=== PATIENT | male | born 1950 | race Caucasian/White ===

== ENCOUNTER 2020-02-21 10:48 | Outpatient (REF) | payer MEDICARE, MEDICAID, SELFPAY ==
[2020-02-21 12:21] LABS: MANUAL DIFF FLAG NO
[2020-02-21 12:40] LABS: Basophils Percent Auto 0.5 % (0-2); Eosinophils Absolute Auto 0.1 X10*3/uL (0.0-0.4); Eosinophils Percent Auto 1.6 % (0-4); Hematocrit 39.8 % (42-52); Hemoglobin 13.1 g/dl (14.0-18.0); Imm Gran Abs Auto 0.01 X10*3/uL (0.00-0.03); Imm Gran Pct Auto 0.2 % (0.0-0.4); Lymphocytes Absolute Auto 2.4 X10*3/uL (1.2-4.9); Mean Corpuscular HGB Conc 32.9 g/dl (31.0-36.0); Mean Corpuscular Hemoglobin 29.9 pg (27.0-33.0); Mean Corpuscular Volume 90.9 fL (80-98); Monocytes Absolute Auto 0.7 X10*3/uL (0.1-1.2); Monocytes Percent Auto 11.5 % (2-11); Neutrophils Absolute Auto 2.6 X10*3/uL (2.0-8.3); Neutrophils Percent Auto 45.2 % (45-73); Platelet Count 263 X10*3/uL (160-400); Red Blood Count 4.38 X10*6/uL (4.60-5.80); Red Cell Distribution Width 13.8 % (11.0-16.0); White Blood Count 5.7 X10*3/uL (4.8-10.8)
[2020-02-21 12:59] LABS: Alanine Aminotransferase 33 U/L (0-40); Albumin Level 4.6 g/dL (3.5-5.0); Alkaline Phosphatase 68 U/L (39-117); Anion Gap 10 (12-20); Aspartate Amino Transferase 29 U/L (5-37); Bilirubin Total 0.6 mg/dL (0.0-1.0); Blood Urea Nitrogen 15 mg/dL (9-16); C Reactive Protein 0.16 mg/dL (< or = 0.50); Calcium 9.7 mg/dL (8.4-10.2); Carbon Dioxide 31 mmol/L (22-29); Chloride 101 mmol/L (96-108); Estimated Glomerular Filt Rate > 60; Glucose Random 200 mg/dL (60-115); Potassium 5.3 mmol/l (3.3-5.1); Sodium 137 mmol/L (135-145); Total Protein 6.9 g/dL (6.5-8.0)
== END 2020-02-21 10:49 | disposition home or self-care (01) ==
LOC: HO.LAB 10:48
PROVIDERS: PCP Internal Medicine; Referring Provider Internal Medicine; Visit Provider Student in an Organized Health Care Education/Training Program
DX: M19.90 Unspecified osteoarthritis, unspecified site (principal); Z79.899 Other long term (current) drug therapy
CPT/HCPCS: 36415; 80053; 85025; 86140; 99212

== ENCOUNTER 2020-07-12 08:30 | Outpatient (REF) | payer MEDICARE, MEDICAID, SELFPAY ==
[2020-07-12 09:37] LABS: MANUAL DIFF FLAG NO
[2020-07-12 09:55] LABS: Basophils Percent Auto 0.4 % (0-2); Eosinophils Absolute Auto 0.2 X10*3/uL (0.0-0.4); Eosinophils Percent Auto 2.8 % (0-4); Hematocrit 41.4 % (42-52); Hemoglobin 13.7 g/dl (14.0-18.0); Imm Gran Abs Auto 0.01 X10*3/uL (0.00-0.03); Imm Gran Pct Auto 0.1 % (0.0-0.4); Lymphocytes Absolute Auto 2.6 X10*3/uL (1.2-4.9); Lymphocytes Percent Auto 36.8 % (20-40); Mean Corpuscular HGB Conc 33.1 g/dl (31.0-36.0); Mean Corpuscular Volume 90.6 fL (80-98); Mean Platelet Volume 11.2 fL (9.4-12.4); Monocytes Absolute Auto 0.5 X10*3/uL (0.1-1.2); Monocytes Percent Auto 6.5 % (2-11); Neutrophils Absolute Auto 3.8 X10*3/uL (2.0-8.3); Neutrophils Percent Auto 53.4 % (45-73); Platelet Count 250 X10*3/uL (160-400); Red Blood Count 4.57 X10*6/uL (4.60-5.80); Red Cell Distribution Width 13.4 % (11.0-16.0); White Blood Count 7.1 X10*3/uL (4.8-10.8)
[2020-07-12 10:18] LABS: Alanine Aminotransferase 36 U/L (0-40); Albumin Level 4.4 g/dL (3.5-5.0); Alkaline Phosphatase 71 U/L (39-117); Anion Gap 10 (12-20); Aspartate Amino Transferase 26 U/L (5-37); Bilirubin Total 0.8 mg/dL (0.0-1.0); Blood Urea Nitrogen 15 mg/dL (9-16); C Reactive Protein 0.14 mg/dL (< or = 0.50); Calcium 9.7 mg/dL (8.4-10.2); Carbon Dioxide 31 mmol/L (22-29); Chloride 105 mmol/L (96-108); Estimated Glomerular Filt Rate > 60; Glucose Random 162 mg/dL (60-115); Potassium 5.3 mmol/L (3.3-5.1); Sodium 141 mmol/L (135-145); Total Protein 6.9 g/dL (6.5-8.0)
== END 2020-07-12 08:31 | disposition home or self-care (01) ==
LOC: HO.LAB 08:30
PROVIDERS: PCP Internal Medicine; Referring Provider Internal Medicine; Visit Provider Student in an Organized Health Care Education/Training Program
DX: M19.90 Unspecified osteoarthritis, unspecified site (principal); Z79.899 Other long term (current) drug therapy
CPT/HCPCS: 36415; 80053; 85025; 86140; 99212

== ENCOUNTER 2020-10-18 09:25 | Outpatient (REF) | payer MEDICARE, MEDICAID, SELFPAY ==
[2020-10-18 10:44] LABS: MANUAL DIFF FLAG NO
[2020-10-18 10:51] LABS: Basophils Percent Auto 0.3 % (0-2); Eosinophils Absolute Auto 0.1 X10*3/uL (0.0-0.4); Eosinophils Percent Auto 2.1 % (0-4); Hematocrit 38.6 % (42-52); Hemoglobin 13.2 g/dl (14.0-18.0); Imm Gran Abs Auto 0.02 X10*3/uL (0.00-0.03); Imm Gran Pct Auto 0.3 % (0.0-0.4); Lymphocytes Absolute Auto 2.7 X10*3/uL (1.2-4.9); Mean Corpuscular HGB Conc 34.2 g/dl (31.0-36.0); Mean Corpuscular Hemoglobin 30.6 pg (27.0-33.0); Mean Corpuscular Volume 89.6 fL (80-98); Mean Platelet Volume 10.9 fL (9.4-12.4); Monocytes Absolute Auto 0.6 X10*3/uL (0.1-1.2); Monocytes Percent Auto 8.4 % (2-11); Neutrophils Absolute Auto 3.3 X10*3/uL (2.0-8.3); Neutrophils Percent Auto 48.9 % (45-73); Platelet Count 240 X10*3/uL (160-400); Red Blood Count 4.31 X10*6/uL (4.60-5.80); Red Cell Distribution Width 13.6 % (11.0-16.0); White Blood Count 6.8 X10*3/uL (4.8-10.8)
[2020-10-18 11:20] LABS: Alanine Aminotransferase 23 U/L (0-40); Albumin Level 4.2 g/dL (3.5-5.0); Alkaline Phosphatase 65 U/L (39-117); Anion Gap 12 (12-20); Aspartate Amino Transferase 21 U/L (5-37); Bilirubin Total 0.5 mg/dL (0.0-1.0); Blood Urea Nitrogen 12 mg/dL (9-16); C Reactive Protein 0.06 mg/dL (< or = 0.50); Calcium 9.6 mg/dL (8.4-10.2); Carbon Dioxide 29 mmol/L (22-29); Chloride 105 mmol/L (96-108); Estimated Glomerular Filt Rate > 60; Glucose Random 116 mg/dL (60-115); Potassium 4.8 mmol/L (3.3-5.1); Sodium 141 mmol/L (135-145); Total Protein 6.7 g/dL (6.5-8.0)
== END 2020-10-18 09:26 | disposition home or self-care (01) ==
LOC: HO.LAB 09:25
PROVIDERS: PCP Internal Medicine; Visit Provider Student in an Organized Health Care Education/Training Program
DX: M19.90 Unspecified osteoarthritis, unspecified site (principal); Z79.899 Other long term (current) drug therapy
CPT/HCPCS: 36415; 80053; 85025; 86140; 99212

== ENCOUNTER 2021-03-18 09:10 | Outpatient (REF) | payer MEDICARE, MEDICAID, SELFPAY ==
[2021-03-18 11:41] LABS: MANUAL DIFF FLAG NO
[2021-03-18 11:45] LABS: Basophils Percent Auto 0.5 % (0-2); Eosinophils Absolute Auto 0.2 X10*3/uL (0.0-0.4); Hematocrit 40.4 % (42.0-52.0); Hemoglobin 13.5 g/dl (14.0-18.0); Imm Gran Abs Auto 0.02 X10*3/uL (0.00-0.03); Imm Gran Pct Auto 0.2 % (0.0-0.4); Lymphocytes Absolute Auto 2.6 X10*3/uL (1.2-4.9); Lymphocytes Percent Auto 31.7 % (20-40); Mean Corpuscular HGB Conc 33.4 g/dl (31.0-36.0); Mean Corpuscular Hemoglobin 30.5 pg (27.0-33.0); Mean Corpuscular Volume 91.4 fL (80.0-98.0); Mean Platelet Volume 11.3 fL (9.4-12.4); Monocytes Absolute Auto 0.6 X10*3/uL (0.1-1.2); Monocytes Percent Auto 7.6 % (2-11); Neutrophils Absolute Auto 4.8 x10*3/uL (2.0-8.3); Platelet Count 267 X10*3/uL (160-400); Red Blood Count 4.42 X10*6/uL (4.60-5.80); Red Cell Distribution Width 13.7 % (11.0-16.0); White Blood Count 8.2 X10*3/uL (4.8-10.8)
[2021-03-18 12:28] LABS: Erythrocyte Sedimentation Rate 2 MM/HR (0-15)
[2021-03-18 12:33] LABS: Alanine Aminotransferase 26 U/L (0-40); Albumin Level 4.1 g/dL (3.5-5.0); Alkaline Phosphatase 84 U/L (39-117); Anion Gap 13 (12-20); Aspartate Amino Transferase 27 U/L (5-37); Bilirubin Total 0.8 mg/dL (0.0-1.0); Blood Urea Nitrogen 11 mg/dL (9-16); C Reactive Protein 0.12 mg/dL (< or = 0.50); Calcium 9.5 mg/dL (8.4-10.2); Carbon Dioxide 29 mmol/L (22-29); Chloride 105 mmol/L (96-108); Cholesterol 170 mg/dL; Estimated Glomerular Filt Rate > 60; Glucose Fasting 200 mg/dL (60-99); HDL Cholesterol 72 mg/dL; Iron 126 mcg/dL (45-160); LDL Cholesterol Calculated 86 mg/dl; Percent Iron Saturation 46 % (15-50); Potassium 4.6 mmol/L (3.3-5.1); Sodium 142 mmol/L (135-145); Total Iron Binding Capacity 274 mcg/dL (228-428); Total Protein 6.6 g/dL (6.5-8.0); Triglycerides 64 mg/dL; Unsaturated Iron Binding 148 ug/dL
== END 2021-03-18 09:11 | disposition home or self-care (01) ==
LOC: HO.HMGCLDS 09:10
PROVIDERS: Absent Provider Nurse Practitioner Family; PCP Internal Medicine; Visit Provider Internal Medicine
DX: E10.3299 Type 1 diabetes mellitus with mild nonproliferative diabetic retinopathy without macular edema, unspecified eye (principal); D64.9 Anemia, unspecified; E78.5 Hyperlipidemia, unspecified; M19.90 Unspecified osteoarthritis, unspecified site; I10 Essential (primary) hypertension; Z79.899 Other long term (current) drug therapy
CPT/HCPCS: 36415; 80048; 80053; 80061; 83540; 85025; 85652; 86140

== ENCOUNTER → 2021-03-20 12:55 | Outpatient (BNVA) | payer MEDICARE, MEDICAID, SELFPAY | PROVIDERS: PCP Internal Medicine; Visit Provider Nurse Practitioner Family | DX: M19.90 Unspecified osteoarthritis, unspecified site (principal); Z79.899 Other long term (current) drug therapy | CPT/HCPCS: 99212 ==

== ENCOUNTER 2021-06-16 13:38 | Outpatient (REF) | payer MEDICARE, MEDICAID, SELFPAY ==
[2021-06-16 16:36] LABS: MANUAL DIFF FLAG NO
[2021-06-16 16:37] LABS: Basophils Percent Auto 0.5 % (0-2); Eosinophils Absolute Auto 0.1 X10*3/uL (0.0-0.4); Eosinophils Percent Auto 1.4 % (0-4); Hematocrit 37.5 % (42.0-52.0); Hemoglobin 12.7 g/dl (14.0-18.0); Imm Gran Abs Auto 0.01 X10*3/uL (0.00-0.03); Imm Gran Pct Auto 0.2 % (0.0-0.4); Lymphocytes Absolute Auto 2.4 X10*3/uL (1.2-4.9); Lymphocytes Percent Auto 38.2 % (20-40); Mean Corpuscular HGB Conc 33.9 g/dl (31.0-36.0); Mean Corpuscular Hemoglobin 30.2 pg (27.0-33.0); Mean Corpuscular Volume 89.1 fL (80.0-98.0); Mean Platelet Volume 11.2 fL (9.4-12.4); Monocytes Absolute Auto 0.6 X10*3/uL (0.1-1.2); Monocytes Percent Auto 9.4 % (2-11); Neutrophils Absolute Auto 3.1 x10*3/uL (2.0-8.3); Neutrophils Percent Auto 50.3 % (45-73); Platelet Count 241 X10*3/uL (160-400); Red Blood Count 4.21 X10*6/uL (4.60-5.80); Red Cell Distribution Width 13.9 % (11.0-16.0); White Blood Count 6.3 X10*3/uL (4.8-10.8)
[2021-06-16 16:52] LABS: Alanine Aminotransferase 21 U/L (0-40); Albumin Level 4.2 g/dL (3.5-5.0); Alkaline Phosphatase 67 U/L (39-117); Anion Gap 14 (12-20); Aspartate Amino Transferase 20 U/L (5-37); Bilirubin Total 0.7 mg/dL (0.0-1.0); Blood Urea Nitrogen 14 mg/dL (9-16); C Reactive Protein 0.21 mg/dL (< or = 0.50); Calcium 9.9 mg/dL (8.4-10.2); Carbon Dioxide 27 mmol/L (22-29); Chloride 102 mmol/L (96-108); Estimated Glomerular Filt Rate > 60; Glucose Random 236 mg/dL (60-115); Potassium 4.9 mmol/L (3.3-5.1); Sodium 138 mmol/L (135-145); Total Protein 6.8 g/dL (6.5-8.0)
[2021-06-16 17:45] LABS: Erythrocyte Sedimentation Rate 3 MM/HR (0-15)
== END 2021-06-16 13:39 | disposition home or self-care (01) ==
LOC: HO.HMGCLDS 13:38
PROVIDERS: Absent Provider Internal Medicine; PCP Internal Medicine; Visit Provider Nurse Practitioner Family
DX: M19.90 Unspecified osteoarthritis, unspecified site (principal)
CPT/HCPCS: 36415; 80053; 85025; 85652; 86140

== ENCOUNTER → 2021-06-19 13:25 | Outpatient (BNVA) | payer MEDICARE, MEDICAID, SELFPAY | PROVIDERS: PCP Internal Medicine; Visit Provider Nurse Practitioner Family | DX: M19.90 Unspecified osteoarthritis, unspecified site (principal); Z79.899 Other long term (current) drug therapy | CPT/HCPCS: 99212 ==

== ENCOUNTER → 2021-06-25 10:30 | Outpatient (BNVA) | payer MEDICARE, MEDICAID, SELFPAY | PROVIDERS: PCP Internal Medicine; Referring Provider Internal Medicine; Visit Provider Physician Assistant | DX: Z86.010 Personal history of colon polyps (principal) | CPT/HCPCS: 99202 ==

== ENCOUNTER 2021-08-06 09:44 | Day surgery (SDC) | payer MEDICARE, MEDICAID, SELFPAY ==
[2021-08-01 12:43] VITALS: BMI 25.0
[2021-08-06 10:38] VITALS: BP 152/66; PULSE 61; RESP 18; TEMP 36.9; O2SAT 100
--- NOTE | 2021-08-06 10:38 | MHC.SHP ---
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) History of Previous Operations: Relevant previous surgery/procedure and date(s) (Hx of colonoscopy No pertinent past surgical history) Allergies: Allergies Allergy/AdvReac Type Severity Reaction Status Date / Time No Known Allergies Allergy Verified 06/25/21 10:35 Review of Systems Sugical H&P ROS: Negative: Constitution, Cardiovascular, Respiratory, Neurological, Psychiatric, Hem-Onc, Allergic/Immunologic, Gastrointestinal, Genitourinary, Musculoskeletal, Integumentary, Endocrine and Eyes/Ears/Nose/Throat Exam Surgical H&P Exam: Normal: HEENT, Normal: Heart, Normal: Lungs, Normal: Extremities, Normal: Abdomen, Normal: Skin and Normal: Neurological Plan Diagnosis/Plan: Unchanged I have reviewed the history and physical and performed a pertinent physical examination on my patient. No changes have occurred unless specified.
[2021-08-06 10:52] LABS: Glucose, Whole Blood 166 mg/dL (60-115)
--- NOTE | 2021-08-06 12:03 | PM.OP ---
Brief Operative Note Date of Service: 08/06/21 Pre-op diagnosis: screening colonoscopy Post-op diagnosis: same Procedure: see op note Surgeon: Guillermina Mejía MD Anesthesia: MAC Was an Travel Registered Nurse Pacu used for this Procedure?: No Estimated blood loss (mL): 0 Condition: stable Disposition: PACU
--- NOTE | 2021-08-06 12:03 | W.PM.OPN ---
Operative Note Operative Note Date of Service: 08/06/21 Narrative: Operative Information Procedure Description: Colonoscopy Indication: screening colonoscopy Anesthesia: MAC COLONOSCOPY Instrument: Olympus variable stiffness pediatric scope 190L Colonoscopy Monitoring: Vital signs and clinical assessment, continuous EKG monitoring, Pulse oximetry, Carbon Dioxide monitoring and blood pressure monitoring were done throughout the procedure. Colon withdrawal time was 11 minutes. Procedure: The patient was placed in the left lateral decubitis position and pre-procedure medications were administered. After a digital rectal examination of the ano-rectum, the video colonoscope was inserted into the rectum and advanced through the colon to the cecum/TI. The colonoscope was slowly withdrawn in a retrograde panoramic fashion and the colon mucosa was carefully examined including a retroflexed view of the rectum. Findings and interventions are described below. Procedure Difficulty: moderate due to tortuous colon Findings: Terminal Ileum-normal Cecum:normal Ascending Colon: 10 mm sessile polyp removed with cold forceps Transverse Colon -normal Descending Colon:normal Sigmoid Colon: normal Rectum: Retroflexion with small internal hemorrhoids, grade I Anorectum - normal Colon preparation: Victor Bowel Preparation Scale Right colon; 3 Transverse colon: 3 Left colon; 3 (0 = Unprepared colon segment with mucosa not seen due to solid stool that cannot be cleared. 1 = Portion of mucosa of the colon segment seen, but other areas of the colon segment not well seen due to staining, residual stool and/or opaque liquid. 2 = Minor amount of residual staining, small fragments of stool and/or opaque liquid, but mucosa of colon segment seen well. 3 = Entire mucosa of colon segment seen well with no residual staining, small fragments of stool or opaque liquid) Impression and Post Procedure Diagnosis: polyp internal hemorrhoids Plan: High fiber diet leaflet Avoid straining at stool, epsom salts and sitz bath, anusol supps or cream Repeat Colonoscopy in 5 years if adenomatous polyp, 10 yrs if benign or earlier if clinically indicated Above findings were reviewed with the patient and relevant handouts were provided if indicated.
--- NOTE | 2021-08-06 12:06 | HO.ANESPROP2 ---
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 Son No problems noted. Son No problems noted. Brother No problems noted. Brother No problems noted. Brother No problems noted. Brother No problems noted. Family history of problems with anesthesia: No Surgical History Surgical History Hx of colonoscopy No pertinent past surgical history History of Problems with Anesthesia: No Social History Social History Alcohol intake: current Alcohol intake frequency: a few times a month Alcohol type: beer Patient Tobacco Use Status: Never used Tobacco e-Cigarette/Vaping Use: Never Used Second Hand Smoke Exposure: No Substance Use Type Other:: cbd Are you DNR?: No Advance Directives: No Advance Directives Information Provided: Yes Recently lost weight without trying: No Current occupational status: retired Meds Allergies Allergy/AdvReac Type Severity Reaction Status Date / Time No Known Allergies Allergy Verified 06/25/21 10:35 Home Medications Medication Instructions Recorded Confirmed Last Taken Type aspirin 81 mg tablet,delayed 81 mg PO DAILY 02/21/20 03/25/21 Unknown History release (Adult Low Dose Aspirin) calcium carbonate 600 mg-vitamin 1 tab PO DAILY 02/21/20 03/25/21 Unknown History D3 10 mcg (400 unit) tablet (Calcium 600 + D(3)) insulin aspart U-100 100 unit/mL 5 unit SUBCUT DIRECTED ml 02/21/20 03/25/21 Unknown History (3 mL) subcutaneous pen (Novolog Flexpen U-100 Insulin aspart) insulin glargine 100 unit/mL 20 unit SUBCUT DIRECTED ml 02/21/20 03/25/21 Unknown History subcutaneous solution (Lantus U-100 Insulin) rzcnfvvs-ixw-dgbnq acid 0.4 1 tab PO DAILY 02/21/20 03/25/21 Unknown History mg-lycopene 300 mcg-lutein 250 mcg tablet (Centrum Silver) insulin syringe-needle U-100 0.3 #10 ea 06/25/21 Unknown History mL 31 gauge x 08/25 Exam Exam Date and Time: August 06, 2021 1206 Height,Weight and Vital Signs: Height 5 ft 7 in Weight 72.575 kg Last Vital Signs Temp 98.4 F 08/06/21 10:38 Pulse 61 08/06/21 10:38 Resp 18 08/06/21 10:38 BP 152/66 H 08/06/21 10:38 Pulse Ox 100 08/06/21 10:38 Pertinent Lab Results Pertinent Lab Results: Laboratory Tests 08/06/21 10:36 POC Glucose 166 H Airway Mallampati Class: II TM Dist: >3cm Neck ROM: Full Heart: rrr Lungs: cta Assessment and Plan Assessment Anesthesia Assessment: Anesthesia Plan Discussed and Chart Reviewed Final Anesthetic Review Family History of Problems with Anesthesia: No History of Problems with Anesthesia: No NPO: Yes ASA Class: III Final Preanesthetic Review: No Changes in Pt Med Stat, Meds/Allgs Chart Reviewed, Consent Obtained/Reviewed and Anes Risks/Benef Reviewed Patient Risk: Intermediate Procedure Risk: Intermediate Anesthetic Plan Anesthetic Plan: MAC: Disposition: Standard PACU
[2021-08-06] MEDS: Lactated Ringers 1,000 ML 50 ML IVCONT (12:10)
[2021-08-06 12:47] VITALS: BP 110/45; PULSE 64; RESP 16; TEMP 36.7; O2SAT 100
[2021-08-06 12:58] LABS: Glucose, Whole Blood 126 mg/dL (60-115)
[2021-08-06 13:12] VITALS: BP 139/61; PULSE 55; RESP 16; TEMP 36.6; O2SAT 100
== END 2021-08-06 13:53 | disposition home or self-care (01) ==
PROVIDERS: PCP Internal Medicine; Visit Provider Internal Medicine Gastroenterology
PROC: 0DJD8ZZ Inspection of Lower Intestinal Tract, Via Natural or Artificial Opening Endoscopic (ICD-10-PCS; CPT 45378; principal; 2021-08-06 11:00)
DX: Z12.11 Encounter for screening for malignant neoplasm of colon (principal); Z86.010 Personal history of colon polyps; K63.5 Polyp of colon; K64.0 First degree hemorrhoids; Q43.8 Other specified congenital malformations of intestine; D64.9 Anemia, unspecified; E78.5 Hyperlipidemia, unspecified; I10 Essential (primary) hypertension; M13.80 Other specified arthritis, unspecified site; E10.319 Type 1 diabetes mellitus with unspecified diabetic retinopathy without macular edema; Z79.4 Long term (current) use of insulin; Z79.82 Long term (current) use of aspirin; Z79.899 Other long term (current) drug therapy
CPT/HCPCS: 45380; 82947; 88305

== ENCOUNTER → 2021-10-07 12:53 | Outpatient (BNVA) | payer MEDICARE, MEDICAID, SELFPAY | PROVIDERS: PCP Internal Medicine; Visit Provider Nurse Practitioner Family | DX: M19.90 Unspecified osteoarthritis, unspecified site (principal); Z79.899 Other long term (current) drug therapy | CPT/HCPCS: 99212 ==

== ENCOUNTER 2021-10-11 09:00 | Outpatient (REF) | payer MEDICARE, MEDICAID, SELFPAY ==
[2021-10-11 11:03] LABS: MANUAL DIFF FLAG NO
[2021-10-11 11:22] LABS: Basophils Percent Auto 0.5 % (0-2); Eosinophils Absolute Auto 0.2 X10*3/uL (0.0-0.4); Eosinophils Percent Auto 3.2 % (0-4); Hematocrit 40.6 % (42.0-52.0); Hemoglobin 13.6 g/dl (14.0-18.0); Imm Gran Abs Auto 0.01 X10*3/uL (0.00-0.03); Imm Gran Pct Auto 0.2 % (0.0-0.4); Lymphocytes Absolute Auto 2.8 X10*3/uL (1.2-4.9); Lymphocytes Percent Auto 47.9 % (20-40); Mean Corpuscular HGB Conc 33.5 g/dl (31.0-36.0); Mean Corpuscular Hemoglobin 30.4 pg (27.0-33.0); Mean Corpuscular Volume 90.6 fL (80.0-98.0); Mean Platelet Volume 11.2 fL (9.4-12.4); Monocytes Absolute Auto 0.5 X10*3/uL (0.1-1.2); Monocytes Percent Auto 8.1 % (2-11); Neutrophils Absolute Auto 2.4 x10*3/uL (2.0-8.3); Neutrophils Percent Auto 40.1 % (45-73); Platelet Count 237 X10*3/uL (160-400); Red Blood Count 4.48 X10*6/uL (4.60-5.80); Red Cell Distribution Width 13.8 % (11.0-16.0); White Blood Count 5.9 X10*3/uL (4.8-10.8)
[2021-10-11 11:23] LABS: Alanine Aminotransferase 24 U/L (0-40); Albumin Level 4.2 g/dL (3.5-5.0); Alkaline Phosphatase 73 U/L (39-117); Anion Gap 12 (12-20); Aspartate Amino Transferase 24 U/L (5-37); Bilirubin Total 0.6 mg/dL (0.0-1.0); Blood Urea Nitrogen 16 mg/dL (9-16); C Reactive Protein 0.09 mg/dL (< or = 0.50); Calcium 9.4 mg/dL (8.4-10.2); Carbon Dioxide 28 mmol/L (22-29); Chloride 107 mmol/L (96-108); Cholesterol 180 mg/dL; Estimated Glomerular Filt Rate > 60; Glucose Fasting 116 mg/dL (60-99); HDL Cholesterol 73 mg/dL; Iron 82 mcg/dL (45-160); LDL Cholesterol Calculated 98 mg/dl; Percent Iron Saturation 30 % (15-50); Potassium 4.8 mmol/L (3.3-5.1); Sodium 142 mmol/L (135-145); Total Iron Binding Capacity 277 mcg/dL (228-428); Total Protein 6.6 g/dL (6.5-8.0); Triglycerides 46 mg/dL; Unsaturated Iron Binding 195 ug/dL
[2021-10-11 12:09] LABS: Erythrocyte Sedimentation Rate 2 MM/HR (0-15)
== END 2021-10-11 09:01 | disposition home or self-care (01) ==
LOC: HO.HMGCLDS 09:00
PROVIDERS: PCP Internal Medicine; Visit Provider Nurse Practitioner Family
DX: E78.5 Hyperlipidemia, unspecified (principal); I10 Essential (primary) hypertension; M19.90 Unspecified osteoarthritis, unspecified site; D64.9 Anemia, unspecified
CPT/HCPCS: 36415; 80048; 80053; 80061; 83540; 85025; 85652; 86140

== ENCOUNTER → 2021-10-23 14:22 | Outpatient (BNVA) | payer MEDICARE, MEDICAID, SELFPAY | PROVIDERS: PCP Internal Medicine; Visit Provider Physician Assistant | DX: K63.5 Polyp of colon (principal); Z86.010 Personal history of colon polyps | CPT/HCPCS: 99212 ==

== ENCOUNTER → 2022-01-07 11:00 | Outpatient (BNVA) | payer MEDICARE, MEDICAID, SELFPAY | PROVIDERS: PCP Internal Medicine; Visit Provider Nurse Practitioner Family | DX: M13.80 Other specified arthritis, unspecified site (principal); R22.41 Localized swelling, mass and lump, right lower limb; Z79.899 Other long term (current) drug therapy | CPT/HCPCS: 99212 ==

== ENCOUNTER 2022-01-13 13:53 | Outpatient (REF) | payer MEDICARE, MEDICAID, SELFPAY ==
--- NOTE | ~2022-01-13 | XR_ITS ---
EXAMINATION: XR TIBIA AND FIBULA, RIGHT CLINICAL INFORMATION: Swelling, mass, and lump of the right lower limb. COMPARISON: Right ankle radiographs dated 11/21/2014. TECHNIQUE: AP and lateral views of the right tibia and fibula were obtained. FINDINGS: No acute fracture or dislocation. No joint space narrowing or marginal osteophytes. No lytic or blastic osseous lesion. Probable phleboliths within the anterior subcutaneous tissues. Atherosclerotic calcifications. XR/XR tibia fibula RT 2V IMPRESSION: Probable phleboliths within the anterior subcutaneous tissues. No acute osseous abnormality.
[2022-01-13 16:31] LABS: MANUAL DIFF FLAG NO
[2022-01-13 16:34] LABS: Basophils Percent Auto 0.4 % (0-2); Eosinophils Absolute Auto 0.1 X10*3/uL (0.0-0.4); Eosinophils Percent Auto 0.9 % (0-4); Hemoglobin 12.4 g/dl (14.0-18.0); Imm Gran Abs Auto 0.02 X10*3/uL (0.00-0.03); Imm Gran Pct Auto 0.3 % (0.0-0.4); Lymphocytes Absolute Auto 2.5 X10*3/uL (1.2-4.9); Mean Corpuscular HGB Conc 33.5 g/dl (31.0-36.0); Mean Corpuscular Volume 89.6 fL (80.0-98.0); Mean Platelet Volume 11.3 fL (9.4-12.4); Monocytes Absolute Auto 0.7 X10*3/uL (0.1-1.2); Monocytes Percent Auto 8.9 % (2-11); Neutrophils Absolute Auto 4.1 x10*3/uL (2.0-8.3); Neutrophils Percent Auto 55.5 % (45-73); Platelet Count 225 X10*3/uL (160-400); Red Blood Count 4.13 X10*6/uL (4.60-5.80); White Blood Count 7.4 X10*3/uL (4.8-10.8)
[2022-01-13 16:46] LABS: Alanine Aminotransferase 37 U/L (0-40); Aspartate Amino Transferase 44 U/L (5-37); C Reactive Protein 0.16 mg/dL (< or = 0.50); Estimated Glomerular Filt Rate > 60
[2022-01-13 17:24] LABS: Erythrocyte Sedimentation Rate 3 MM/HR (0-15)
== END 2022-01-13 13:54 | disposition home or self-care (01) ==
LOC: HO.HMGCX 13:53
PROVIDERS: PCP Internal Medicine; Visit Provider Nurse Practitioner Family
DX: R22.41 Localized swelling, mass and lump, right lower limb (principal); M19.90 Unspecified osteoarthritis, unspecified site; Z79.899 Other long term (current) drug therapy
CPT/HCPCS: 36415; 73590; 82565; 84450; 84460; 85025; 85652; 86140

== ENCOUNTER 2022-01-28 12:40 | Outpatient (REF) | payer MEDICARE, MEDICAID, SELFPAY ==
[2022-01-28 14:14] LABS: Alanine Aminotransferase 26 U/L (0-40); Aspartate Amino Transferase 27 U/L (5-37)
== END 2022-01-28 12:41 | disposition home or self-care (01) ==
LOC: HO.HMGCLDS 12:40
PROVIDERS: PCP Internal Medicine; Visit Provider Nurse Practitioner Family
DX: Z79.899 Other long term (current) drug therapy (principal)
CPT/HCPCS: 36415; 84450; 84460

== ENCOUNTER 2022-02-26 13:33 | Outpatient (REF) | payer MEDICARE, MEDICAID, SELFPAY ==
[2022-02-26 17:10] LABS: Alanine Aminotransferase 25 U/L (0-40); Alkaline Phosphatase 71 U/L (39-117); Anion Gap 13 (12-20); Aspartate Amino Transferase 23 U/L (5-37); Bilirubin Total 0.8 mg/dL (0.0-1.0); Blood Urea Nitrogen 15 mg/dL (9-16); Calcium 9.9 mg/dL (8.4-10.2); Carbon Dioxide 29 mmol/L (22-29); Chloride 102 mmol/L (96-108); Estimated Glomerular Filt Rate > 60; Glucose Random 197 mg/dL (60-115); Sodium 140 mmol/L (135-145); Total Protein 6.9 g/dL (6.5-8.0)
[2022-02-26 17:20] LABS: Albumin Level 4.3 g/dL (3.5-5.0)
== END 2022-02-26 13:34 | disposition home or self-care (01) ==
LOC: HO.HMGCLDS 13:33
PROVIDERS: PCP Internal Medicine; Visit Provider Nurse Practitioner Family
DX: Z79.899 Other long term (current) drug therapy (principal)
CPT/HCPCS: 36415; 80053

== ENCOUNTER 2022-03-23 10:11 | Outpatient (REF) | payer MEDICARE, MEDICAID, SELFPAY ==
[2022-03-23 11:17] LABS: MANUAL DIFF FLAG NO
[2022-03-23 11:30] LABS: Basophils Percent Auto 0.4 % (0-2); Eosinophils Absolute Auto 0.1 X10*3/uL (0.0-0.4); Eosinophils Percent Auto 1.3 % (0-4); Hematocrit 40.4 % (42.0-52.0); Hemoglobin 13.6 g/dl (14.0-18.0); Imm Gran Abs Auto 0.04 X10*3/uL (0.00-0.03); Imm Gran Pct Auto 0.4 % (0.0-0.4); Lymphocytes Percent Auto 21.8 % (20-40); Mean Corpuscular HGB Conc 33.7 g/dl (31.0-36.0); Mean Corpuscular Hemoglobin 30.4 pg (27.0-33.0); Mean Corpuscular Volume 90.4 fL (80.0-98.0); Mean Platelet Volume 11.7 fL (9.4-12.4); Monocytes Absolute Auto 0.9 X10*3/uL (0.1-1.2); Monocytes Percent Auto 9.5 % (2-11); Neutrophils Absolute Auto 6.1 x10*3/uL (2.0-8.3); Neutrophils Percent Auto 66.6 % (45-73); Platelet Count 251 X10*3/uL (160-400); Red Blood Count 4.47 X10*6/uL (4.60-5.80); Red Cell Distribution Width 13.4 % (11.0-16.0); White Blood Count 9.2 X10*3/uL (4.8-10.8)
[2022-03-23 11:41] LABS: Cholesterol 188 mg/dL; HDL Cholesterol 90 mg/dL; LDL Cholesterol Calculated 87 mg/dl; Triglycerides 58 mg/dL
== END 2022-03-23 10:12 | disposition home or self-care (01) ==
LOC: HO.HMGCLDS 10:11
PROVIDERS: PCP Internal Medicine; Visit Provider Internal Medicine
DX: D64.9 Anemia, unspecified (principal); E78.5 Hyperlipidemia, unspecified
CPT/HCPCS: 36415; 80061; 85025

== ENCOUNTER 2022-03-26 10:55 | Outpatient (AMB) | payer MEDICARE, MEDICAID, SELFPAY ==
--- NOTE | 2022-03-26 11:05 | MHC.PC.OV ---
Vital Signs 03/26/22 11:15 Height 5 ft 7 in Weight 161 lb BMI 25.2 BP 140/66 H Blood Pressure Location Lt brachial Position Sitting Pulse 71 Pulse Source Pulse Oximeter Pulse Oximetry (%) 100 Intake Visit Reasons: Physical Intake Note: Pt is here today for his PE Allergies No Known Allergies Allergy (Verified 09/02/22 11:58) Medication List - Last Reconciled 11/22/22 by Cortney Blakely MD amlodipine 5 mg PO DAILY aspirin (Adult Low Dose Aspirin) 81 mg PO DAILY calcium carbonate-vitamin D3 600 mg-10 mcg (400 unit) (Calcium 600 + D(3)) 1 tab PO DAILY folic acid 1 mg PO DAILY insulin aspart U-100 (Novolog FlexPen U-100 Insulin aspart) 5 units subcut DIRECTED insulin glargine (Lantus U-100 Insulin) 11.5 units subcut DIRECTED insulin syringe-needle U-100 As directed lisinopril 20 mg (2 x 10 mg) PO DAILY methotrexate sodium 15 mg (6 x 2.5 mg) PO QWEEK fdyllzfi-jlp-BD-lycopen-lutein 0.4 mg-300 mcg- 250 mcg (Centrum Silver) 1 tab PO DAILY simvastatin 20 mg PO DAILY Tobacco use date assessed: 03/26/22 Last assessed Fall Risk: 03/26/22 HPI Physical HPI Details 71-year-old male with diabetes mellitus, dyslipidemia , hypertension, and history of seronegative rheumatoid arthritis, here today for his physical exam. He has been feeling well, no new complaints at present time. Currently taking Lantus and NovoLog for his diabetes mellitus, amlodipine, and lisinopril for his blood pressure, and simvastatin for his dyslipidemia and as well as methotrexate for his rheumatoid arthritis. Up-to-date with his screening colonoscopy done by Dr. Mejía, with removal of a tubular adenoma, procedure to be repeated again in 2026. He has had his COVID vaccine but has not yet had his booster, has had his pneumococcal vaccination but is due for his Prevnar 20, up-to-date with his shoes flu shot and Tdap, but has never had his shingles vaccination yet. 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 Son No problems noted. Son No problems noted. Brother No problems noted. Brother No problems noted. Brother No problems noted. Brother No problems noted. Social History Housing: House Alcohol intake: current Alcohol intake frequency: a few times a month Alcohol type: beer Patient Tobacco Use Status: Never used Tobacco e-Cigarette/Vaping Use: Never Used Second Hand Smoke Exposure: No service: No Current occupational status: retired Cognitive needs: No Hearing needs: No Vision needs: Yes Questionnaire PHQ-9 Over the last 2 weeks, how often have you been bothered by any of the following problems? 1. Little interest or pleasure in doing things: not at all 2. Feeling down, depressed, or hopeless: not at all 3. Trouble falling or staying asleep, or sleeping too much: not at all 4. Feeling tired or having little energy: not at all 5. Poor appetite or overeating: not at all 6. Feeling bad about yourself - or that you are a failure or have let yourself or your family down: not at all 7. Trouble concentrating on things, such as reading the newspaper or watching television: not at all 8. Moving or speaking so slowly that other people could have noticed. Or the opposite - being so fidgety or restless that you have been moving around a lot more than usual: not at all 9. Thoughts that you would be better off or of hurting yourself in some way: not at all Total score: 0 Depression Screening Interpretation: Negative 24359 - PHQ-9 Billing: Yes Source: Developed by Drs. Seferino Valdez, Mehreen Briceno, Obie Mcgee and colleagues, with an educational jad from [employer]. Thrive Questionnaire Declines Thrive assessment: No Date Thrive assessed: 03/26/22 I am a: Patient What is your living situation today?: I have a steady place to live Within the past 12 months, did the food you bought not last and you didn't have the money to get more?: Never true Within the past 12 months, did you worry whether your food would run out before you got money to buy more?: Never true Do you have trouble paying for medicines?: No Do you have trouble getting transportation to medical appointments?: No Do you have trouble paying your heating and electricity bill?: Yes Do you have trouble taking care of your child, family member or friend?: No Do you have trouble with day-to-day activities such as bathing, preparing meals, shopping, managing finances, etc.?: No Are you currently unemployed and looking for a job?: No Are you interested in more education?: No AUDIT C Alcohol Use Questionnaire (AUDIT-C) 1. How often do you have a drink containing alcohol?: 4 or more times a week 2. How many drinks containing alcohol do you have on a typical day when you are drinking?: 1 or 2 3. How often do you have six or more drinks on one occasion?: Never Total Score: 4 LESVIA-7 AMB Questionnaire LESVIA-7 Date LESVIA - 7 assessed: 03/26/22 Feeling nervous, anxious, or on edge: 0 = Not at all Not being able to stop or control worryin = Not at all Worrying too much about different things: 0 = Not at all Trouble relaxin = Not at all Being so restless that it is hard to sit still: 0 = Not at all Becoming easily annoyed or irritable: 0 = Not at all Feeling afraid as if something awful might happen: 0 = Not at all Total LESVIA-7 score (0-4 normal; 5-9 mild; 10-14 moderate; 15-21 severe): 0 Source: Developed by Drs. Seferino Valdez, Mehreen Briceno, Obie Mcgee and colleagues, with an educational jad from [employer]. LESVIA-7 Assessment Billing LESVIA-7 Assessment Tool: LESVIA-7 Assessment 60227 Review of Systems Const Denies body aches, Denies fatigue, Denies fever(s) and Denies lethargy Eyes Details: Goes to [facility] for his routine eye exam, currently up-to-date ENT Reports no additional complaints and Reports Normal hearing present Card Denies chest pain, Denies rapid heart rate, Denies irregular heart rhythm, Denies leg edema and Denies lightheadedness Resp Denies chest congestion, Denies cough and Denies pain with cough GI Denies abdominal pain, Denies melena, Denies hematochezia, Denies change in bowel habits and Denies heartburn Reports no additional complaints Musc Reports no additional complaints Skin/Breast Denies breast mass, Denies lesions and Denies rash Neuro Reports no additional complaints, Reports Normal hearing present and Denies Sensory deficit (Neuro) Psych Reports no additional complaints Endo Denies fatigue Stanley/Lymph Denies easy bleeding, Denies easy bruising and Denies lymphadenopathy Aller/Immun Reports no additional complaints Physical exam (Primary Care) Vital Signs: Last Vital Signs Pulse 71 03/26/22 11:15 BP 140/66 H 03/26/22 11:15 Pulse Ox 100 03/26/22 11:15 BMI result Body Mass Index 25.2 Tobacco/Smoking Status: Tobacco use Status Tobacco use date assessed 03/26/22 03/26/22 11:07 Patient Tobacco Use Status Never used Tobacco 03/26/22 11:07 e-Cigarette/Vaping Use Never Used 03/26/22 11:07 PHQ-9: PHQ-9 Score PHQ-9: Total score 0 11/22/22 02:04 Depression Screening Interpretation: Negative Thrive Assessment: Date of Thrive Assessment Date Thrive assessed 03/26/22 03/26/22 11:17 Const General: cooperative, no acute distress and alert Orientation/consciousness: patient oriented x3 HENMT Mouth: Normal oral and palatal mucosa present and moist mucous membranes Eyes General: appearance normal, both eyes and all related structures Neck Neck: Yes full ROM and Yes no lymphadenopathy Thyroid: Thyroid normal Chest Chest palpation & inspection: normal inspection of the chest Resp Effort & Inspection: normal respiratory effort and able to speak in complete sentences Auscultation: clear to auscultation bilaterally Cardio Jugular venous distension: no JVD Rate: regular rate Rhythm: regular rhythm Heart sounds: S1 normal heart sound present and S2 normal heart sound present GI Inspection: Yes normal to inspection Palpation (GI): Soft to palpation Auscultation: normal bowel sounds General: Yes no CVA tenderness Male General Exam: Yes normal external exam Back/Spine/Pelvis Back: no CVA tenderness and No back tenderness Skin General skin exam: no rashes or lesions noted Neuro General: patient oriented x3, gait normal, moves all extremities, no focal motor deficits and CN's II-XI intact bilaterally Cranial nerves: Yes Normal hearing present Gait exam (Neuro): Normal gait present Motor exam (neuro): 5/5 motor strength present throughout Sensory Exam: No Sensory deficit (Neuro) Extrem General: Yes normal to inspection, Yes full ROM, Yes no pedal edema and Yes normal gait Psych Appearance: grossly normal and well kempt Mental Status: mental status grossly normal Speech and movement: Normal speech and movement present Affect: normal affect Attitude: cooperative Thought process: Normal thought process present Results AMB Hemoglobin A1c AMB Hemoglobin A1c Cancelled % Last Edit by Humera Paige CMA on 03/26/22 11:46 AMB Hemoglobin A1c previously reported as 7.3 Humera Paige 03/26/22 11:[address] Blakely pt had his A1C done by Dr. Magana on 01/22/2022, which was 7.7. Results Reviewed Results Reviewed: Laboratory Last Values Hgb A1c (Clinic) Cancelled 03/26/22 11:14 ENTERED: 03/23/22-1016 [facility]: ORDERED: CBC Auto Diff Test Result Flag Reference Site WBC 9.2 4.8-10.8 X10*3/uL RBC 4.47 L 4.60-5.80 X10*6/uL HGB 13.6 L 14.0-18.0 g/dl HCT 40.4 L 42.0-52.0 % MCV 90.4 80.0-98.0 fL MCH 30.4 27.0-33.0 pg MCHC 33.7 31.0-36.0 g/dl RDW 13.4 11.0-16.0 % PLT 251 160-400 X10*3/uL MPV 11.7 9.4-12.4 fL Neut Pct Auto 66.6 45-73 % ImGran Pct Auto 0.4 0.0-0.4 % Lymp Pct Auto 21.8 20-40 % Dougherty Pct Auto 9.5 2-11 % Eos Pct Auto 1.3 0-4 % Baso Pct Auto 0.4 0-2 % NRBC Pct Auto 0.0 0.0-0.2 /100WBC ANC Neut Abs # 6.1 2.0-8.3 x10*3/uL ImGran Abs Auto 0.04 H 0.00-0.03 X10*3/uL Lymph Abs Auto 2.0 1.2-4.9 X10*3/uL Dougherty Abs Auto 0.9 0.1-1.2 X10*3/uL Eos Abs Auto 0.1 0.0-0.4 X10*3/uL Baso Abs Auto 0.0 0.0-0.2 X10*3/uL NRBC Abs Auto 0.000 0.0-0.012 X10*3/uL ENTERED: 03/23/22-[address] [facility] [address]: ORDERED: Lipid Panel Test Result Flag Reference Site Triglyceride 58 mg/dL Desirable Triglyceride: less than 150 mg/dL Borderline High Triglyceride 150-199 mg/dL High Triglyceride: 200-499 mg/dL Very High Triglyceride: greater than or equal to 5OO mg/dL Chol 188 mg/dL Desirable Cholesterol: less than 200 mg/dL Borderline High Cholesterol: 200-239 mg/dL High Cholesterol: greater than 239 mg/dL LDL Calculated 87 mg/dl Desirable LDL: less than 100 mg/dL Near Optimal/Above Optimal LDL: 110-129 mg/dL Borderline High LDL: 130-159 mg/dL High LDL: 160-189 mg/dL Very High LDL: greater than or equal to 190 mg/dL HDL 90 # mg/dL Desirable HDL: greater than 40 mg/dL ENTERED: 02/26/22-[address] [facility] [address]: Cortney Blakely MD ORDERED: CMP Test Result Flag Reference Site Sodium 140 135-145 mmol/L Potassium 4.0 3.3-5.1 mmol/L CL 102 96-108 mmol/L CO2 29 22-29 mmol/L Gap 13 12-20 BUN 15 9-16 mg/dL Creat 0.97 0.5-1.4 mg/dL EGFR > 60 NOTE: For -[place] individuals, multiply the result by 1.210. Chronic Kidney Disease: Estimated GFR < 60 mL/min/1.73m2 Severe Kidney Disease: Estimated GFR < 15 mL/min/1.73m2 Glucose, Harman 197 H 60-115 mg/dL CA 9.9 8.4-10.2 mg/dL Total Bili 0.8 0.0-1.0 mg/dL AST (GOT) 23 5-37 U/L ALT (GPT) 25 0-40 U/L Protein, Total 6.9 6.5-8.0 g/dL Alb 4.3 3.5-5.0 g/dL Alk Phos 71 39-117 U/L Assessment and Plan Assessment & Plan (1) Tubular adenoma: Code(s): D36.9 - Benign neoplasm, unspecified site Plan: Followed by Dr. Mejía, last colonoscopy was in 2021, to be repeated again in 2026 (2) Essential hypertension: Code(s): I10 - Essential (primary) hypertension Plan: Blood pressure goal is less than 130/80. Systolic blood pressure slightly elevated on this visit, will continue to monitor, continue with amlodipine and lisinopril at the same dose. Reinforced importance of following a low sodium diet, getting regular exercise, and lowering stress levels. (3) Type 1 diabetes mellitus with background retinopathy: Code(s): E10.3299 - Type 1 diabetes mellitus with mild nonproliferative diabetic retinopathy without macular edema, unspecified eye Plan: Followed at [facility] by Dr. Dill. Last seen January 2022 with labs ordered including hemoglobin A1c with results unavailable to me at present time. His currently on Lantus and NovoLog pen. Up-to-date with his diabetes retinopathy screening. Reminded to get his COVID booster, Prevnar 20 and shingles vaccination and to get yearly flu shots (4) Dyslipidemia: Code(s): E78.5 - Hyperlipidemia, unspecified Plan: Reviewed recent fasting lipid profile with patient with levels within normal limits continue with simvastatin 20 mg daily , in addition to adherence to low-cholesterol diet and regular exercise, at least 30 minutes 3 to 4 times a week. Advised patient to make healthy food choices, eat more fruits, vegetables, whole grains, wild caught fish and low-fat dairy. Limit amount of meat and fried or fatty food products, as well as processed foods and fast foods. 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 - Encounter for general adult medical examination with abnormal findings Plan: Reviewed recent fasting labs. Recommended dental visit every 6 months and regular yearly eye exams. Take adequate calcium in diet and vitamin-D 3 at 2000 IU per cap once a day, in addition to weight-bearing exercises to help maintain good muscle tone and weight control. Instructed to do self-testicular exam to check for any mass. Up-to-date with his screening colonoscopy to have a repeat done again in 2026. Reminded to get his COVID booster, gets yearly flu shots, get his Prevnar 20 vaccination for prevention of pneumonia and recommended to get shingles vaccination (8) Advanced directives, counseling/discussion: Code(s): Z71.89 - Other specified counseling Plan: Initiated the conversation about Advanced Directives. Advanced Directives help patients prepare for current and future decisions about their medical treatment and place of care. Discussed with patient that it is a process where a patients current condition and prognosis are reviewed, their wishes for information regarding their illness are elicited, and likely medical dilemmas are presented and options discussed. Healthcare proxy form and MOLST form completed today. 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 Advanced directives, counseling/discussion Z. Normocytic normochromic anemia D64.9 Additional Codes LESVIA-7 Assessment Billing - LESVIA-7 Assessment Tool: LESVIA-7 Assessment 77985 ([id number])
[2022-03-26 11:15] VITALS: BP 140/66; PULSE 71; O2SAT 100; BMI 25.2
== END 2022-03-26 12:32 | disposition home or self-care (01) ==
LOC: HO.HMGC 10:56
PROVIDERS: PCP Internal Medicine; Visit Provider Internal Medicine
DX: Z00.01 Encounter for general adult medical examination with abnormal findings (principal); I10 Essential (primary) hypertension; E10.3299 Type 1 diabetes mellitus with mild nonproliferative diabetic retinopathy without macular edema, unspecified eye; M06.00 Rheumatoid arthritis without rheumatoid factor, unspecified site; Z79.899 Other long term (current) drug therapy; D36.9 Benign neoplasm, unspecified site; E78.5 Hyperlipidemia, unspecified; Z71.89 Other specified counseling; D64.9 Anemia, unspecified
CPT/HCPCS: 83036; 99397

== ENCOUNTER → 2022-04-08 10:24 | Outpatient (BNVA) | payer MEDICARE, MEDICAID, SELFPAY | PROVIDERS: PCP Internal Medicine; Visit Provider Nurse Practitioner Family | DX: M06.00 Rheumatoid arthritis without rheumatoid factor, unspecified site (principal); M19.91 Primary osteoarthritis, unspecified site; R22.41 Localized swelling, mass and lump, right lower limb; Z79.899 Other long term (current) drug therapy | CPT/HCPCS: 99212 ==

== ENCOUNTER 2022-05-19 11:08 | Outpatient (REF) | payer MEDICARE, MEDICAID, SELFPAY ==
[2022-05-19 13:53] LABS: MANUAL DIFF FLAG NO
[2022-05-19 13:59] LABS: Basophils Percent Auto 0.6 % (0-2); Eosinophils Absolute Auto 0.1 X10*3/uL (0.0-0.4); Eosinophils Percent Auto 1.5 % (0-4); Hematocrit 39.2 % (42.0-52.0); Hemoglobin 13.2 g/dl (14.0-18.0); Imm Gran Abs Auto 0.02 X10*3/uL (0.00-0.03); Imm Gran Pct Auto 0.3 % (0.0-0.4); Lymphocytes Absolute Auto 2.6 X10*3/uL (1.2-4.9); Lymphocytes Percent Auto 38.6 % (20-40); Mean Corpuscular HGB Conc 33.7 g/dl (31.0-36.0); Mean Corpuscular Hemoglobin 30.3 pg (27.0-33.0); Mean Corpuscular Volume 89.9 fL (80.0-98.0); Mean Platelet Volume 11.6 fL (9.4-12.4); Monocytes Absolute Auto 0.6 X10*3/uL (0.1-1.2); Monocytes Percent Auto 9.1 % (2-11); Neutrophils Absolute Auto 3.4 x10*3/uL (2.0-8.3); Neutrophils Percent Auto 49.9 % (45-73); Platelet Count 245 X10*3/uL (160-400); Red Blood Count 4.36 X10*6/uL (4.60-5.80); Red Cell Distribution Width 13.9 % (11.0-16.0); White Blood Count 6.7 X10*3/uL (4.8-10.8)
[2022-05-19 14:20] LABS: Alanine Aminotransferase 23 U/L (0-40); Aspartate Amino Transferase 27 U/L (5-37); C Reactive Protein < 0.10 mg/dL (< or = 0.50); Estimated Glomerular Filt Rate > 60
[2022-05-19 14:36] LABS: Erythrocyte Sedimentation Rate 3 MM/HR (0-15)
== END 2022-05-19 11:09 | disposition home or self-care (01) ==
LOC: HO.HMGCLDS 11:08
PROVIDERS: PCP Internal Medicine; Visit Provider Nurse Practitioner Family
DX: M06.00 Rheumatoid arthritis without rheumatoid factor, unspecified site (principal); Z79.899 Other long term (current) drug therapy
CPT/HCPCS: 36415; 82565; 84450; 84460; 85025; 85652; 86140

== ENCOUNTER 2022-07-13 11:26 | Outpatient (REF) | payer MEDICARE, MEDICAID, SELFPAY ==
--- NOTE | ~2022-07-13 | XR_ITS ---
EXAMINATION: XR SACROILIAC JOINTS CLINICAL INFORMATION: Sacrococcygeal disorders. COMPARISON: None available. TECHNIQUE: 3 views of the sacroiliac joints FINDINGS: The SI joints are symmetrical. No bony fracture or dislocation seen. No bony erosive changes. The soft tissues are normal. Both hip joint spaces preserved. No bony erosive changes. The soft tissues are normal. XR/XR sacroiliac joint min 3V IMPRESSION: Unremarkable SI joint and hip joint space.
[2022-07-13 14:31] LABS: Alanine Aminotransferase 23 U/L (0-40); Aspartate Amino Transferase 26 U/L (5-37); Cholesterol 192 mg/dL; HDL Cholesterol 78 mg/dL; LDL Cholesterol Calculated 104 mg/dl; Triglycerides 53 mg/dL
== END 2022-07-13 11:27 | disposition home or self-care (01) ==
LOC: HO.HMGCX 11:26
PROVIDERS: PCP Internal Medicine; Visit Provider Internal Medicine
DX: M53.3 Sacrococcygeal disorders, not elsewhere classified (principal); E78.5 Hyperlipidemia, unspecified
CPT/HCPCS: 36415; 72202; 80061; 84450; 84460

== ENCOUNTER 2022-08-04 10:49 | Outpatient (RCR) | payer MEDICARE, MEDICAID, SELFPAY ==
--- NOTE | 2022-08-04 12:14 | MHC.PT.EP ---
[facility] [place] Office [place] Office [place] Office [address] Chino [address] [phone] F: [phone] F: [phone] F: [phone] F: [phone] Physical Therapy Plan of Care Date of Evaluation: Date of Surgery: Diagnosis: This is a 71 male presenting to skilled PT with a script for sacrococcygeal disorders Assessment: This is a 71 male presenting to skilled PT with a script for sacrococcygeal disorders. Pain has been ongoing for about a month when he was laying on his back putting on a trailer hitch. He did not have any pain while doing this or after however the next morning it increased. He was loading and unloading pellets for his stove. He waited 10 days and then went to his PCP. He was given muscle relaxers and has been taking ibuprofen. Pain is located low back, L side and is achy. This can radiate laterally and medially at the thigh and lower leg, pain is achy. Pain is constant. Denies numbness or tingling. Assessment reveals pain that ranges from 4-8/10. Patient demos decreased lumbar, thoracic and hip ROM, strength of gluts, TTP at piriformis and impaired function with rolling in bed, transfers and squatting. Based on functional limitations, impaired QOL and decreased pain tolerance patient is a good candidate for skilled PT 2x/wk for 4wks. Frequency and Duration: The patient will be seen 2x/wk for 4wks Short Term Goals: I in HEP Demo proper squatting and lifting techniques Director Surgical Goals: Improve pain to no more than 2/10 at the worst Report at least 50% improvement in QOL Demo at least 1 grade improvement in glut strength Treatment Plan: Modalities to reduce pain, spasms and effusion. Manual therapy to restore motion and function. Therapeutic exercise to improve strength and flexibility. Neuromuscular re-education for posture and balance. Therapeutic activities to return to functional activities of daily living. Electronically signed by: Ml Street PT Please sign and return to therapist. Thank you for your referral.
--- NOTE | 2022-08-31 13:18 | MHC.PT.DC ---
[facility] [place] Office [place] Office [place] Office [address] Rosie Chino [address] [phone] F: [phone] F: [phone] F: [phone] F: [phone] Physical Therapy Discharge Report Diagnosis: This is a 71 male presenting to skilled PT with a script for sacrococcygeal disorders Date of Surgery: Date of Evaluation: 08/04/22 Date of Discharge: Treatments to Date: 1 Cancellations to Date: 0 No Shows to Date: 0 Discharge Status: Achieved Goals Improved Function Independent with HEP Patient Elected to Stop Discharge Summary: This is a 71 male presenting to skilled PT with a script for sacrococcygeal disorders. Pain has been ongoing for about a month when he was laying on his back putting on a trailer hitch. He did not have any pain while doing this or after however the next morning it increased. He was loading and unloading pellets for his stove. He waited 10 days and then went to his PCP. He was given muscle relaxers and has been taking ibuprofen. Pain is located low back, L side and is achy. This can radiate laterally and medially at the thigh and lower leg, pain is achy. Pain is constant. Denies numbness or tingling. Assessment reveals pain that ranges from 4-8/10. Patient demos decreased lumbar, thoracic and hip ROM, strength of gluts, TTP at piriformis and impaired function with rolling in bed, transfers and squatting. Based on functional limitations, impaired QOL and decreased pain tolerance patient is a good candidate for skilled PT 2x/wk for 4wks however patient called and cancelled follow ups reporting improved pain with HEP alone. Electronically signed by: Ml tSreet PT Please sign and return to therapist. Thank you for your referral.
== END 2022-08-31 13:18 | disposition home or self-care (01) ==
LOC: HO.PTCHIC 10:49
PROVIDERS: PCP Internal Medicine; Visit Provider Internal Medicine
DX: M53.3 Sacrococcygeal disorders, not elsewhere classified (principal)
CPT/HCPCS: 97110; 97162

== ENCOUNTER → 2022-09-02 11:31 | Outpatient (BNVA) | payer MEDICARE, MEDICAID, SELFPAY | PROVIDERS: PCP Internal Medicine; Visit Provider Nurse Practitioner Family ==

== ENCOUNTER 2022-09-02 12:30 | Outpatient (REF) | payer MEDICARE, MEDICAID, SELFPAY ==
[2022-09-02 13:36] LABS: MANUAL DIFF FLAG NO
[2022-09-02 13:45] LABS: Basophils Percent Auto 0.5 % (0-2); Eosinophils Absolute Auto 0.1 X10*3/uL (0.0-0.4); Hematocrit 37.4 % (42.0-52.0); Hemoglobin 12.6 g/dl (14.0-18.0); Imm Gran Abs Auto 0.02 X10*3/uL (0.00-0.03); Imm Gran Pct Auto 0.3 % (0.0-0.4); Lymphocytes Absolute Auto 2.4 X10*3/uL (1.2-4.9); Lymphocytes Percent Auto 30.9 % (20-40); Mean Corpuscular HGB Conc 33.7 g/dl (31.0-36.0); Mean Corpuscular Hemoglobin 30.5 pg (27.0-33.0); Mean Corpuscular Volume 90.6 fL (80.0-98.0); Mean Platelet Volume 11.3 fL (9.4-12.4); Monocytes Absolute Auto 0.5 X10*3/uL (0.1-1.2); Monocytes Percent Auto 6.9 % (2-11); Neutrophils Absolute Auto 4.8 x10*3/uL (2.0-8.3); Neutrophils Percent Auto 60.4 % (45-73); Platelet Count 267 X10*3/uL (160-400); Red Blood Count 4.13 X10*6/uL (4.60-5.80); White Blood Count 7.9 X10*3/uL (4.8-10.8)
[2022-09-02 14:34] LABS: Erythrocyte Sedimentation Rate 4 MM/HR (0-15)
[2022-09-02 15:30] LABS: Alanine Aminotransferase 28 U/L (0-40); Aspartate Amino Transferase 27 U/L (5-37); C Reactive Protein < 0.10 mg/dL (< or = 0.50); Estimated Glomerular Filt Rate > 60
== END 2022-09-02 12:31 | disposition home or self-care (01) ==
LOC: HO.10HDL 12:30
PROVIDERS: Visit Provider Nurse Practitioner Family
DX: M06.00 Rheumatoid arthritis without rheumatoid factor, unspecified site (principal); M19.90 Unspecified osteoarthritis, unspecified site; R22.41 Localized swelling, mass and lump, right lower limb; Z79.899 Other long term (current) drug therapy
CPT/HCPCS: 36415; 82565; 84450; 84460; 85025; 85652; 86140; 99212

== ENCOUNTER 2023-01-25 11:22 | Outpatient (REF) | payer MEDICARE, MEDICAID, SELFPAY ==
[2023-01-25 13:09] LABS: MANUAL DIFF FLAG NO
[2023-01-25 13:26] LABS: Basophils Percent Auto 0.6 % (0-2); Eosinophils Absolute Auto 0.2 X10*3/uL (0.0-0.4); Eosinophils Percent Auto 2.1 % (0-4); Hematocrit 39.6 % (42.0-52.0); Hemoglobin 13.4 g/dl (14.0-18.0); Imm Gran Abs Auto 0.01 X10*3/uL (0.00-0.03); Imm Gran Pct Auto 0.1 % (0.0-0.4); Lymphocytes Absolute Auto 2.4 X10*3/uL (1.2-4.9); Lymphocytes Percent Auto 32.3 % (20-40); Mean Corpuscular HGB Conc 33.8 g/dl (31.0-36.0); Mean Corpuscular Hemoglobin 31.1 pg (27.0-33.0); Mean Corpuscular Volume 91.9 fL (80.0-98.0); Mean Platelet Volume 11.6 fL (9.4-12.4); Monocytes Absolute Auto 0.7 X10*3/uL (0.1-1.2); Monocytes Percent Auto 9.5 % (2-11); Neutrophils Percent Auto 55.4 % (45-73); Platelet Count 265 X10*3/uL (160-400); Red Blood Count 4.31 X10*6/uL (4.60-5.80); White Blood Count 7.3 X10*3/uL (4.8-10.8)
[2023-01-25 13:49] LABS: Alanine Aminotransferase 21 U/L (0-40); Aspartate Amino Transferase 22 U/L (5-37); C Reactive Protein 0.19 mg/dL (< or = 0.50); Estimated Glomerular Filt Rate > 60
[2023-01-25 14:09] LABS: Erythrocyte Sedimentation Rate 4 MM/HR (0-15)
== END 2023-01-25 11:23 | disposition home or self-care (01) ==
LOC: HO.HMGCLDS 11:22
PROVIDERS: PCP Internal Medicine; Visit Provider Nurse Practitioner Family
DX: M06.00 Rheumatoid arthritis without rheumatoid factor, unspecified site (principal); Z79.899 Other long term (current) drug therapy
CPT/HCPCS: 36415; 82565; 84450; 84460; 85025; 85652; 86140

== ENCOUNTER 2023-01-27 12:03 | Outpatient (AMB) | payer MEDICARE, MEDICAID, SELFPAY ==
--- NOTE | 2023-01-27 12:04 | MHC.OFFVIS ---
Intake Vital Signs 01/27/23 12:05 Height 5 ft 7 in Weight 164 lb 14.492 oz BMI 25.8 BP 122/64 Blood Pressure Location Rt brachial Position Sitting Pulse 63 Pulse Source Pulse Oximeter Temp 97.4 F Temp Source Skin Pulse Oximetry (%) 98 Intake Visit Reasons: seronegative RA Intake Note: Patient presents today to follow up on seronegative RA. Last seen- 09/02/22 by Brunilda. Currently on MTX 6 tabs weekly. 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 Accompanied by: Self / Same As Patient Allergies No Known Allergies Allergy (Verified 01/27/23 12:09) Medication List - Last Reconciled 01/27/23 by Adan Smith MD amlodipine 5 mg PO DAILY aspirin (Adult Low Dose Aspirin) 81 mg PO DAILY calcium carbonate-vitamin D3 600 mg-10 mcg (400 unit) (Calcium 600 + D(3)) 1 tab PO DAILY folic acid 1 mg PO DAILY insulin aspart U-100 (Novolog FlexPen U-100 Insulin aspart) 5 units subcut DIRECTED insulin glargine (Lantus U-100 Insulin) 11.5 units subcut DIRECTED insulin syringe-needle U-100 As directed lisinopril 20 mg (2 x 10 mg) PO DAILY methotrexate sodium 15 mg (6 x 2.5 mg) PO QWEEK xrncynir-cco-IF-lycopen-lutein 0.4 mg-300 mcg- 250 mcg (Centrum Silver) 1 tab PO DAILY simvastatin 20 mg PO DAILY HPI HPI Comments History of Present Illness Details This is a 72-year-old male with seronegative RA who presents for follow-up Last seen by Alicja Rivers 08/2022 On methotrexate 6 tabs once weekly and folic acid daily Patient states that he feels well overall. 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 Son No problems noted. Son No problems noted. Brother No problems noted. Brother No problems noted. Brother No problems noted. Brother No problems noted. Social History Housing: House Alcohol intake: current Alcohol intake frequency: a few times a month Alcohol type: beer Patient Tobacco Use Status: Never used Tobacco e-Cigarette/Vaping Use: Never Used Second Hand Smoke Exposure: No service: No Current occupational status: retired Cognitive needs: No Hearing needs: No Vision needs: Yes Review of Systems Musc Denies arthralgias and Denies stiffness Physical Exam Vital Signs: Last Vital Signs Temp 97.4 F 01/27/23 12:05 Pulse 63 01/27/23 12:05 BP 122/64 01/27/23 12:05 Pulse Ox 98 01/27/23 12:05 BMI result Body Mass Index 25.8 Const General: cooperative, healthy appearing and comfortable Nutritional Appearance: average body habitus Orientation/consciousness: patient oriented x3 Limitations: no limitations HEENT Head: Yes normocephalic and Yes atraumatic Mouth: moist mucous membranes Resp Effort & Inspection: normal respiratory effort and able to speak in complete sentences Auscultation: clear to auscultation bilaterally Cardio Rate: regular rate Rhythm: regular rhythm Neuro General: patient oriented x3 Extrem Other: No active synovitis Mild osteoarthritic changes of both hands Bilateral diabetic cheiroarthropathy both hands Normal nailfold capillaroscopy Assessment & Plan Assessment & Plan (1) Seronegative rheumatoid arthritis: Comment: -ve RF -ve CCP dx 2015 MR hand showing synovitis and tenosynovitis on MTX 17.5 mg since 2017 advanced to 20 mg due to synovitis 2020, reduced to 15 mg 09/2021 Code(s): M06.00 - Rheumatoid arthritis without rheumatoid factor, unspecified site Plan: This is a 72-year-old male with seronegative RA returns for follow-up. He is in remission on methotrexate 15 mg weekly for for more than 1 year Reduce methotrexate to 12.5 mg weekly plus folic acid 1 mg daily Labs in 3 months and in 6 months before next visit (2) Diabetic cheirarthropathy: Code(s): E11.618 - Type 2 diabetes mellitus with other diabetic arthropathy Plan: Classic diabetic cheiroarthropathy on exam. Not symptomatic per patient (3) ferry terminal supervisor methotrexate user: Code(s): Z79.899 - Other watermelon inspector (current) drug therapy Plan: Monitor safety labs (4) Immunization counseling: Code(s): Z71.85 - Encounter for immunization safety counseling Plan: Discussed ACR vaccination guidelines for adults with autoimmune rheumatic disease on immune suppression. Advised patient to get the new COVID booster and flu vaccines. Can be done the same day. Hold methotrexate for 1-2 weeks after vaccination Plan I spent 26 minutes reviewing patient's chart, evaluating patient, ordering diagnostic workup, counseling patient and documenting in the chart Orders: Orders Erythrocyte Sedimentation Rate 6 Months Z79.899 - Other [place] [facility] drug therapy Complete Blood Count Auto Diff 3 Months Z79.899 - [facility] [place] [facility] [place] drug therapy C Reactive Protein 3 Months Z79.899 - [facility] [place] [facility] drug therapy Erythrocyte Sedimentation Rate 3 Months Z79.899 - Other watermelon inspector (current) drug therapy Hepatitis A,B,C Profile 3 Months Z79.899 - Other [place] [facility]current[facility] drug therapy Complete Blood Count Auto Diff 6 Months Z79.899 - Other watermelon inspector (current) drug therapy Comprehensive Met. Panel 6 Months Z79.899 - [facility] [place] (current) drug therapy C Reactive Protein 6 Months Z79.899 - Other [place] [facility] (current[facility] drug therapy Comprehensive Met. Panel 3 Months Z79.899 - Other watermelon inspector (current) drug therapy Coding Level of Care Code Est Pt Level 4 (65453) Diagnoses Seronegative rheumatoid arthritis M06.00 Diabetic cheirarthropathy E11.618 intermediate methotrexate user Z79.899 Immunization counseling Z71.85
[2023-01-27 12:05] VITALS: BP 122/64; PULSE 63; TEMP 36.3; O2SAT 98; BMI 25.8
== END 2023-01-27 12:31 | disposition home or self-care (01) ==
PROVIDERS: PCP Internal Medicine; Visit Provider Student in an Organized Health Care Education/Training Program
DX: M06.00 Rheumatoid arthritis without rheumatoid factor, unspecified site (principal); E11.618 Type 2 diabetes mellitus with other diabetic arthropathy; Z79.899 Other long term (current) drug therapy; Z71.85 Encounter for immunization safety counseling
CPT/HCPCS: 99214

== ENCOUNTER → 2023-01-27 12:03 | Outpatient (BNVA) | payer MEDICARE, MEDICAID, SELFPAY | PROVIDERS: PCP Internal Medicine; Visit Provider Student in an Organized Health Care Education/Training Program | DX: M06.00 Rheumatoid arthritis without rheumatoid factor, unspecified site (principal); E11.618 Type 2 diabetes mellitus with other diabetic arthropathy; Z79.899 Other long term (current) drug therapy; Z71.85 Encounter for immunization safety counseling | CPT/HCPCS: 99212 ==

== ENCOUNTER 2023-03-29 09:48 | Outpatient (REF) | payer MEDICARE, MEDICAID, SELFPAY ==
[2023-03-29 13:08] LABS: MANUAL DIFF FLAG NO
[2023-03-29 13:28] LABS: Basophils Percent Auto 0.5 % (0-2); Eosinophils Absolute Auto 0.2 X10*3/uL (0.0-0.4); Eosinophils Percent Auto 2.4 % (0-4); Hematocrit 40.8 % (42.0-52.0); Hemoglobin 13.3 g/dl (14.0-18.0); Imm Gran Abs Auto 0.01 X10*3/uL (0.00-0.03); Imm Gran Pct Auto 0.2 % (0.0-0.4); Lymphocytes Absolute Auto 2.2 X10*3/uL (1.2-4.9); Lymphocytes Percent Auto 35.9 % (20-40); Mean Corpuscular HGB Conc 32.6 g/dl (31.0-36.0); Mean Corpuscular Hemoglobin 29.7 pg (27.0-33.0); Mean Corpuscular Volume 91.1 fL (80.0-98.0); Mean Platelet Volume 11.8 fL (9.4-12.4); Monocytes Absolute Auto 0.5 X10*3/uL (0.1-1.2); Monocytes Percent Auto 7.5 % (2-11); Neutrophils Absolute Auto 3.3 x10*3/uL (2.0-8.3); Neutrophils Percent Auto 53.5 % (45-73); Platelet Count 265 X10*3/uL (160-400); Red Blood Count 4.48 X10*6/uL (4.60-5.80); Red Cell Distribution Width 14.1 % (11.0-16.0); White Blood Count 6.2 X10*3/uL (4.8-10.8)
[2023-03-29 13:38] LABS: Alanine Aminotransferase 24 U/L (0-40); Albumin Level 4.3 g/dL (3.5-5.0); Alkaline Phosphatase 80 U/L (39-117); Anion Gap 15 (12-20); Aspartate Amino Transferase 23 U/L (5-37); Bilirubin Total 0.6 mg/dL (0.0-1.0); Blood Urea Nitrogen 16 mg/dL (9-16); C Reactive Protein 0.16 mg/dL (< or = 0.50); Calcium 9.7 mg/dL (8.4-10.2); Carbon Dioxide 27 mmol/L (22-29); Chloride 106 mmol/L (96-108); Estimated Glomerular Filt Rate > 60; Glucose Random 243 mg/dL (60-115); Potassium 4.5 mmol/L (3.3-5.1); Sodium 143 mmol/L (135-145); Total Protein 7.4 g/dL (6.5-8.0)
[2023-03-29 14:37] LABS: Erythrocyte Sedimentation Rate 6 MM/HR (0-15)
[2023-03-30 04:48] LABS: HBS Num1 0.59 mIU/mL (0-7.99); HBc Num1 0.06 S/CO (0.00-0.79); HBsAGNum1 0.27 S/CO (0.00-0.99); Hepatitis A Antibody IgM 0.13 Index (0-0.79); Hepatitis B Core Antibody Nonreactive (Nonreactive); Hepatitis B Surface Antigen Negative (Negative); ~HepC Num1 0.09 S/CO (0.00-0.79); ~Hepatitis A Antibody IgM Nonreactive (Nonreactive); ~Hepatitis B Surface Antibody NONREACTIVE (Nonreactive); ~Hepatitis C Antibody Nonreactive (Nonreactive)
== END 2023-03-29 09:49 | disposition home or self-care (01) ==
LOC: HO.HMGCLDS 09:48
PROVIDERS: PCP Internal Medicine; Visit Provider Student in an Organized Health Care Education/Training Program
DX: Z79.899 Other long term (current) drug therapy (principal)
CPT/HCPCS: 36415; 80053; 85025; 85652; 86140; 86704; 86706; 86709; 86803; 87340

== ENCOUNTER 2023-03-30 12:26 | Outpatient (AMB) | payer MEDICARE, MEDICAID, SELFPAY ==
--- NOTE | 2023-03-30 13:06 | A.OFFPC_ITS ---
Vital Signs 03/30/23 13:07 Height 5 ft 7 in Weight 169 lb 4 oz BMI 26.5 BP 136/68 Blood Pressure Location Rt brachial Position Sitting Pulse 60 Pulse Source Pulse Oximeter Pulse Oximetry (%) 98 Oxygen Delivery Method Room Air Intake Visit Reasons: Physical Intake Note: Pt is here for his Annual PE Allergies No Known Allergies Allergy (Verified 03/30/23 13:24) Medication List - Last Reconciled 03/30/23 by Cortney Blakely MD amlodipine 5 mg PO DAILY aspirin (Adult Low Dose Aspirin) 81 mg PO DAILY calcium carbonate-vitamin D3 600 mg-10 mcg (400 unit) (Calcium 600 + D(3)) 1 tab PO DAILY folic acid 1 mg PO DAILY insulin aspart U-100 (Novolog FlexPen U-100 Insulin aspart) 5 units subcut DIRECTED insulin glargine (Lantus U-100 Insulin) 11.5 units subcut DIRECTED insulin syringe-needle U-100 As directed lisinopril 20 mg (2 x 10 mg) PO DAILY methotrexate sodium 12.5 mg (5 x 2.5 mg) PO QWEEK kybxlmff-cmd-YT-lycopen-lutein 0.4 mg-300 mcg- 250 mcg (Centrum Silver) 1 tab PO DAILY simvastatin 20 mg PO DAILY Tobacco use date assessed: 03/30/23 Fall risk assessment: No Falls in past year Last assessed Fall Risk: 03/30/23 Dental Screening Dental Screen Date: 03/30/23 Did you have a dental visit in the last 12 months?: Yes Did you have a dental problem in the last 6 months where you did not have access to dental care?: No Was dental information given to patient?: Patient has dentist HPI Physical HPI Details 72-year-old male here today for physical exam. 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 Sees Rheumatology at [facility] for hisrheumatoid arthritis currently on methotrexate . He has hypertension and dyslipidemia currently stable and controlled on present medication. 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 Son No problems noted. Son No problems noted. Brother No problems noted. Brother No problems noted. Brother No problems noted. Brother No problems noted. Social History Housing: House Alcohol intake: current Alcohol intake frequency: a few times a month Alcohol type: beer Patient Tobacco Use Status: Never used Tobacco e-Cigarette/Vaping Use: Never Used Second Hand Smoke Exposure: No service: No Current occupational status: retired Cognitive needs: No Hearing needs: No Vision needs: Yes Questionnaire PHQ-9 Over the last 2 weeks, how often have you been bothered by any of the following problems? 1. Little interest or pleasure in doing things: not at all 2. Feeling down, depressed, or hopeless: not at all 3. Trouble falling or staying asleep, or sleeping too much: not at all 4. Feeling tired or having little energy: not at all 5. Poor appetite or overeating: not at all 6. Feeling bad about yourself - or that you are a failure or have let yourself or your family down: not at all 7. Trouble concentrating on things, such as reading the newspaper or watching television: not at all 8. Moving or speaking so slowly that other people could have noticed. Or the opposite - being so fidgety or restless that you have been moving around a lot more than usual: not at all 9. Thoughts that you would be better off or of hurting yourself in some way: not at all Total score: 0 Depression Screening Interpretation: Negative Depression Screening Done: Yes 25927 - PHQ-9 Billing: Yes Source: Developed by Drs. Seferino Valdez, Mehreen Briceno, Obie Mcgee and colleagues, with an educational jad from [employer]. Thrive Questionnaire Date Thrive assessed: 03/30/23 I am a: Patient What is your living situation today?: I have a steady place to live Within the past 12 months, did the food you bought not last and you didn't have the money to get more?: Never true Within the past 12 months, did you worry whether your food would run out before you got money to buy more?: Never true Do you have trouble paying for medicines?: No Do you have trouble getting transportation to medical appointments?: No Do you have trouble paying your heating and electricity bill?: Yes Do you have trouble taking care of your child, family member or friend?: No Do you have trouble with day-to-day activities such as bathing, preparing meals, shopping, managing finances, etc.?: No Are you currently unemployed and looking for a job?: No Are you interested in more education?: Yes AUDIT C Alcohol Use Questionnaire (AUDIT-C) 1. How often do you have a drink containing alcohol?: 2-3 times a week 2. How many drinks containing alcohol do you have on a typical day when you are drinking?: 1 or 2 3. How often do you have six or more drinks on one occasion?: Never Total Score: 3 LESVIA-7 AMB Questionnaire LESVIA-7 Date LESVIA - 7 assessed: 03/30/23 Feeling nervous, anxious, or on edge: 0 = Not at all Not being able to stop or control worryin = Not at all Worrying too much about different things: 0 = Not at all Trouble relaxin = Not at all Being so restless that it is hard to sit still: 0 = Not at all Becoming easily annoyed or irritable: 0 = Not at all Feeling afraid as if something awful might happen: 0 = Not at all Total LESVIA-7 score (0-4 normal; 5-9 mild; 10-14 moderate; 15-21 severe): 0 Source: Developed by Drs. Seferino Valdez, Mehreen Briceno, Obie Mcgee and colleagues, with an educational jad from [employer]. LESVIA-7 Assessment Billing LESVIA-7 Assessment Tool: LESVIA-7 Assessment 15683 Review of Systems Const Denies body aches, Denies fatigue, Denies fever(s) and Denies lethargy Eyes Details: Goes to [facility] for his routine eye exam, currently up-to-date ENT Reports no additional complaints and Reports Normal hearing present Card Denies chest pain, Denies rapid heart rate, Denies irregular heart rhythm, Denies leg edema and Denies lightheadedness Resp Denies chest congestion, Denies cough and Denies pain with cough GI Denies abdominal pain, Denies melena, Denies hematochezia, Denies change in bowel habits and Denies heartburn Reports no additional complaints Musc Reports no additional complaints Skin/Breast Denies breast mass, Denies lesions and Denies rash Neuro Reports no additional complaints, Reports Normal hearing present and Denies Sensory deficit (Neuro) Psych Reports no additional complaints Endo Denies fatigue Stanley/Lymph Denies easy bleeding, Denies easy bruising and Denies lymphadenopathy Aller/Immun Reports no additional complaints Physical exam (Primary Care) Vital Signs: Last Vital Signs Pulse 60 03/30/23 13:07 BP 136/68 03/30/23 13:07 Pulse Ox 98 03/30/23 13:07 Oxygen Delivery Method Room Air 03/30/23 13:07 BMI result Body Mass Index 26.5 Tobacco/Smoking Status: Tobacco use Status Tobacco use date assessed 03/30/23 03/30/23 13:13 Patient Tobacco Use Status Never used Tobacco 03/30/23 13:06 e-Cigarette/Vaping Use Never Used 03/30/23 13:06 PHQ-9: PHQ-9 Score PHQ-9: Total score 0 03/30/23 13:45 Depression Screening Interpretation: Negative Thrive Assessment: Date of Thrive Assessment Date Thrive assessed 03/30/23 03/30/23 13:45 Const General: cooperative, no acute distress and alert Orientation/consciousness: patient oriented x3 HENMT Mouth: Normal oral and palatal mucosa present and moist mucous membranes Eyes General: appearance normal, both eyes and all related structures Neck Neck: Yes full ROM and Yes no lymphadenopathy Thyroid: Thyroid normal Chest Chest palpation & inspection: normal inspection of the chest Resp Effort & Inspection: normal respiratory effort and able to speak in complete sentences Auscultation: clear to auscultation bilaterally Cardio Jugular venous distension: no JVD Rate: regular rate Rhythm: regular rhythm Heart sounds: S1 normal heart sound present and S2 normal heart sound present GI Inspection: Yes normal to inspection Palpation (GI): Soft to palpation Auscultation: normal bowel sounds General: Yes no CVA tenderness Male General Exam: Yes normal external exam Back/Spine/Pelvis Back: no CVA tenderness and No back tenderness Skin General skin exam: no rashes or lesions noted Neuro General: patient oriented x3, gait normal, moves all extremities, no focal motor deficits and CN's II-XI intact bilaterally Cranial nerves: Yes Normal hearing present Gait exam (Neuro): Normal gait present Motor exam (neuro): 5/5 motor strength present throughout Sensory Exam: No Sensory deficit (Neuro) Extrem General: Yes normal to inspection, Yes full ROM, Yes no pedal edema and Yes normal gait Psych Appearance: grossly normal and well kempt Mental Status: mental status grossly normal Speech and movement: Normal speech and movement present Affect: normal affect Thought process: Normal thought process present Results Reviewed Results Reviewed: Name: Kevin Serrato Age/Sex: 72/M : 1950 Unit#: [id number] Attend Dr: Adan Smith MD Re03/29/23 Status: DEP REF Location: [facility] Disch: SPEC : [id number] LUCILA: 03/29/23-1006 STATUS: COMP REQ : [id number] RECD: 03/29/23-[address]: Adan Smith MD COMP: 03/29/23-1338 ENTERED: 03/29/23-[address]: Cortney Blakely MD ORDERED: CMP, C Reactive Prot Test Result Flag Reference Site Sodium 143 135-145 mmol/L Potassium 4.5 3.3-5.1 mmol/L CL 106 96-108 mmol/L CO2 27 22-29 mmol/L Gap 15 12-20 BUN 16 9-16 mg/dL Creat 0.96 0.5-1.4 mg/dL EGFR > 60 NOTE: For -Serbian individuals, multiply the result by 1.210. Chronic Kidney Disease: Estimated GFR < 60 mL/min/1.73m2 Severe Kidney Disease: Estimated GFR < 15 mL/min/1.73m2 Glucose, Random 243 H 60-115 mg/dL CA 9.7 8.4-10.2 mg/dL Total Bili 0.6 0.0-1.0 mg/dL AST (GOT) 23 5-37 U/L ALT (GPT) 24 0-40 U/L CRP 0.16 < or = 0.50 mg/dL Protein, Total 7.4 6.5-8.0 g/dL Alb 4.3 3.5-5.0 g/dL Alk Phos 80 39-117 U/L Assessment and Plan Assessment & Plan (1) Annual visit for general adult medical examination with abnormal findings: Code(s): Z00.01 - Encounter for general adult medical examination with abnormal findings Plan: Will check appropriate labs. Recommended dental visit every 6 months and regular eye exams, at least every year. Take adequate calcium in diet and vitamin-D 3 at 2000 IU per cap once a day, in addition to weight-bearing exercises to help maintain good muscle tone and weight control. Instructed to do self testicular exam to check for any mass. Colonoscopy screening up-to-date. Up-to-date with his flu shot, reminded to get his COVID booster, and his 2nd dose of shingles vaccine. 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 Rich. Goes to [facility] for his routine eye exam (3) Essential hypertension: Code(s): I10 - Essential (primary) hypertension Plan: Blood pressure at goal of less than 130/80. Continue with lisinopril 20 mg daily and amlodipine 5 mg once a day. Reinforced importance of following a low sodium diet, getting regular exercise, and lowering stress levels. (4) Tubular adenoma: Code(s): D36.9 - Benign neoplasm, unspecified site Plan: Up-to-date with his screening colonoscopy, last [address] Mejía (5) Seronegative rheumatoid arthritis: Comment: -ve RF -ve CCP dx 2015 MR hand showing synovitis and tenosynovitis on MTX 17.5 mg since 2017 advanced to 20 mg due to synovitis 2020, reduced to 15 mg 09/2021 Code(s): M06.00 - Rheumatoid arthritis without rheumatoid factor, unspecified site Plan: Followed by [facility] rheumatology currently on methotrexate (6) Normocytic normochromic anemia: Code(s): D64.9 - Anemia, unspecified (7) Dyslipidemia: Code(s): E78.5 - Hyperlipidemia, unspecified Plan: Fasting lipid panel ordered, in the meantime continue with 20 mg of simvastatin daily and adherence to low-cholesterol diet and getting regular exercise (8) Prostate cancer screening: Code(s): Z12.5 - Encounter for screening for malignant neoplasm of prostate Plan: PSA ordered Orders: Orders PSA,Total (Free>4and<10) 03/30/23 Z12.5 - Encounter for screening for malignant neoplasm of prostate, E78.5 - Hyperlipidemia, unspecified Lipid Panel 03/30/23 Z12.5 - Encounter for screening for malignant neoplasm of prostate, E78.5 - Hyperlipidemia, unspecified Coding Level of Care Code Est Pt Prev Care >65y(06083) Diagnoses Annual visit for general adult medical examination with abnormal findings Z00.01 Type 1 diabetes mellitus with background retinopathy E10.3299 Essential hypertension I10 Tubular adenoma D36.9 Seronegative rheumatoid arthritis M06.00 Normocytic normochromic anemia D64.9 Dyslipidemia E78.5 Prostate cancer screening Z12.5 Additional Codes LESVIA-7 Assessment Billing - LESVIA-7 Assessment Tool: LESVIA-7 Assessment 80246 ([id number])
[2023-03-30 13:07] VITALS: BP 136/68; PULSE 60; O2SAT 98; BMI 26.5
== END 2023-03-30 13:47 | disposition home or self-care (01) ==
LOC: HO.HMGC 12:26
PROVIDERS: PCP Internal Medicine; Visit Provider Internal Medicine
DX: Z00.00 Encounter for general adult medical examination without abnormal findings (principal); E10.3299 Type 1 diabetes mellitus with mild nonproliferative diabetic retinopathy without macular edema, unspecified eye; M06.00 Rheumatoid arthritis without rheumatoid factor, unspecified site; I10 Essential (primary) hypertension; Z12.5 Encounter for screening for malignant neoplasm of prostate; D36.9 Benign neoplasm, unspecified site; D64.9 Anemia, unspecified; E78.5 Hyperlipidemia, unspecified
CPT/HCPCS: 99397

== ENCOUNTER 2023-07-30 13:32 | Outpatient (REF) | payer MEDICARE, MEDICAID, SELFPAY ==
[2023-07-30 16:08] LABS: MANUAL DIFF FLAG NO
[2023-07-30 16:34] LABS: Basophils Percent Auto 0.3 % (0-2); Eosinophils Percent Auto 0.3 % (0-4); Hematocrit 38.3 % (42.0-52.0); Imm Gran Abs Auto 0.01 X10*3/uL (0.00-0.03); Imm Gran Pct Auto 0.1 % (0.0-0.4); Lymphocytes Absolute Auto 2.2 X10*3/uL (1.2-4.9); Lymphocytes Percent Auto 22.1 % (20-40); Mean Corpuscular HGB Conc 33.9 g/dl (31.0-36.0); Mean Corpuscular Hemoglobin 30.4 pg (27.0-33.0); Mean Corpuscular Volume 89.5 fL (80.0-98.0); Mean Platelet Volume 11.8 fL (9.4-12.4); Monocytes Absolute Auto 0.5 X10*3/uL (0.1-1.2); Monocytes Percent Auto 4.7 % (2-11); Neutrophils Absolute Auto 7.4 x10*3/uL (2.0-8.3); Neutrophils Percent Auto 72.5 % (45-73); Platelet Count 233 X10*3/uL (160-400); Red Blood Count 4.28 X10*6/uL (4.60-5.80); White Blood Count 10.1 X10*3/uL (4.8-10.8)
[2023-07-30 17:06] LABS: Erythrocyte Sedimentation Rate 3 MM/HR (0-15)
[2023-07-30 17:10] LABS: Alanine Aminotransferase 20 U/L (0-40); Albumin Level 4.3 g/dL (3.5-5.0); Alkaline Phosphatase 68 U/L (39-117); Anion Gap 11 (12-20); Aspartate Amino Transferase 23 U/L (5-37); Bilirubin Total 0.5 mg/dL (0.0-1.0); Blood Urea Nitrogen 13 mg/dL (9-16); Calcium 9.4 mg/dL (8.4-10.2); Carbon Dioxide 29 mmol/L (22-29); Chloride 103 mmol/L (96-108); Estimated Glomerular Filt Rate > 60; Glucose Random 300 mg/dL (60-115); Potassium 4.7 mmol/L (3.3-5.1); Sodium 138 mmol/L (135-145); Total Protein 6.9 g/dL (6.5-8.0)
== END 2023-07-30 13:33 | disposition home or self-care (01) ==
LOC: HO.HMGCLDS 13:32
PROVIDERS: PCP Internal Medicine; Visit Provider Student in an Organized Health Care Education/Training Program
DX: Z79.899 Other long term (current) drug therapy (principal)
CPT/HCPCS: 36415; 80053; 85025; 85652; 86140

== ENCOUNTER 2023-08-03 11:25 | Outpatient (AMB) | payer MEDICARE, MEDICAID, SELFPAY ==
--- NOTE | 2023-08-03 11:34 | MHC.OFFVIS ---
Vital Signs 08/03/23 11:35 Height 5 ft 7 in Weight 166 lb 3.657 oz BMI 26.0 BP 128/54 L Blood Pressure Location Rt brachial Position Sitting Pulse 59 Pulse Source Pulse Oximeter Pulse Oximetry (%) 98 Oxygen Delivery Method Room Air Intake Visit Reasons: RA Intake Note: Patient last seen 01/27/23 presents today for follow up and test results. 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 Accompanied by: Self / Same As Patient Allergies No Known Allergies Allergy (Verified 08/03/23 11:37) Medication List - Last Reconciled 08/03/23 by Adan Smith MD amlodipine 5 mg PO DAILY aspirin (Adult Low Dose Aspirin) 81 mg PO DAILY calcium carbonate-vitamin D3 600 mg-10 mcg (400 unit) (Calcium 600 + D(3)) 1 tab PO DAILY folic acid 1 mg PO DAILY insulin aspart U-100 (Novolog FlexPen U-100 Insulin aspart) 5 units subcut DIRECTED insulin glargine (Lantus U-100 Insulin) 11.5 units subcut DIRECTED insulin syringe-needle U-100 As directed lisinopril 20 mg (2 x 10 mg) PO DAILY methotrexate sodium 10 mg (4 x 2.5 mg) PO QWEEK [id number]-utp-GZ-lycopen-lutein 0.4 mg-300 mcg- 250 mcg (Centrum Silver) 1 tab PO DAILY simvastatin 20 mg PO DAILY HPI Comments Details: This is a 72-year-old male with seronegative RA who presents for follow-up Last seen 01/2023 On methotrexate 5 tabs weekly and folic acid 1 mg daily. Lowering methotrexate from 6 to 5 tabs weekly did not make any difference. He has no complaints today [facility] Medical History Sacroiliac joint pain Normocytic normochromic anemia Tubular adenoma of colon Essential hypertension Type 1 diabetes mellitus with background retinopathy Dyslipidemia Inflammatory arthritis Surgical History Hx of colonoscopy No pertinent past surgical history Family History Father CVD (cardiovascular disease) Diabetes mellitus Mother Arthritis Maternal Aunt Diabetes mellitus Paternal Aunt Diabetes mellitus Sister No problems noted. Son No problems noted. Son No problems noted. Brother No problems noted. Brother No problems noted. Brother No problems noted. Brother No problems noted. Social History Housing: House Alcohol intake: current Alcohol intake frequency: a few times a month Alcohol type: beer Patient Tobacco Use Status: Never used Tobacco e-Cigarette/Vaping Use: Never Used Second Hand Smoke Exposure: No service: No Current occupational status: retired Cognitive needs: No Hearing needs: No Vision needs: Yes Review of Systems Musc Denies arthralgias and Denies stiffness Physical Exam Vital Signs: Last Vital Signs Pulse 59 08/03/23 11:35 BP 128/54 L 08/03/23 11:35 Pulse Ox 98 08/03/23 11:35 Oxygen Delivery Method Room Air 08/03/23 11:35 BMI result Body Mass Index 26.0 Const General: cooperative, healthy appearing and comfortable Nutritional Appearance: average body habitus Orientation/consciousness: patient oriented x3 Limitations: no limitations HEENT Head: Yes normocephalic and Yes atraumatic Mouth: moist mucous membranes Resp Effort & Inspection: normal respiratory effort and able to speak in complete sentences Auscultation: clear to auscultation bilaterally Cardio Rate: regular rate Rhythm: regular rhythm Neuro General: patient oriented x3 Extrem Other: No active synovitis Mild osteoarthritic changes of both hands Bilateral diabetic cheiroarthropathy both hands Normal nailfold capillaroscopy Normal range of motion of both knees without pain Assessment & Plan Assessment & Plan (1) Seronegative rheumatoid arthritis: Comment: -ve RF -ve CCP dx 2015 MR hand showing synovitis and tenosynovitis on MTX 17.5 mg since 2017 advanced to 20 mg due to synovitis 2020, reduced to 15 mg 09/2021 Code(s): M06.00 - Rheumatoid arthritis without rheumatoid factor, unspecified site Category: Medical Plan: This is a 72-year-old male with seronegative RA returns for follow-up. He is in remission on methotrexate 12.5 mg weekly and folic acid 1 mg daily. Lowering methotrexate from 15 mg to 12.5 mg did not make a difference Lower methotrexate to 10 mg weekly. 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 Not symptomatic per patient (3) extermination inspector methotrexate user: Code(s): Z79.899 - Other detention (current) drug therapy Category: Medical Plan: Monitor safety labs Plan I spent 26 minutes reviewing patient's chart, evaluating patient, ordering diagnostic workup, counseling patient and documenting in the chart Orders: Orders Comprehensive Met. Panel 6 Months Z79.899 - Other extermination inspector (current) drug therapy C Reactive Protein 6 Months Z79.899 - Other detention (current) drug therapy Erythrocyte Sedimentation Rate 6 Months Z79.899 - Other detention (current) drug therapy Complete Blood Count Auto Diff 3 Months Z79.899 - Other extermination inspector (current) drug therapy Comprehensive Met. Panel 3 Months Z79.899 - Other detention (current) drug therapy C Reactive Protein 3 Months Z79.899 - Other detention (current) drug therapy Erythrocyte Sedimentation Rate 3 Months Z79.899 - Other detention (current) drug therapy Complete Blood Count Auto Diff 6 Months Z79.899 - Other detention (current) drug therapy Medications: Changed From methotrexate sodium 12.5 mg (5 x 2.5 mg) PO QWEEK 60 tabs 1RF M19.90 - Unspecified osteoarthritis, unspecified site To methotrexate sodium 10 mg (4 x 2.5 mg) PO QWEEK 48 tabs 0RF M19.90 - Unspecified osteoarthritis, unspecified site Refilled folic acid 1 mg PO DAILY 90 tabs 1RF Coding Level of Care Code Est Pt Level 4 (89736) Diagnoses Seronegative rheumatoid arthritis M06.00 Diabetic cheirarthropathy E11.618 extermination inspector methotrexate user Z79.899
[2023-08-03 11:35] VITALS: BP 128/54; PULSE 59; O2SAT 98; BMI 26.0
== END 2023-08-03 11:55 | disposition home or self-care (01) ==
PROVIDERS: PCP Internal Medicine; Visit Provider Student in an Organized Health Care Education/Training Program
DX: M06.00 Rheumatoid arthritis without rheumatoid factor, unspecified site (principal); E11.618 Type 2 diabetes mellitus with other diabetic arthropathy; Z79.899 Other long term (current) drug therapy
CPT/HCPCS: 99214

== ENCOUNTER → 2023-08-03 11:25 | Outpatient (BNVA) | payer MEDICARE, MEDICAID, SELFPAY | PROVIDERS: PCP Internal Medicine; Visit Provider Student in an Organized Health Care Education/Training Program | DX: M06.00 Rheumatoid arthritis without rheumatoid factor, unspecified site (principal); E11.618 Type 2 diabetes mellitus with other diabetic arthropathy; Z79.631 Long term (current) use of antimetabolite agent | CPT/HCPCS: 99212 ==

== ENCOUNTER 2023-10-26 12:53 | Outpatient (REF) | payer MEDICARE, MEDICAID, SELFPAY ==
[2023-10-26 16:02] LABS: MANUAL DIFF FLAG NO
[2023-10-26 16:05] LABS: Basophils Absolute Auto 0.1 X10*3/uL (0.0-0.2); Basophils Percent Auto 0.5 % (0-2); Eosinophils Absolute Auto 0.1 X10*3/uL (0.0-0.4); Eosinophils Percent Auto 0.7 % (0-4); Hematocrit 39.1 % (42.0-52.0); Imm Gran Abs Auto 0.03 X10*3/uL (0.00-0.03); Imm Gran Pct Auto 0.3 % (0.0-0.4); Lymphocytes Absolute Auto 2.7 X10*3/uL (1.2-4.9); Mean Corpuscular HGB Conc 33.2 g/dl (31.0-36.0); Mean Corpuscular Hemoglobin 30.2 pg (27.0-33.0); Mean Corpuscular Volume 90.7 fL (80.0-98.0); Mean Platelet Volume 11.7 fL (9.4-12.4); Monocytes Absolute Auto 0.7 X10*3/uL (0.1-1.2); Monocytes Percent Auto 7.5 % (2-11); Neutrophils Absolute Auto 5.7 x10*3/uL (2.0-8.3); Platelet Count 226 X10*3/uL (160-400); Red Blood Count 4.31 X10*6/uL (4.60-5.80); White Blood Count 9.2 X10*3/uL (4.8-10.8)
[2023-10-26 16:25] LABS: Alanine Aminotransferase 22 U/L (0-40); Albumin Level 4.2 g/dL (3.5-5.0); Alkaline Phosphatase 79 U/L (39-117); Anion Gap 14 (12-20); Aspartate Amino Transferase 24 U/L (5-37); Bilirubin Total 0.6 mg/dL (0.0-1.0); Blood Urea Nitrogen 18 mg/dL (9-16); Calcium 9.6 mg/dL (8.4-10.2); Carbon Dioxide 24 mmol/L (22-29); Chloride 105 mmol/L (96-108); Estimated Glomerular Filt Rate > 60; Glucose Random 141 mg/dL (60-115); Potassium 4.4 mmol/L (3.3-5.1); Sodium 139 mmol/L (135-145); Total Protein 6.9 g/dL (6.5-8.0)
[2023-10-26 17:03] LABS: Erythrocyte Sedimentation Rate 6 MM/HR (0-15)
== END 2023-10-26 12:54 | disposition home or self-care (01) ==
LOC: HO.HMGCLDS 12:53
PROVIDERS: PCP Internal Medicine; Visit Provider Student in an Organized Health Care Education/Training Program
DX: Z79.899 Other long term (current) drug therapy (principal)
CPT/HCPCS: 36415; 80053; 85025; 85652; 86140

== ENCOUNTER 2024-01-28 14:09 | Outpatient (REF) | payer MEDICARE, MEDICAID, SELFPAY ==
[2024-01-28 16:21] LABS: MANUAL DIFF FLAG NO
[2024-01-28 16:35] LABS: Basophils Absolute Auto 0.1 X10*3/uL (0.0-0.2); Basophils Percent Auto 0.6 % (0-2); Eosinophils Absolute Auto 0.1 X10*3/uL (0.0-0.4); Hematocrit 38.9 % (42.0-52.0); Hemoglobin 12.7 g/dl (14.0-18.0); Imm Gran Abs Auto 0.02 X10*3/uL (0.00-0.03); Imm Gran Pct Auto 0.2 % (0.0-0.4); Lymphocytes Absolute Auto 2.9 X10*3/uL (1.2-4.9); Mean Corpuscular HGB Conc 32.6 g/dl (31.0-36.0); Mean Corpuscular Hemoglobin 29.8 pg (27.0-33.0); Mean Corpuscular Volume 91.3 fL (80.0-98.0); Mean Platelet Volume 11.3 fL (9.4-12.4); Monocytes Absolute Auto 0.7 X10*3/uL (0.1-1.2); Monocytes Percent Auto 8.4 % (2-11); Neutrophils Percent Auto 56.8 % (45-73); Platelet Count 261 X10*3/uL (160-400); Red Blood Count 4.26 X10*6/uL (4.60-5.80); Red Cell Distribution Width 13.9 % (11.0-16.0); White Blood Count 8.9 X10*3/uL (4.8-10.8)
[2024-01-28 17:33] LABS: Alanine Aminotransferase 18 U/L (0-40); Albumin Level 4.2 g/dL (3.5-5.0); Alkaline Phosphatase 88 U/L (39-117); Anion Gap 12 (12-20); Aspartate Amino Transferase 24 U/L (5-37); Bilirubin Total 0.4 mg/dL (0.0-1.0); Blood Urea Nitrogen 14 mg/dL (9-16); C Reactive Protein 0.46 mg/dL (< or = 0.50); Calcium 9.9 mg/dL (8.4-10.2); Carbon Dioxide 29 mmol/L (22-29); Chloride 108 mmol/L (96-108); Estimated Glomerular Filt Rate > 60; Glucose Random 45 mg/dL (60-115); Potassium 4.6 mmol/L (3.3-5.1); Sodium 144 mmol/L (135-145); Total Protein 7.1 g/dL (6.5-8.0)
[2024-01-28 17:39] LABS: Erythrocyte Sedimentation Rate 7 MM/HR (0-15)
== END 2024-01-28 14:10 | disposition home or self-care (01) ==
LOC: HO.HMGCLDS 14:09
PROVIDERS: PCP Internal Medicine; Visit Provider Student in an Organized Health Care Education/Training Program
DX: Z79.899 Other long term (current) drug therapy (principal)
CPT/HCPCS: 36415; 80053; 85025; 85652; 86140

== ENCOUNTER 2024-02-02 10:10 | Outpatient (AMB) | payer MEDICARE, MEDICAID, SELFPAY ==
--- NOTE | 2024-02-02 10:20 | MHC.OFFVIS ---
Vital Signs 02/02/24 10:24 Height 5 ft 7 in Weight 161 lb 6.054 oz BMI 25.3 BP 90/60 Blood Pressure Location Rt brachial Position Sitting Pulse 60 Pulse Source Pulse Oximeter Pulse Oximetry (%) 99 Oxygen Delivery Method Room Air Intake Visit Reasons: RA Intake Note: Patient presents for RA. Allergies No Known Allergies Allergy (Verified 02/02/24 10:23) Medication List - Last Reconciled 02/02/24 by Adan Smith MD amlodipine 5 mg PO DAILY aspirin (Adult Low Dose Aspirin) 81 mg PO DAILY calcium carbonate-vitamin D3 600 mg-10 mcg (400 unit) (Calcium 600 + D(3)) 1 tab PO DAILY folic acid 1 mg PO DAILY insulin aspart U-100 (Novolog FlexPen U-100 Insulin aspart) 5 units subcut DIRECTED insulin glargine (Lantus U-100 Insulin) 11.5 units subcut DIRECTED insulin syringe-needle U-100 As directed lisinopril 20 mg (2 x 10 mg) PO DAILY methotrexate sodium 10 mg (4 x 2.5 mg) PO QWEEK eqrvaxvi-vpy-EB-lycopen-lutein 0.4 mg-300 mcg- 250 mcg (Centrum Silver) 1 tab PO DAILY simvastatin 20 mg PO DAILY HPI Comments Details: This is a 73-year-old male with seronegative RA who presents for follow-up Last seen 07/2023 On methotrexate 4 tabs weekly and folic acid 1 mg daily. Lowering methotrexate from 5 to 4 tabs weekly did not make any difference. He states that the hit his left thumb with a hammer 3 days ago. The pain and swelling is improving. He has no complaints today [facility] Medical History Sacroiliac joint pain Normocytic normochromic anemia Tubular adenoma of colon Essential hypertension Type 1 diabetes mellitus with background retinopathy Dyslipidemia Inflammatory arthritis Surgical History Hx of colonoscopy No pertinent past surgical history Family History Father CVD (cardiovascular disease) Diabetes mellitus Mother Arthritis Maternal Aunt Diabetes mellitus Paternal Aunt Diabetes mellitus Sister No problems noted. Son No problems noted. Son No problems noted. Brother No problems noted. Brother No problems noted. Brother No problems noted. Brother No problems noted. Social History Housing: House Alcohol intake: current Alcohol intake frequency: a few times a month Alcohol type: beer Patient Tobacco Use Status: Never used Tobacco e-Cigarette/Vaping Use: Never Used Second Hand Smoke Exposure: No service: No Current occupational status: retired Cognitive needs: No Hearing needs: No Vision needs: Yes Review of Systems Musc Denies arthralgias and Denies stiffness Physical Exam Vital Signs: Last Vital Signs Pulse 60 02/02/24 10:24 BP 90/60 02/02/24 10:24 Pulse Ox 99 02/02/24 10:24 Oxygen Delivery Method Room Air 02/02/24 10:24 BMI result Body Mass Index 25.3 Const General: cooperative, healthy appearing and comfortable Nutritional Appearance: average body habitus Orientation/consciousness: patient oriented x3 Limitations: no limitations HEENT Head: Yes normocephalic and Yes atraumatic Mouth: moist mucous membranes Resp Effort & Inspection: normal respiratory effort and able to speak in complete sentences Auscultation: clear to auscultation bilaterally Cardio Rate: regular rate Rhythm: regular rhythm Neuro General: patient oriented x3 Extrem Other: Left thumb erythema swelling and minimal tenderness (patient hit it with a hammer 3 days ago) No active synovitis Mild osteoarthritic changes of both hands Bilateral diabetic cheiroarthropathy both hands Normal nailfold capillaroscopy Normal range of motion of both knees without pain Assessment & Plan Assessment & Plan (1) Seronegative rheumatoid arthritis: Comment: -ve RF -ve CCP dx 2015 MR hand showing synovitis and tenosynovitis on MTX 17.5 mg since 2017 advanced to 20 mg due to synovitis 2020, reduced to 15 mg 09/2021, reduced to 10 mg 07/2023 Code(s): M06.00 - Rheumatoid arthritis without rheumatoid factor, unspecified site Category: Medical Plan: This is a [id number] male with seronegative RA returns for follow-up. He is in remission on methotrexate 10 mg weekly and folic acid 1 mg daily. Lowering methotrexate from 12.5 mg to 10 mg did not make a difference Lower methotrexate to 7.5 mg weekly. 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 Not symptomatic per patient (3) continuous churn buttermaker methotrexate user: Code(s): Z79.899 - Other care home (current) drug therapy Category: Medical Plan: Monitor safety labs Plan I spent 26 minutes reviewing patient's chart, evaluating patient, ordering diagnostic workup, counseling patient and documenting in the chart Orders: Orders Complete Blood Count Auto Diff 6 Months M06.00 - Rheumatoid arthritis without rheumatoid factor, unspecified site, Z79.899 - Other care home (current) drug therapy Comprehensive Met. Panel 6 Months M06.00 - Rheumatoid arthritis without rheumatoid factor, unspecified site, Z79.899 - Other care home (current) drug therapy C Reactive Protein 6 Months M06.00 - Rheumatoid arthritis without rheumatoid factor, unspecified site, Z79.899 - Other continuous churn buttermaker (current) drug therapy C Reactive Protein 3 Months M06.00 - Rheumatoid arthritis without rheumatoid factor, unspecified site, Z79.899 - Other care home (current) drug therapy Erythrocyte Sedimentation Rate 3 Months M06.00 - Rheumatoid arthritis without rheumatoid factor, unspecified site, Z79.899 - Other care home (current) drug therapy Erythrocyte Sedimentation Rate 6 Months M06.00 - Rheumatoid arthritis without rheumatoid factor, unspecified site, Z79.899 - Other care home (current) drug therapy Complete Blood Count Auto Diff 3 Months M06.00 - Rheumatoid arthritis without rheumatoid factor, unspecified site, Z79.899 - Other continuous churn buttermaker (current) drug therapy Comprehensive Met. Panel 3 Months M06.00 - Rheumatoid arthritis without rheumatoid factor, unspecified site, Z79.899 - Other continuous churn buttermaker (current) drug therapy Coding Level of Care Code Est Pt Level 4 (03337) Complex EM visit Add On G2211 Diagnoses Seronegative rheumatoid arthritis M06.00 Diabetic cheirarthropathy E11.618 detention methotrexate user Z79.899
[2024-02-02 10:24] VITALS: BP 90/60; PULSE 60; O2SAT 99; BMI 25.3
== END 2024-02-02 10:47 | disposition home or self-care (01) ==
PROVIDERS: PCP Internal Medicine; Visit Provider Student in an Organized Health Care Education/Training Program
DX: M06.00 Rheumatoid arthritis without rheumatoid factor, unspecified site (principal); E11.618 Type 2 diabetes mellitus with other diabetic arthropathy; Z79.899 Other long term (current) drug therapy
CPT/HCPCS: 99214; G2211

== ENCOUNTER → 2024-02-02 10:10 | Outpatient (BNVA) | payer MEDICARE, MEDICAID, SELFPAY | PROVIDERS: PCP Internal Medicine; Visit Provider Student in an Organized Health Care Education/Training Program | DX: M06.00 Rheumatoid arthritis without rheumatoid factor, unspecified site (principal); E11.618 Type 2 diabetes mellitus with other diabetic arthropathy; Z79.899 Other long term (current) drug therapy | CPT/HCPCS: 99212 ==

== ENCOUNTER 2024-04-03 09:29 | Outpatient (REF) | payer MEDICARE, MEDICAID, SELFPAY ==
[2024-04-03 14:12] LABS: Cholesterol 175 mg/dL (<200); HDL Cholesterol 81 mg/dL (>40); LDL Cholesterol Calculated 84 mg/dL (<100); Triglycerides 54 mg/dL (<150)
[2024-04-03 14:13] LABS: PSA,Total (Free>4and<10) 0.97 ng/mL (0.00-4.00)
== END 2024-04-03 09:30 | disposition home or self-care (01) ==
LOC: HO.HMGCLDS 09:29
PROVIDERS: PCP Internal Medicine; Visit Provider Internal Medicine
DX: E78.5 Hyperlipidemia, unspecified (principal); Z12.5 Encounter for screening for malignant neoplasm of prostate
CPT/HCPCS: 36415; 80061; 84153

== ENCOUNTER 2024-04-07 09:26 | Outpatient (AMB) | payer MEDICARE, MEDICAID, SELFPAY ==
--- NOTE | 2024-04-07 09:29 | A.OFFPC_ITS ---
Vital Signs 04/07/24 09:35 Height 5 ft 7 in Weight 163 lb BMI 25.5 BP 128/70 Blood Pressure Location Lt brachial Position Sitting Pulse 63 Pulse Source Pulse Oximeter Pulse Oximetry (%) 99 Oxygen Delivery Method Room Air Intake Visit Reasons: PE Intake Note: Pt is here today for his PE: Last colonoscopy 08/06/21 Allergies No Known Allergies Allergy (Verified 04/07/24 10:00) Medication List - Last Reconciled 04/07/24 by Cortney Blakely MD amlodipine 5 mg PO DAILY aspirin (Adult Low Dose Aspirin) 81 mg PO DAILY calcium carbonate-vitamin D3 600 mg-10 mcg (400 unit) (Calcium 600 + D(3)) 1 tab PO DAILY folic acid 1 mg PO DAILY insulin aspart U-100 (Novolog FlexPen U-100 Insulin aspart) 5 units subcut DIRECTED insulin glargine (Lantus U-100 Insulin) 11.5 units subcut DIRECTED insulin syringe-needle U-100 As directed lisinopril 20 mg (2 x 10 mg) PO DAILY methotrexate sodium 10 mg (4 x 2.5 mg) PO QWEEK uklkujmz-vdu-OS-lycopen-lutein 0.4 mg-300 mcg- 250 mcg (Centrum Silver) 1 tab PO DAILY simvastatin 20 mg PO DAILY Tobacco use date assessed: 04/07/24 Last assessed Fall Risk: 04/07/24 Dental Screening Dental Screen Date: 04/07/24 Did you have a dental visit in the last 12 months?: Yes Did you have a dental problem in the last 6 months where you did not have access to dental care?: Yes Was dental information given to patient?: Patient has dentist HPI PE HPI Details 73-year-old male here today for his phys ical exam. Currently being followed by Dr. Rich for his type 1 diabetes mellitus with latest hemoglobin A1c at 7.3% last 02/28/2024. Hypertension stable and controlled on amlodipine 5 mg daily and lisinopril 20 mg once a day. He has seronegative rheumatoid arthritis, followed by Rheumatology, currently controlled on methotrexate 10 mg once a week. Has dyslipidemia currently on simvastatin with latest fasting lipids checked 04/03/2024 within normal limits. Total PSA is also within normal limits. Last diabetes eye exam done by [facility] 12/21/2023 showed presence of background retinopathy bilateral. He is up-to-date with his screening colonoscopy done in [address] Mejía with removal of tubular adenoma polyps, repeat due again in 2026. He is he was given his Prevnar 20 on today's visit, has had 1 shingles vaccine, not sure whether he had his COVID booster flu shot or 2nd dose of shingles yet, advised to check with his pharmacy [facility] whether he has received these vaccines. [facility] Medical History (Updated 04/07/24 @ 10:42 by Cortney Blakely MD) Hx of adenomatous polyp of colon Sacroiliac joint pain Normocytic normochromic anemia Tubular adenoma of colon Essential hypertension Type 1 diabetes mellitus with background retinopathy Dyslipidemia Inflammatory arthritis Surgical History Hx of colonoscopy No pertinent past surgical history Family History Father CVD (cardiovascular disease) Diabetes mellitus Mother Arthritis Maternal Aunt Diabetes mellitus Paternal Aunt Diabetes mellitus Sister No problems noted. Son No problems noted. Son No problems noted. Brother No problems noted. Brother No problems noted. Brother No problems noted. Brother No problems noted. Social History Housing: House Alcohol intake: current Alcohol intake frequency: a few times a month Alcohol type: beer Patient Tobacco Use Status: Never used Tobacco e-Cigarette/Vaping Use: Never Used Second Hand Smoke Exposure: No service: No Current occupational status: retired Cognitive needs: No Hearing needs: Yes Vision needs: Yes Questionnaire PHQ-9 Over the last 2 weeks, how often have you been bothered by any of the following problems? 1. Little interest or pleasure in doing things: not at all 2. Feeling down, depressed, or hopeless: not at all 3. Trouble falling or staying asleep, or sleeping too much: not at all 4. Feeling tired or having little energy: not at all 5. Poor appetite or overeating: not at all 6. Feeling bad about yourself - or that you are a failure or have let yourself or your family down: not at all 7. Trouble concentrating on things, such as reading the newspaper or watching television: not at all 8. Moving or speaking so slowly that other people could have noticed. Or the opposite - being so fidgety or restless that you have been moving around a lot more than usual: not at all 9. Thoughts that you would be better off or of hurting yourself in some way: not at all Total score: 0 Depression Screening Interpretation: Negative Depression Screening Done: Yes 92075 - PHQ-9 Billing: Yes Source: Developed by Drs. Seferino Valdez, Mehreen Briceno, Obie Mcgee and colleagues, with an educational jad from [employer]. Thrive Questionnaire Date Thrive assessed: 04/07/24 I am a: Patient What is your living situation today?: I choose not to answer this question Within the past 12 months, did the food you bought not last and you didn't have the money to get more?: I choose not to answer this question Within the past 12 months, did you worry whether your food would run out before you got money to buy more?: I choose not to answer this question Do you have trouble paying for medicines?: I choose not to answer this question Do you have trouble getting transportation to medical appointments?: I choose not to answer this question Do you have trouble paying your heating and electricity bill?: I choose not to answer this question Do you have trouble taking care of your child, family member or friend?: I choose not to answer this question Do you have trouble with day-to-day activities such as bathing, preparing meals, shopping, managing finances, etc.?: I choose not to answer this question Are you currently unemployed and looking for a job?: I choose not to answer this question Are you interested in more education?: I choose not to answer this question Please select the resources that you would like help with: None Currently or been in a relationship where the following occur: I choose not to answer THRIVE Score: 0 AUDIT C Alcohol Use Questionnaire (AUDIT-C) 1. How often do you have a drink containing alcohol?: 2-4 times a month 2. How many drinks containing alcohol do you have on a typical day when you are drinking?: 3 or 4 3. How often do you have six or more drinks on one occasion?: Never Total Score: 3 LESVIA-7 AMB Questionnaire LESVIA-7 Date LESVIA - 7 assessed: 04/07/24 Feeling nervous, anxious, or on edge: 0 = Not at all Not being able to stop or control worryin = Not at all Worrying too much about different things: 0 = Not at all Trouble relaxin = Not at all Being so restless that it is hard to sit still: 0 = Not at all Becoming easily annoyed or irritable: 0 = Not at all Feeling afraid as if something awful might happen: 0 = Not at all Total LESVIA-7 score (0-4 normal; 5-9 mild; 10-14 moderate; 15-21 severe): 0 Source: Developed by Drs. Seferino Valdez, Mehreen Briceno, Obie Mcgee and colleagues, with an educational jad from [employer]. LESVIA-7 Assessment Billing LESVIA-7 Assessment Tool: LESVIA-7 Assessment 24176 Review of Systems Const Denies body aches, Denies fatigue, Denies fever(s) and Denies lethargy Eyes Details: Goes to [facility] for his routine eye exam, currently up-to-date ENT Reports no additional complaints and Reports Normal hearing present Card Denies chest pain, Denies rapid heart rate, Denies irregular heart rhythm, Denies leg edema and Denies lightheadedness Resp Denies chest congestion, Denies cough and Denies pain with cough GI Denies abdominal pain, Denies melena, Denies hematochezia, Denies change in bowel habits and Denies heartburn Reports no additional complaints Musc Reports no additional complaints Skin/Breast Denies breast mass, Denies lesions and Denies rash Neuro Reports no additional complaints, Reports Normal hearing present and Denies Sensory deficit (Neuro) Psych Reports no additional complaints Endo Denies fatigue Stanley/Lymph Denies easy bleeding, Denies easy bruising and Denies lymphadenopathy Aller/Immun Reports no additional complaints Physical exam (Primary Care) Vital Signs: Last Vital Signs Pulse 63 04/07/24 09:35 BP 128/70 04/07/24 09:35 Pulse Ox 99 04/07/24 09:35 Oxygen Delivery Method Room Air 04/07/24 09:35 BMI result Body Mass Index 25.5 Tobacco/Smoking Status: Tobacco use Status Tobacco use date assessed 04/07/24 04/07/24 09:34 Patient Tobacco Use Status Never used Tobacco 04/07/24 09:34 e-Cigarette/Vaping Use Never Used 04/07/24 09:34 PHQ-9: PHQ-9 Score PHQ-9: Total score 0 04/09/24 16:07 Depression Screening Interpretation: Negative Thrive Assessment: Date of Thrive Assessment Date Thrive assessed 04/07/24 04/09/24 15:53 Currently or been in a relationship where the following occur: I choose not to answer Const General: cooperative, no acute distress and alert Orientation/consciousness: patient oriented x3 HENMT Mouth: Normal oral and palatal mucosa present and moist mucous membranes Eyes General: appearance normal, both eyes and all related structures Neck Neck: Yes full ROM and Yes no lymphadenopathy Thyroid: Thyroid normal Chest Chest palpation & inspection: normal inspection of the chest Resp Effort & Inspection: normal respiratory effort and able to speak in complete sentences Auscultation: clear to auscultation bilaterally Cardio Jugular venous distension: no JVD Rate: regular rate Rhythm: regular rhythm Heart sounds: S1 normal heart sound present and S2 normal heart sound present GI Inspection: Yes normal to inspection Palpation (GI): Soft to palpation Auscultation: normal bowel sounds General: Yes no CVA tenderness Male General Exam: Yes normal external exam Back/Spine/Pelvis Back: no CVA tenderness and No back tenderness Skin General skin exam: no rashes or lesions noted Neuro General: patient oriented x3, gait normal, moves all extremities, no focal motor deficits and CN's II-XI intact bilaterally Cranial nerves: Yes Normal hearing present Gait exam (Neuro): Normal gait present Motor exam (neuro): 5/5 motor strength present throughout Sensory Exam: No Sensory deficit (Neuro) Extrem General: Yes normal to inspection, Yes full ROM, Yes no pedal edema and Yes normal gait Psych Appearance: grossly normal and well kempt Mental Status: mental status grossly normal Speech and movement: Normal speech and movement present Affect: normal affect Thought process: Normal thought process present Immunizations pneumoc 20-nadeem conj-dip cr(PF) 0.5 mL IM syringe Performing Provider: Cortney Blakely MD Performing Location: [facility] Administered by: Humera Paige CMA on 04/07/24 10:36 Dose Route Admin Location Dispensed Lot Number Expiration Date [facility] Manager Card 0.5 mL IM Right Deltoid 0.5 mL [id number] 08/09/25 0290-7466-70 [employer]PFI[employer]ER VIS Given Date VIS Provided VIS Publication Date 04/07/24 Single Vaccine 21 Eligibility Eligibility Date Funding Source Not [facility] Eligible 04/07/24 Private Coding Level of Care Code Est Pt Prev Care >65y(90584) Diagnoses Annual visit for general adult medical examination with abnormal findings Z00.01 Dyslipidemia E78.5 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 Recommended dental visit every 6 months and followed at [facility] for his diabetes retinopathy screening and routine exam periods Take adequate calcium in diet and vitamin-D 3 at 2000 IU per cap once a day, in addition to weight-bearing exercises to help maintain good muscle tone and weight control. Instructed to do self-testicular exam check for any mass. Latest PSA was within normal limits repeat colonoscopy due again in 2026. Prevnar 20 given today. Reminded to check with [facility] pharmacy whether he has already received his COVID booster, flu shot and 2nd dose of shingles vaccine (2) Dyslipidemia: Code(s): E78.5 - Hyperlipidemia, unspecified Category: Medical Plan: Latest fasting labs are within normal limits, continued on simvastatin 20 mg daily. (3) Type 1 diabetes mellitus with background retinopathy: Code(s): E10.3299 - Type 1 diabetes mellitus with mild nonproliferative diabetic retinopathy without macular edema, unspecified eye Category: Medical Plan: Latest hemoglobin A1c is at 7.3%, followed by Dr. Rich at [facility] endocrine clinic, currently on NovoLog FlexPen 5 units per sliding scale and Lantus 11.5 units once a day. Up-to-date with his diabetes retinopathy screening, goes to Podiatry for his routine diabetes foot exam. Prevnar 20 given today, reminded to get his flu vaccine COVID vaccination both to be given at the pharmacy (4) Essential hypertension: Code(s): I10 - Essential (primary) hypertension Category: Medical Plan: Reviewed recent labs obtained at [facility] for basic metabolic panel which came back within normal limits. Blood pressure stable and controlled on present treatment will continue with current medications, reinforced importance of following a low-salt diet and getting regular exercise (5) Normocytic normochromic anemia: Code(s): D64.9 - Anemia, unspecified Category: Medical Plan: Reinforced importance of following an iron rich diet. Last CBC done 01/28/2024 showed no acidic normochromic anemia. Will continue to monitor (6) Hx of adenomatous polyp of colon: Comment: repeat colonoscopy [place] [address] Mejía Code(s): Z86.0101 - Personal history of adenomatous and serrated colon polyps Category: Medical Plan: Repeat screening colonoscopy due again in 2021 Orders: Orders Pneumococcal 20 Immunization 04/07/24 Z23 - Encounter for immunization Lipid Panel 09/10/24 D64.9 - Anemia, unspecified, E10.3299 - Type 1 diabetes mellitus with mild nonproliferative diabetic retinopathy without macular edema, unspecified eye, E78.5 - Hyperlipidemia, unspecified, I10 - Essential (primary) hypertension, Z86.0101 - Personal history of adenomatous and serrated colon polyps Alanine Aminotransferase 09/10/24 D64.9 - Anemia, unspecified, E10.3299 - Type 1 diabetes mellitus with mild nonproliferative diabetic retinopathy without macular edema, unspecified eye, E78.5 - Hyperlipidemia, unspecified, I10 - Essential (primary) hypertension, Z86.0101 - Personal history of adenomatous and serrated colon polyps Aspartate Amino Transferase 09/10/24 D64.9 - Anemia, unspecified, E10.3299 - Type 1 diabetes mellitus with mild nonproliferative diabetic retinopathy without macular edema, unspecified eye, E78.5 - Hyperlipidemia, unspecified, I10 - Essential (primary) hypertension, Z86.0101 - Personal history of adenomatous and serrated colon polyps
[2024-04-07 09:35] VITALS: BP 128/70; PULSE 63; O2SAT 99; BMI 25.5
== END 2024-04-07 10:47 | disposition home or self-care (01) ==
PROVIDERS: PCP Internal Medicine; Visit Provider Internal Medicine
DX: Z23 Encounter for immunization (principal)

== ENCOUNTER 2024-06-27 11:17 | Outpatient (AMB) | payer MEDICARE, MEDICAID, SELFPAY ==
[2024-06-27 11:25] VITALS: BP 124/76; PULSE 69; TEMP 36.8; O2SAT 98; BMI 25.4
--- NOTE | 2024-06-27 11:25 | AM.OFFWIN_ITS ---
Intake Vital Signs 06/27/24 11:25 Height 5 ft 7 in Weight 162 lb 8 oz BMI 25.4 BP 124/76 Blood Pressure Location Lt brachial Position Sitting Pulse 69 Pulse Source Pulse Oximeter Temp 98.3 F Temp Source Oral Pulse Oximetry (%) 98 Oxygen Delivery Method Room Air Intake Visit Reasons: EP Ear pain Intake Note: Pt presents to the office today for c/o questioning left ear infection. Pt states he has no pain today but states he had two episodes of sharp popping pain yesterday. Patient Tobacco Use Status: Never used Tobacco Allergies No Known Allergies Allergy (Verified 06/27/24 11:25) HPI HPI Comments History of Present Illness Details Patient is a 73-year-old male complaining of left ear pain for 4 days. He tells me that 4 days ago, he noticed he was not hearing as well in his ear and he felt a sharp pain when he woke up in the morning and then it was final day but then the next day it happened again when he clenched down on his jaw. He does wear hearing aids but it stating he has reduced hearing regardless. He denies any fevers. [facility] Medical History (Updated 06/27/24 @ 11:50 by Shayy Gibson PA-C) Hx of adenomatous polyp of colon Sacroiliac joint pain Normocytic normochromic anemia Tubular adenoma of colon Essential hypertension Type 1 diabetes mellitus with background retinopathy Dyslipidemia Inflammatory arthritis Surgical History Hx of colonoscopy No pertinent past surgical history Family History Father CVD (cardiovascular disease) Diabetes mellitus Mother Arthritis Maternal Aunt Diabetes mellitus Paternal Aunt Diabetes mellitus Sister No problems noted. Son No problems noted. Son No problems noted. Brother No problems noted. Brother No problems noted. Brother No problems noted. Brother No problems noted. Social History Housing: House Alcohol intake: current Alcohol intake frequency: a few times a month Alcohol type: beer Patient Tobacco Use Status: Never used Tobacco e-Cigarette/Vaping Use: Never Used Second Hand Smoke Exposure: No service: No Current occupational status: retired Cognitive needs: No Hearing needs: Yes Vision needs: Yes Review of Systems Const All systems reviewed & are unremarkable except as noted in HPI and below Physical Exam Vital Signs: Last Vital Signs Temp 98.3 F 06/27/24 11:25 Pulse 69 06/27/24 11:25 BP 124/76 06/27/24 11:25 Pulse Ox 98 06/27/24 11:25 Oxygen Delivery Method Room Air 06/27/24 11:25 BMI result Body Mass Index 25.4 Const General: cooperative, healthy appearing, comfortable and no acute distress Orientation/consciousness: patient oriented x3 HEENT Head: Yes normal to inspection, Yes No palpable skull fracture present and Yes normocephalic Ears: hearing grossly normal bilaterally, external ears normal, TM's normal bilaterally, EAC's normal (Left with a foreign body; after removal, erythematous, edema and purulence) and mastoids normal (no TTP) bilaterally General nose exam: Normal external nose present Face and sinus: Yes normal facial exam Mouth: Normal oral and palatal mucosa present Teeth and gingiva: dentition normal Throat: Yes posterior oropharynx normal Eyes General: appearance normal, both eyes and all related structures Neck Neck: Yes normal visual inspection, Yes full ROM, Yes no lymphadenopathy, Yes no meningeal signs, Yes trachea midline and Yes supple Resp Effort & Inspection: normal respiratory effort and able to speak in complete sentences Skin General skin exam: no rashes or lesions noted Neuro General: patient oriented x3 and no meningeal signs Assessment & Plan Assessment & Plan (1) Foreign body of left external ear: Code(s): S00.452A - Superficial foreign body of left ear, initial encounter Plan: Able to remove foreign body with no problem, it looked like it was a part of his hearing aid, the plastic cap. Once it was removed, patient had rates duration of normal hearing level however the EAC was malodorous in the left ear with notable erythema, edema and a small area of purulence. We will treat for otitis externa. Recommended patient not use his his left hearing aid while he is using the eardrops. Sent drops to his pharmacy. (2) Otitis externa of left ear: Code(s): H60.92 - Unspecified otitis externa, left ear Qualifiers: Otitis externa type: other infective Chronicity: acute Qualified Code(s): H60.392 - Other infective otitis externa, left ear Plan: as above Medications: New gpinzbie-wyzbsdasa-BQ 3.5-10,000-1 mg/mL-unit/mL-% 4 drps otic (ear) left QID 7 days 10 mL 0RF Coding Level of Care Code Est Pt Level 3 (89511) Diagnoses Foreign body of left external ear S00.452A Other infective acute otitis externa of left ear H60.392 Otitis externa type: other infective Chronicity: acute
--- OUTSIDE RECORDS SUMMARY | 2024-06-27 13:43 | XMS_ITS | Encounter Summary ---
Author Organization [facility] Address [address] [place] [address] [place] [address] Phone Care Team Providers Care Product Promoter Retail Pet Name Role Phone Cortney Blakely MD Primary Care Provider [phone]- [phone] Reason for Visit * Reason Comments Follow Up Visit Encounter Details Date Type Department Care Team (Late st Contact Info) Description 05/30/2024 11:00 AM EST Office Visit [facility] Endocrinology [address] [address] Yoselin Rich MD [address] [place] [phone] [email or web address] Type 1 diabetes mellitus with peripheral neuropathy (Primary Dx); 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 Not on harris e 08/08/2022 Are you concerned about learning? Not on file 08/08/2022 No 08/08/2022 No 08/08/2022 Digital Access Answer Date Recorded No 09/06/2022 No 09/06/2022 Reliable internet access at home? Not on file 09/06/2022 Device with a working camera? Not on file Sex and Gender Information Value Date Recorded Sex Assigned at Not on file Gender Identity Not on file Sexual Orientation Not on file documented as of this encounter Last Filed Vital Signs Vital Sign Reading Time Taken Comments Blood Pressure 118/76 05/30/2024 10:49 AM EST Pulse 67 05/30/2024 10:49 AM EST Temperature 36.3 ??C (97.4 ??F) 05/30/2024 1 0:49 AM EST Respiratory Rate 16 05/30/2024 10:4 9 AM EST Oxygen Saturation 97% 05/30/2024 10: 49 AM EST Inhaled Oxygen Concentration - - Weight 75.7 kg (166 lb 12.8 oz) 025 10:49 AM EST Height 175.6 cm (5' 9.13 ) 05/30/2024 1 0:49 AM EST Body Mass Index 24.54 05/30/2024 10:49 AM EST documented in this encounter Patient Instructions * Patient Instructions* Yoselin Rich MD - 05/30/2024 11:00 AM EST Would advise 10 units of semglee or lantus, cut back slightly on breakfast/dinner novolog to avoid lows. Contact rheumatology @ foot/ankle/wrist discomfort Labs today documented in this encounter Progress Notes * Yoselin Rich MD - 05/30/2024 11:00 AM EST Subjective: Patient ID: Kevin Serrato is a 73 y.o. male. HPI In the interval since the last visit, having some pain/swelling left wrist & right foot. No other changes in health. LV w/ PCP . Has follow up w/ PCP in August for cholesterol. A1C: 7.3% in February Blood glucose monitoring: using ramana, not usually doing fingersticks, Reviewed download: Average glucose 134, GMI 6.5%, CV 35.8%. Time in range 76%, Time high 14%, Time very high 1%, Time low 7%, Time very low 2%. Hypoglycemia: no severe lows, mild lows - ~ 1x/week, some overnight Diet: 3 meals, late afternoon snack, hs snack; mostly healthy choices, portions ok Activity: limited Ophtho: up to date, no change in vision Podiatry/Foot: as above, otherwise no LE symptoms Injection/pump sites/timing: abdomen, some thighs, as eating, up to 10 min prior Current Outpatient Medications Ordered in Epic Medication Sig amLODIPine (NORVASC) 5 MG tablet Take 5 mg by mouth every evening. BD ULTRA-FINE VIVIAN PEN NEEDLE 32 gauge x 5/32 Ndle 1 each by Miscellaneous route 3 (three) times aday. calcium carbonate (CALCIUM 600 ORAL) Take 1 capsule by mouth daily. folic acid (FOLVITE) 1 MG tablet Take 1 tablet by mouth every morning. FREESTYLE LITE Strp strips 1 each by Miscellaneous route 3 (three) times a day before meals. Dx E10.42 on insulin insulin aspart U-100 (NOVOLOG FLEXPEN U-100 INSULIN) 100 unit/mL (3 mL) injection pen Inject 3-10 Units under the skin 3 (three) times a day with meals. Plus 2 units to prime pen with each dose. insulin syringe-needle U-100 0.3 mL 31 gauge x 5/16 Syrg Use as directed to administer insulin daily lisinopril (PRINIVIL,ZESTRIL) 10 MG tablet Take 20 mg by mouth every morning. Medication-Free Text Take 15 mg by mouth every morning. Indications: CBD Gummie methotrexate 2.5 MG Oral tablet Take 10 mg by mouth once a week. multivit-min/folic/vit K/lycop (MEN'S 50 PLUS MULTIVITAMIN ORAL) Take 1 capsule by mouth daily. LANTUS SOLOSTAR U-100 INSULIN 100 unit/mL (3 mL) InPn injection pen 10-11 units, subcutaneously, once daily simvastatin (ZOCOR) 20 MG tablet TAKE 1 TABLET BY MOUTH ONCE DAILY IN THE MORNING Review of Systems as above & Energy - good, not doing much, particularly w/ winter. Sleeping - good. Weight stable. No CP, edema, SOB. Bowels - ok. Nocturia - 1-2x. Some swelling right knee. Objective: Physical Exam Vitals reviewed. Constitutional: General: He is not in acute distress. Assessment/Plan: Problem List Items Addressed This Visit Cardiovascular and Mediastinum Essential hypertension Well controlled today. Managed by PCP Endocrine Type 1 diabetes mellitus with peripheral neuropathy - Primary Control reasonable based on CGM download, other than excessive, mild hypoglycemia. No severe hypoglycemia. Will shift to lantus d/t insurance coverage, advised to take 10 units daily. Advised he cut back slightly on doses of insulin @ breakfast & evening meal to help avoid lows. Will do labs. To call if hasn't heard from us within 1-2 weeks. Continue to work on eating healthy & keeping active. To call or send in BG with problems with glycemic control. 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 Using CGM to help avoid. Relevant Medications LANTUS SOLOSTAR U-100 INSULIN 100 unit/mL (3 mL) InPn injection pen Type 1 diabetes mellitus with retinopathy Up to date with ophtho. Relevant Medications LANTUS SOLOSTAR U-100 INSULIN 100 unit/mL (3 mL) InPn injection pen documented in this encounter Miscellaneous Notes * Assessment & Plan Note - Yoselin Rich MD - 05/30/2024 2:14 PM EST Associated Problem(s): Type 1 diabetes mellitus with retinopathy Up to date with ophtho. 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 Using CGM to help avoid. * Assessment & Plan Note - Yoselin Rich MD - 05/30/2024 2:13 PM EST Associated Problem(s): Type 1 diabetes mellitus with peripheral neuropathy Control reasonable based on CGM download, other than excessive, mild hypoglycemia. No severe hypoglycemia. Will shift to lantus d/t insurance coverage, advised to take 10 units daily. Advised he cut back slightly on doses of insulin @ breakfast & evening meal to help avoid lows. Will do labs. To call if hasn't heard from us within 1-2 weeks. Continue to work on eating healthy & keeping active. To call or send in BG with problems with glycemic control. * Assessment & Plan Note - Yoselin Rich MD - 05/30/2024 2:12 PM EST Associated Problem(s): Essential hypertension Well controlled today. Managed by PCP documented in this encounter Plan of Treatment Upcoming Encounters Date Type Department Care Team (Late st Contact Info) Description 09/11/2024 11:40 AM EDT Office Visit [facility] Endocrinology [address] [phone] Yoselin Rich MD [address] [place] [phone] [email or web address] 01/08/2025 11:20 AM EDT Office Visit [facility] Endocrinology [address] [phone] Yoselin Rich MD [address] [place] [address] [email or web address] documented as of this encounter Results * Microalbumin/creatinine ratio, random urine (05/30/2024 1:27 PM EST) URINE MICROALBUMIN <1.2 0 - 2.3 mg/dL [facility] URINE CREATININE 37 mg/dL [facility] MICROALB/CRE RATIO NOT CALCULATED 0 - 20 mg/g Cre [facility] Comment:due to Microalbumin <1.2 Urine (Urine) 05/30/2024 1:2 7 PM EST 05/30/2024 1:28 PM EST Yoselin Rich MD URINE ORDERABL ES Performing Organization Address [facility]/ZIP Co de Phone Number [address] [address] * DIRECT LDL (05/30/2024 11:50 AM EST) Direct LDL 90 <100 mg/dL [facility] [address] Comment: (NOTE) Greatly elevated Triglycerides values (>1200 mg/dL) interfere with the dLDL assay. Desirable range <100 mg/dL for primary prevention; ?? <70 mg/dL for patients with CHD or diabetic patients with > or = 2 CHD risk factors. Blood 05/30/2024 11:5 0 AM EST 05/30/2024 11:53 AM EST Yoselin Rich MD LAB BLOOD ORDCori FRANKLIN Performing Organization Address [facility] Co de Phone Number [facility] [address] [address] * Vitamin B12 (05/30/2024 11:50 AM EST) VITAMIN B12 752 232 - 1,245 pg/mL [facility] Blood 05/30/2024 11:5 0 AM EST 05/30/2024 11:53 AM EST Yoselin Rich MD LAB BLOOD ORDCori FRANKLIN Performing Organization Address [facility]/ZIP Co de Phone Number [address] [address] * (ABNORMAL) Basic metabolic panel (05/30/2024 11:50 AM EST) SODIUM 144 133 - 146 mmol/L [facility] CHLORIDE 104 96 - 108 mmol/L [facility] POTASSIUM 5.1 3.3 - 5.1 mmol/L [facility] CO2 29 21 - 35 mmol/L [facility] BUN 14 6 - 19 mg/dL [facility] CREATININE 0.90 0.5 - 1.5 mg/dL [facility] GLUCOSE 156(H) 70 - 99 mg/dL [facility] CALCIUM 10.1 8.4 - 10.3 mg/dL [facility] EGFR 91 >59 mL/min/1.7 3m2 [facility] Comment:Estimated glomerular filtration rate calculated using the CKD-EPI refit equation. ANION GAP 16 10 - 20 mmol/L [facility] Blood 05/30/2024 11:5 0 AM EST 05/30/2024 11:53 AM EST Yoselin Rich MD LAB BLOOD CHRIS FRANKLIN Performing Organization Address [facility] Co de Phone Number [address] [address] * Alanine aminotransferase (ALT) (05/30/2024 11:50 AM EST) ALT 21 0 - 40 U/L [facility] Blood 05/30/2024 11:5 0 AM EST 05/30/2024 11:53 AM EST Yoselin Rich MD LAB BLOOD CHRIS FRANKLIN Performing Organization Address City/[facility]/ZIP Co de Phone Number [address] [address] * Aspartate aminotransferase (AST) (05/30/2024 11:50 AM EST) AST 32 0 - 37 U/L [facility] Blood 05/30/2024 11:5 0 AM EST 05/30/2024 11:53 AM EST Yoselin Rich MD LAB BLOOD CHRIS FRANKLIN [address] [address] * TSH with reflex (05/30/2024 11:50 AM EST) TSH 3.39 0.27 - 4.20 uIU/mL [facility] Blood 05/30/2024 11:5 0 AM EST 05/30/2024 11:53 AM EST Yoselin Rich MD LAB BLOOD ORDCori NOEMI Performing Organization Address City/[facility] Co de Phone Number [address] [address] * (ABNORMAL) Hemoglobin A1c (05/30/2024 11:50 AM EST) HEMOGLOBIN A1C 7.4(H) 4.3 - 5.8 % [facility] Blood 05/30/2024 11:5 0 AM EST 05/30/2024 11:53 AM EST Yoselin Rich MD LAB BLOOD ORDE NOEMI Performing Organization Address City/[facility] de Phone Number [address] [address] documented in this encounter Visit Diagnoses Diagnosis Type 1 diabetes mellitus with peripheral neuropathy- Primary 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 It is not the complete legal health record.[facility]
--- OUTSIDE RECORDS SUMMARY | 2024-06-27 13:43 | XMS_ITS | Encounter Summary ---
Author Organization [facility] Address [address] [facility] [address] [place] [phone] Phone Care Team Providers Care Lion Tamer Name Role Phone Cortney Blakely MD Primary Care Provider [phone]- [phone] Encounter Details Date Type Department Care Team (Late st Contact Info) Description 05/30/2024 11:50 AM EST - 05/30/2024 11:59 PM EST Hospital Encounter [facility] [address] [place] [address] Yoselin Rich MD [address] [place] [phone] [email or web address] Discharge Disposition: Home or Self Care Social History Tobacco Use Types Packs/Day Years [...] on file documented as of this encounter Medications at Time of Discharge Medication Sig Dispensed Refills Start Date End Date amLODIPine (NORVASC) 5 MG tablet Take 5 mg by mouth every evening. 08/27/2022 BD ULTRA-FINE VIVIAN PEN NEEDLE 32 gauge x 5/32 NdleIndications:Type 1 diabetes mellitus with diabetic neuropathy 1 each by Miscellaneous route 3 (three) times a day. 300 each 3 09/16/2023 calcium carbonate (CALCIUM 600 ORAL) Take 1 capsule by mouth daily. folic acid (FOLVITE) 1 MG tablet Take 1 tablet by mouth every morning. 08/03/2023 FREESTYLE LITE Strp stripsIndications:Type 1 diabetes mellitus with diabetic neuropathy 1 each by Miscellaneous route 3 (three) times a day before meals. Dx E10.42 on insulin 300 strip 2 10/19/2022 insulin aspart U-100 (NOVOLOG FLEXPEN U-100 INSULIN) 100 unit/mL (3 mL) injection penIndications:Type 1 diabetes mellitus with peripheral neuropathy Inject 3-10 Units under the skin 3 (three) times a day with meals. Plus 2 units to prime pen with each dose. 30 mL 3 02/28/2024 insulin syringe-needle U-100 0.3 mL 31 gauge x 5/16 SyrgIndications:Type 1 diabetes mellitus with diabetic neuropathy Use as directed to administer insulin daily 100 each 3 05/04/2023 LANTUS SOLOSTAR U-100 INSULIN 100 unit/mL (3 mL) InPn injection penIndications:Type 1 diabetes mellitus with peripheral neuropathy 10-11 units, subcutaneously, once daily 15 mL 3 05/30/2024 lisinopril (PRINIVIL,ZESTRIL) 10 MG tablet Take 20 mg by mouth every morning. 07/04/2022 Medication-Free TextIndications:CBD Gummie Take 15 mg by mouth every morning. Indications: CBD Gummie methotrexate 2.5 MG Oral tablet Take 10 mg by mouth once a week. 09/08/2022 multivit-min/folic/vit K/lycop (MEN'S 50 PLUS MULTIVITAMIN ORAL) Take 1 capsule by mouth daily. simvastatin (ZOCOR) 20 MG tabletIndications:Hyper lipidemia, unspecified hyperlipidemia type TAKE 1 TABLET BY MOUTH ONCE DAILY IN THE MORNING 90 tablet 1 05/30/2024 documented as of this encounter Progress Notes * Charisse Mitchell CMA - 05/30/2024 11:50 AM EST I called left message to call the office back documented in this encounter Plan of Treatment Upcoming Encounters Date Type Department Care Team (Late st Contact Info) Description 09/11/2024 11:40 AM EDT Office Visit [facility] Endocrinology [employer] [address] [place] [address] Yoselin Rich MD [address] [place] [phone] [email or web address] 01/08/2025 11:20 AM EDT Office Visit [facility] Endocrinology [employer] [address] [place] [address] Yoselin Rich MD [address] [place] [phone] [email or web address] documented as of this encounter Procedures Procedure Name Priority Date/Time Associated Diagnosis Comments MICROALBUMIN/CREATININE RATIO, RANDOM URINE Routine 05/30/2024 1:27 PM EST Type 1 diabetes mellitus with peripheral neuropathy DIRECT LDL Routine 05/30/2024 11:50 AM EST Type 1 diabetes mellitus with peripheral neuropathy TSH WITH REFLEX Routine 05/30/2024 11:50 AM EST Type 1 diabetes mellitus with peripheral neuropathy ALANINE AMINOTRANSFERASE (ALT) Routine 05/30/2024 11:50 AM EST Type 1 diabetes mellitus with peripheral neuropathy ASPARTATE AMINOTRANSFERASE (AST) Routine 05/30/2024 11:50 AM EST Type 1 diabetes mellitus with peripheral neuropathy HEMOGLOBIN A1C Routine 05/30/2024 11:50 AM EST Type 1 diabetes mellitus with peripheral neuropathy VITAMIN B12 Routine 05/30/2024 11:50 AM EST Type 1 diabetes mellitus with peripheral neuropathy BASIC METABOLIC PANEL Routine 05/30/2024 11:50 AM EST Type 1 diabetes mellitus with peripheral neuropathy documented in this encounter Results * Microalbumin/creatinine ratio, random urine (05/30/2024 1:27 PM EST) URINE MICROALBUMIN <1.2 0 - 2.3 mg/dL [facility] URINE CREATININE 37 mg/dL [facility] MICROALB/CRE RATIO NOT CALCULATED 0 - 20 mg/g Cre [facility] Comment:due to Microalbumin <1.2 Urine (Urine) 05/30/2024 1:2 7 PM EST 05/30/2024 1:28 PM EST Yoselin Rich MD URINE ORDERABL ES Performing Organization Address [facility] Co de Phone Number [address] [address] * (ABNORMAL) Hemoglobin A1c (05/30/2024 11:50 AM EST) HEMOGLOBIN A1C 7.4(H) 4.3 - 5.8 % [facility] Blood 05/30/2024 11:5 0 AM EST 05/30/2024 11:53 AM EST Yoselin Rich MD LAB BLOOD CHRIS FRANKLIN Performing Organization Address [facility]/ZIP Co de Phone Number [address] [address] * TSH with reflex (05/30/2024 11:50 AM EST) TSH 3.39 0.27 - 4.20 uIU/mL [facility] Blood 05/30/2024 11:5 0 AM EST 05/30/2024 11:53 AM EST Yoselin Rich MD LAB BLOOD CHRIS FRANKLIN Performing Organization Address City/[facility]/ZIP Co de Phone Number [address] [address] * Aspartate aminotransferase (AST) (05/30/2024 11:50 AM EST) AST 32 0 - 37 U/L [facility] Blood 05/30/2024 11:5 0 AM EST 05/30/2024 11:53 AM EST Yoselin Rich MD LAB BLOOD ORDCori NOEMI [address] [address] * Alanine aminotransferase (ALT) (05/30/2024 11:50 AM EST) ALT 21 0 - 40 U/L [facility] Blood 05/30/2024 11:5 0 AM EST 05/30/2024 11:53 AM EST Yoselin Rich MD LAB BLOOD ORDCori NOEMI Performing Organization Address City/[facility]/ZIP Co de Phone Number [address] [address] * (ABNORMAL) Basic metabolic panel (05/30/2024 11:50 AM EST) SODIUM 144 133 - 146 mmol/L [facility] CHLORIDE 104 96 - 108 mmol/L [facility] POTASSIUM 5.1 3.3 - 5.1 mmol/L [facility] CO2 29 21 - 35 mmol/L [facility] BUN 14 6 - 19 mg/dL [facility] CREATININE 0.90 0.5 - 1.5 mg/dL [facility] GLUCOSE 156(H) 70 - 99 mg/dL [facility] CALCIUM 10.1 8.4 - 10.3 mg/dL [facility] EGFR 91 >59 mL/min/1.7 3m2 [facility] Comment:Estimated glomerular filtration rate calculated using the CKD-EPI refit equation. ANION GAP 16 10 - 20 mmol/L [facility] Blood 05/30/2024 11:5 0 AM EST 05/30/2024 11:53 AM EST Yoselin Rich MD LAB BLOOD CHRIS NOEMI Performing Organization Address City/[facility] Co de Phone Number [address] [address] * Vitamin B12 (05/30/2024 11:50 AM EST) VITAMIN B12 752 232 - 1,245 pg/mL [facility] Blood 05/30/2024 11:5 0 AM EST 05/30/2024 11:53 AM EST Yoselin Rich MD LAB BLOOD CHRIS NOEMI Performing Organization Address [facility] de Phone Number [address] [address] * DIRECT LDL (05/30/2024 11:50 AM EST) Direct LDL 90 <100 mg/dL [employer] [facility] [facility] Comment: (NOTE) Greatly elevated Triglycerides values (>1200 mg/dL) interfere with the dLDL assay. Desirable range <100 mg/dL for primary prevention; ?? <70 mg/dL for patients with CHD or diabetic patients with > or = 2 CHD risk factors. Blood 05/30/2024 11:5 0 AM EST 05/30/2024 11:53 AM EST Yoselin Rich MD LAB BLOOD CHRIS NOEMI Performing Organization Address [facility] de Phone Number [employer] [facility] [address] documented in this encounter Visit Diagnoses Diagnosis Type 1 diabetes mellitus with peripheral neuropathy documented in this encounter Care Teams Lion Tamer Relationship Specialty Start Date End Date Cortney Blakely MD [address] [place] [address] PCP - General Internal Medicine 09/15/22 documented as of this encounter Additional Source Comments The information contained in this document represents components of the legal health record. It is not the complete legal health record.[facility]
--- OUTSIDE RECORDS SUMMARY | 2024-06-27 13:43 | XMS_ITS | Encounter Summary ---
Author Organization [facility] Address [address] [place] [address] [place] [address] Phone Care Team Providers Care Office Equipment Mechanic Name Role Phone Cortney Blakely MD Primary Care Provider +1- [phone] Reason for Visit * Reason Comments Medication Refill Encounter Details Date Type Department Care Team (Late st Contact Info) Description 05/30/2024 Refill [facility] [address] [place] [address] [place] [address] Yoselin Rich MD [address] [place] [address] [email or web address] Medication Refill Social History Tobacco Use Types Packs/Day Years [...] on file documented as of this encounter Progress Notes * Dawna Valderrama MA - 05/30/2024 8:42 AM EST Rx Care Gap Status - Instructions for Clinical Staff (prescriber discretion applies): > At least one medication below does not meet full criteria. Please see medication-specific renewal instructions below. > Labs due: Remind patient to get lab tests done soon. > Orders needed: Please click BPA/SmartSet to enter. Lipid panel - Needs order * Visit Info Last visit: 02/28/2024 Yoselin Rich MD - Endocrinology [facility] BT > Requested f/u: Not specified Upcoming visit: 05/30/2024 Yoselin Rich MD - Endocrinology [facility] ENDOCRINOLOG[facility] BTWN ACTIONS TAKEN BY Dawna Valderrama MA - Refill protocol not met Cholesterol Medication Rx Protocol (on Diabetes Registry) - simvastatin Criteria not met; renew for up to 3 months. (unless patient is on high intensity statin, in which case LDL level may not be needed at provider discretion) Visit in the past 14 months: Yes Clinical criteria: - Lipid panel within past year: No (No prior value) No Health Maintenance Labs Overdue documented in this encounter Plan of Treatment Upcoming Encounters Date Type Department Care Team (Late st Contact Info) Description 09/11/2024 11:40 AM EDT Office Visit [facility] Endocrinology [place] [address] [place] [address] Yoselin Rich MD [address] [place] [address] [email or web address] 01/08/2025 11:20 AM EDT Office Visit [facility] Endocrinology [place] [address] [place] [address] Yoselin Rich MD [address] [place] [address] documented as of this encounter Visit Diagnoses Diagnosis Hyperlipidemia, unspecified hyperlipidemia type documented in this encounter Care Teams Office Equipment Mechanic Relationship Specialty Start Date End Date Cortney Blakely MD [facility] [place] [address] PCP - General Internal Medicine 09/15/22 documented as of this encounter Additional Source Comments The information contained in this document represents components of the legal health record. It is not the complete legal health record.[facility]
--- OUTSIDE RECORDS SUMMARY | 2024-06-27 13:43 | XMS_ITS | Clinical Summary ---
Author Organization [facility] Address [address] [address] Phone Care Team Providers Care [employer] Supervisor Name Role Phone Cortney Blakely MD Primary Care Provider +1- [phone] Allergies No known active allergies Medications Medication Sig Dispensed Refills Start Date End Date Status amLODIPine (NORVASC) 5 MG tablet Take 5 mg by mouth every evening. 08/28/19 23 Active lisinopril (PRINIVIL,ZESTRIL) 10 MG tablet Take 20 mg by mouth every morning. 07/05/19 23 Active methotrexate 2.5 MG Oral tablet Take 10 mg by mouth once a week. 09/09/19 23 Active FREESTYLE LITE Strp stripsIndications: Type 1 diabetes mellitus with diabetic neuropathy 1 each by Miscellaneous route 3 (three) times a day before meals. Dx E10.42 on insulin 300 strip 2 10/20/19 Active calcium carbonate (CALCIUM 600 ORAL) Take 1 capsule by mouth daily. Active multivit-min/folic /vit K/lycop (MEN'S 50 PLUS MULTIVITAMIN ORAL) Take 1 capsule by mouth daily. Active Medication-Free TextIndications:CB D Gummie Take 15 mg by mouth every morning. Indications: CBD Gummie Active insulin syringe-needle U-100 0.3 mL 31 gauge x 516 SyrgIndications:Ty pe 1 diabetes mellitus with diabetic neuropathy Use as directed to administer insulin daily 100 each 3 05/04/19 24 Active folic acid (FOLVITE) 1 MG tablet Take 1 tablet by mouth every morning. 08/03/19 24 Active BD ULTRA-FINE VIVIAN PEN NEEDLE 32 gauge x 5/32 NdleIndications:Ty pe 1 diabetes mellitus with diabetic neuropathy 1 each by Miscellaneous route 3 (three) times a day. 300 each 3 09/16/19 24 Active insulin aspart U-100 (NOVOLOG FLEXPEN U-100 INSULIN) 100 unit/mL (3 mL) injection penIndications:Typ e 1 diabetes mellitus with peripheral neuropathy Inject 3-10 Units under the skin 3 (three) times a day with meals. Plus 2 units to prime pen with each dose. 30 mL 3 02/28/20 24 Active simvastatin (ZOCOR) 20 MG tabletIndications: Hyperlipidemia, unspecified hyperlipidemia type TAKE 1 TABLET BY MOUTH ONCE DAILY IN THE MORNING 90 tablet 1 05/30/19 25 Active LANTUS SOLOSTAR U-100 INSULIN 100 unit/mL (3 mL) InPn injection penIndications:Typ e 1 diabetes mellitus with peripheral neuropathy 10-11 units, subcutaneously, once daily 15 mL 3 05/30/19 25 Active simvastatin (ZOCOR) 20 MG tabletIndications: Hyperlipidemia, unspecified hyperlipidemia type Take 1 tablet (20 mg total) by mouth every morning. 90 tablet 3 05/19/19 24 025 Discontinued SEMGLEE,INSULIN GLARGINE-YFGN, 100 unit/mL SolnIndications:Ty pe 1 diabetes mellitus with peripheral neuropathy Inject 10 Units under the skin daily. 30 mL 3 02/28/20 24 025 Discontinued(Fo rmulary change) Active Problems Problem Noted Date Diagnosed Date Type 1 diabetes mellitus with peripheral neuropa thy 1970 Assessment & Plan (05/30/2024 2:13 PM EST): Control reasonable based on CGM download, other than excessive, mild hypoglycemia. No severe hypoglycemia. Will shift to lantus d/t insurance coverage, advised to take 10 units daily. Advised he cut back slightly on doses of insulin @ breakfast & evening meal to help avoid lows. Will do labs. To call if hasn't heard from us within 1- 2 weeks. Continue to work on eating healthy & keeping active. To call or send in BG with problems with glycemic control. Assessment & Plan (02/28/2024 5:07 PM EST): Control suboptimal based on CGM download, with excessive, mild hypoglycemia. No severe hypoglycemia. Advised he cut back on semglee by a 1 unit to help avoid lows. Will do labs. To call if hasn't heard from us within 1-2 weeks. Continue to work on eating healthy & keeping active. To call or send in BG with problems with glycemic control. Umalb/creat up to date, normal. Discussed use of insulin pump, which he is not interested in pursuing at this time. Assessment & Plan (11/16/2023 2:14 PM EDT): Control improved but not optimal, based on CGM download, with excessive, mild hypoglycemia. No severe hypoglycemia. Advised he cut back on semglee by 1 unit to help avoid lows. Will do labs. To call if hasn't heard from us within 1-2 weeks. Continue to work on eating healthy & keeping active. To call or send in BG with problems with glycemic control. Umalb/creat up to date, normal. Assessment & Plan (08/09/2023 5:24 PM EDT): Control reasonable but not optimal, based on CGM download. No severe hypoglycemia. No pattern to glucose readings to guide rx adjustment. Advised him to be mindful of likely impact of foods/portions/activity on glucose & adjust insulin w/ meals accordingly. Will do labs. To call if hasn't heard from us within 1-2 weeks. Continue to work on eating healthy & keeping active. To call or send in BG with problems with glycemic control. Minimal tinea pedis on exam, to rx with OTC antifungal. Assessment & Plan (05/05/2023 1:37 PM EST): Control appears improved, based on CGM download. No severe hypoglycemia. Is having excessive, mild hypoglycemia. Reviewed CGM download, statistics we are looking at (time in range, variability, time low & daily readings). Based on these, advised he cut back to 10-10.5 units on basal insulin & increase his dose of insulin @ breakfast by 1 unit. Will do labs. To call if hasn't heard from us within 1-2 weeks. Continue to work on eating healthy & keeping active. To call or send in BG with problems with glycemic control. Umalb/creat up to date, minimally elevated. BP under reasonable control, on gisselle-inhibitor.. Assessment & Plan (02/01/2023 12:57 PM EDT): Control suboptimal based on review of CGM download. Denies severe lows, but often spiking up PC & then dropping precipitously. Discussed timing of humalog in relation to meals, would try to give 15 min AC in abdomen & if still spiking up PC would increase dose prior to meals likely to cause a spike in glucose. Cautioned to be careful with doses he is using to treat highs as often dropping excessively/rapidly. Will do labs. To call if hasn't heard from us within 1-2 weeks. Continue to work on eating healthy & keeping active. To call or send in BG with problems with glycemic control. Umalb/creat up to date, minimally high, BP under good control. On gisselle-inhibitor. Assessment & Plan (09/15/2022 4:58 PM EDT): Control suboptimal. No recent severe hypoglycemia. He is dropping quite a bit after treating highs, advised he cut back on dosing. No pattern to BG readings to guide rx adjustment. Advised he proceed w/ CGM as we have discussed before, will send paperwork to reliable. Can call & schedule appt w/ Lindsay to learn how to use. Continue to work on eating healthy & keeping active. To call or send in BG with problems with glycemic control. Will do labs today. To call if hasn't heard from us within 1-2 weeks. Tinea pedis on exam, to rx with OTC antifungal. BP under reasonable control (not on gisselle currently, ran out of rx when dose was increased). Essential hypertension Assessment & Plan (05/30/2024 2:12 PM EST): Well controlled today. Managed by PCP Assessment & Plan (02/28/2024 11:31 AM EST): Well controlled today. Managed by PCP Assessment & Plan (11/16/2023 2:12 PM EDT): Well controlled today. Managed by PCP Assessment & Plan (02/01/2023 12:53 PM EDT): Well controlled today. Managed by PCP Hyperlipidemia Assessment & Plan (05/05/2023 1:38 PM EST): Having some issues getting rx, PCP hasn't been getting our labs. Will look into what the issue is getting labs/notes to PCP. Will include LDL with labs & send in rx. Type 1 diabetes mellitus with hypoglycemia unawa reness Overview (09/15/2022): Hx severe hypoglycemia Assessment & Plan (05/30/2024 2:13 PM EST): No recent severe lows. Using CGM to help avoid. Assessment & Plan (02/28/2024 5:06 PM EST): No recent severe lows. Discussed importance of avoiding. Assessment & Plan (11/16/2023 2:12 PM EDT): No recent severe lows. Assessment & Plan (08/09/2023 5:23 PM EDT): No recent severe lows. Assessment & Plan (05/05/2023 1:37 PM EST): No recent severe lows. Assessment & Plan (02/01/2023 12:54 PM EDT): No recent severe hypoglycemia. Assessment & Plan (10/23/2022 2:36 PM EDT): He was shown how to set up and place the freestyle ramana 2 sensor. He put the sensor together and placed it without any issues. Reviewed how to use the ramana 2 reader. He scanned and started the sensor without any issues. He feels he will be able to continue doing this without any issues. Assessment & Plan (09/15/2022 4:57 PM EDT): As above, no recent severe lows. Will initiate CGM to help optimize control, safely. Type 1 diabetes mellitus with retinopathy Overview (09/15/2022): [facility] Assessment & Plan (05/30/2024 2:14 PM EST): Up to date with ophtho. Assessment & Plan (02/28/2024 11:32 AM EST): Up to date with ophtho. Assessment & Plan (11/16/2023 2:12 PM EDT): Scheduled for ophtho. Assessment & Plan (08/09/2023 5:23 PM EDT): Up to date with ophtho. Assessment & Plan (05/05/2023 1:37 PM EST): Up to date with ophtho. Assessment & Plan (02/01/2023 12:54 PM EDT): Up to date w/ ophtho Assessment & Plan (09/15/2022 4:58 PM EDT): Up to date w/ ophtho. Believes has had some degree of retinopathy seen which either regressed or is stable. 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, macular edema presence unspecified, unspecified retinopathy severity; Essential hypertension 05/30/2024 Orders Only [facility] [place] [address] Adan Smith MD 05/30/2024 Refill [facility] [address] [place] [address] [place] [address] Yoselin Rich MD Medication Refill from Last 3 Months Immunizations No known immunizations Social History Tobacco Use Types Packs/Day Years Used Date Smoking Tobacco: Never Passive Smoke Exposure: Never Smokeless Tobacco: Never Tobacco Cessation:Counseling Given: Not Answered Alcohol Use Standard Drinks/Week Comments Yes 3 [...] on file Sexual Orientation Not on file Last Filed Vital Signs Vital Sign Reading [...] Mass Index 24.54 05/30/2024 10:49 AM EST Plan of Treatment Upcoming Encounters Date Type Department Care Team (Late st Contact Info) Description 09/11/2024 11:40 AM EDT Office Visit [facility] Endocrinology [address] [place] [address] Yoselin Rich MD [address] [place] [address] [email or web address] 01/08/2025 11:20 AM EDT Office Visit [facility] Endocrinology [address] [place] [phone] Yoselin Rich MD [address] [place] [address] [email or web address] Health Maintenance Due Date Last Done Comments Adult Td,Tdap Booster 1950 COVID-19 VACCINE (#1) 10/07/1956 DEPRESSION SCREENING 1963 HEPATITIS B SCREENING 10/07/1969 HEPATITIS C SCREENING 10/07/1969 PNEUMOCOCCAL VACCINES (50+ years) (1 of 2 - PCV) 10/07/1970 ZOSTER VACCINES (1 of 2) 10/07/1970 COLOGUARD 10/07/1996 COLONOSCOPY 10/07/1996 COLORECTAL CANCER SCREENING 10/07/1996 FIT TEST 10/07/1996 FOBT 10/07/1996 SIGMOIDOSCOPY 10/07/1996 VIRTUAL COLONOSCOPY 10/07/1996 RSV VACCINE (1 - Risk 60-74 years 1-dose series) 2011 DIABETIC EYE EXAM 09/15/2022 INFLUENZA VACCINE (#1) 2023 BLOOD PRESSURE 11/27/2024 05/30/2024 HEMOGLOBIN A1C 11/27/2024 05/30/2024, 02/10, 11/16/2023, Additional history exists CREATININE LEVEL 05/30/2025 05/30/2024, , 02/28/2024, Additional history exists POTASSIUM LEVEL 05/30/2025 05/30/2024, 02/10, 11/16/2023, Additional history exists SMOKING STATUS SCREENING (Once After 26 Yrs) Completed 05/30/2024 HEPATITIS A VACCINES Aged Out No long er eligible based on patient's age to complete this topic HEPATITIS B VACCINES Aged Out No long er eligible based on patient's age to complete this topic HIB VACCINES Aged Out No longer eligi ble based on patient's age to complete this topic MENINGOCOCCAL VACCINES (ACWY) Aged Out No longer eligible based on patient's age to complete this topic Medical Devices Not on file Procedures Procedure Name Priority Date/Time Associated Diagnosis [...] Type 1 diabetes mellitus with peripheral neuropathy from Last 3 Months Results * Microalbumin/creatinine ratio, random urine (05/30/2024 1:27 PM EST) URINE MICROALBUMIN <1.2 0 - 2.3 mg/dL [facility] URINE CREATININE 37 mg/dL [facility] MICROALB/CRE RATIO NOT CALCULATED 0 - 20 mg/g Cre [facility] Comment:due to Microalbumin <1.2 Urine (Urine) 05/30/2024 1:2 7 PM EST 05/30/2024 1:28 PM EST Yoselin Rich MD URINE ORDERABL ES [facility] [address] [place] [address] * DIRECT LDL (05/30/2024 11:50 AM EST) Direct LDL 90 <100 mg/dL [id number] [place] [address] Comment: (NOTE) Greatly elevated Triglycerides values (>1200 mg/dL) interfere with the dLDL assay. Desirable range <100 mg/dL for primary prevention; ?? <70 mg/dL for patients with CHD or diabetic patients with > or = 2 CHD risk factors. Blood 05/30/2024 11:5 0 AM EST 05/30/2024 11:53 AM EST Yoselin Rich MD LAB BLOOD CHRIS FRANKLIN [facility] [address] [address] * TSH with reflex (05/30/2024 11:50 AM EST) Pathologist [facility] [place] TSH 3.39 0.27 - 4.20 uIU/mL [facility] Blood 05/30/2024 11:5 0 AM EST 05/30/2024 11:53 AM EST Yoselin Rich MD LAB BLOOD ORDE NOEMI [address] [address] * Alanine aminotransferase (ALT) (05/30/2024 11:50 AM EST) Pathologist [facility] ALT 21 0 - 40 U/L [facility] Blood 05/30/2024 11:5 0 AM EST 05/30/2024 11:53 AM EST Yoselin Rich MD LAB BLOOD ORDCori FRANKLIN [address] [address] * Aspartate aminotransferase (AST) (05/30/2024 11:50 AM EST) AST 32 0 - 37 U/L [facility] Blood 05/30/2024 11:5 0 AM EST 05/30/2024 11:53 AM EST Yoselin Rich MD LAB BLOOD ORDCori KEENERAY Performing Organization Address [facility]/ZIP Co de Phone Number [address] [address] * (ABNORMAL) Hemoglobin A1c (05/30/2024 11:50 AM EST) HEMOGLOBIN A1C 7.4(H) 4.3 - 5.8 % [facility] Blood 05/30/2024 11:5 0 AM EST 05/30/2024 11:53 AM EST Yoselin Rich MD LAB BLOOD CHRIS FRANKLIN Performing Organization Address [facility]/ZIP Co de Phone Number [address] [address] * Vitamin B12 (05/30/2024 11:50 AM EST) VITAMIN B12 752 232 - 1,245 pg/mL [facility] Blood 05/30/2024 11:5 0 AM EST 05/30/2024 11:53 AM EST Yoselin Rich MD LAB BLOOD ORDCori FRANKLIN Performing Organization Address [facility] Co de Phone Number [address] [address] * (ABNORMAL) Basic metabolic panel (05/30/2024 11:50 AM EST) SODIUM 144 133 - 146 mmol/L [facility] CHLORIDE 104 96 - 108 mmol/L [facility] POTASSIUM 5.1 3.3 - 5.1 mmol/L [facility] CO2 29 21 - 35 mmol/L [facility] BUN 14 6 - 19 mg/dL [facility] CREATININE 0.90 0.5 - 1.5 mg/dL [facility] GLUCOSE 156(H) 70 - 99 mg/dL [facility] CALCIUM 10.1 8.4 - 10.3 mg/dL [facility] EGFR 91 >59 mL/min/1.7 3m2 [facility] Comment:Estimated glomerular filtration rate calculated using the CKD-EPI refit equation. ANION GAP 16 10 - 20 mmol/L [facility] Blood 05/30/2024 11:5 0 AM EST 05/30/2024 11:53 AM EST Yoselin Rich MD LAB BLOOD CHRIS Boyd Organization Address City/State/ZIP Co de Phone Number [facility] [address] [place] [address] from Last 3 Months Care Teams [employer] Supervisor Relationship Specialty Start Date End Date Cortney Blakely MD [facility] [place] [address] PCP - General Internal Medicine 09/15/22 Additional Source Comments The information contained in this document represents components of the legal health record. It is not the complete legal health record.[facility]
--- OUTSIDE RECORDS SUMMARY | 2024-06-27 13:43 | XMS_ITS | Encounter Summary ---
Author Organization [facility] Address [address] [place] [address] Phone Care Team Providers Care Policy Value Calculator Name Role Phone Cortney Blakely MD Primary Care Provider +1- [phone] Encounter Details Date Type Department Care Team (Late st Contact Info) Description 05/30/2024 Orders Only [facility]ology [address] [place] [address] Adan Smith MD [address] [address] Social History Tobacco Use Types Packs/Day Years [...] on file documented as of this encounter Plan of Treatment Upcoming Encounters Date Type Department Care Team (Late st Contact Info) Description 09/11/2024 11:40 AM EDT Office Visit [facility] Endocrinology [address] [place] [phone] Yoselin Rich MD [address] [address] 01/08/2025 11:20 AM EDT Office Visit [facility] Endocrinology [address] [address] Yoselin Rich MD [address] [address] [email or web address] documented as of this encounter Procedures Procedure Name Priority Date/Time Associated Diagnosis Comments COMPREHENSIVE METABOLIC PANEL Routine 02/29/2024 11:30 AM EST CBC AND DIFFERENTIAL Routine 02/29/2024 11:30 AM EST C-REACTIVE PROTEIN Routine 02/29/2024 11 :30 AM EST documented in this encounter Results * CBC and differential (02/29/2024 11:30 AM EST) Blood Adan Smith MD LAB BLO OD ORDERABLES * Comprehensive metabolic panel (02/29/2024 11:30 AM EST) Adan Smith MD LAB BLO OD ORDERABLES * C-Reactive Protein (02/29/2024 11:30 AM EST) Adan Smith MD LAB BLO OD ORDERABLES documented in this encounter Visit Diagnoses Not on filedocumented in this encounter Care Teams Policy Value Calculator Relationship Specialty Start Date End Date Cortney Blakely MD [address] [facility] [place] [address] PCP - General Internal Medicine 09/15/22 documented as of this encounter Additional Source Comments The information contained in this document represents components of the legal health record. It is not the complete legal health record.[facility]
== END 2024-06-27 11:53 | disposition home or self-care (01) ==
PROVIDERS: PCP Internal Medicine; Visit Provider Physician Assistant
DX: S00.452A Superficial foreign body of left ear, initial encounter (principal); H60.392 Other infective otitis externa, left ear

== ENCOUNTER → 2024-06-27 11:17 | Outpatient (BNVA) | payer MEDICARE, MEDICAID, SELFPAY | PROVIDERS: PCP Internal Medicine | DX: S00.452A Superficial foreign body of left ear, initial encounter (principal); H60.392 Other infective otitis externa, left ear | CPT/HCPCS: 99212 ==

== ENCOUNTER 2024-07-17 13:01 | Outpatient (AMB) | payer MEDICARE, MEDICAID, SELFPAY ==
[2024-07-17 13:06] VITALS: BP 140/92; PULSE 72; O2SAT 97
--- NOTE | 2024-07-17 13:06 | AM.OFFWIN_ITS ---
Intake Vital Signs 07/17/24 13:06 Weight 164 lb BP 140/92 H Blood Pressure Location Lt brachial Position Sitting Pulse 72 Pulse Source Pulse Oximeter Pulse Oximetry (%) 97 Oxygen Delivery Method Room Air Intake Visit Reasons: EP LT ear pain Intake Note: Patient here for left ear pain that is still present after a couple of weeks. Patient Tobacco Use Status: Never used Tobacco Allergies No Known Allergies Allergy (Verified 06/27/24 11:25) HPI HPI Comments History of Present Illness Details 73 y/o Male patient who presents to the walk in clinic with c/o Left Ear pain. He had a FB removed from that Ear 06/27 and treated for Otitis Externa with Abx Drops. Pt reports that Pain is still there. [facility] Medical History (Updated 07/17/24 @ 13:38 by Taylor Barcenas NP) Fluid level behind tympanic membrane of both ears Hx of adenomatous polyp of colon Sacroiliac joint pain Normocytic normochromic anemia Tubular adenoma of colon Essential hypertension Type 1 diabetes mellitus with background retinopathy Dyslipidemia Inflammatory arthritis Surgical History Hx of colonoscopy No pertinent past surgical history Family History Father CVD (cardiovascular disease) Diabetes mellitus Mother Arthritis Maternal Aunt Diabetes mellitus Paternal Aunt Diabetes mellitus Sister No problems noted. Son No problems noted. Son No problems noted. Brother No problems noted. Brother No problems noted. Brother No problems noted. Brother No problems noted. Social History Housing: House Alcohol intake: current Alcohol intake frequency: a few times a month Alcohol type: beer Patient Tobacco Use Status: Never used Tobacco e-Cigarette/Vaping Use: Never Used Second Hand Smoke Exposure: No service: No Current occupational status: retired Cognitive needs: No Hearing needs: Yes Vision needs: Yes Review of Systems Const All systems reviewed & are unremarkable except as noted in HPI and below Physical Exam Vital Signs: Last Vital Signs Pulse 72 07/17/24 13:06 BP 140/92 H 07/17/24 13:06 Pulse Ox 97 07/17/24 13:06 Oxygen Delivery Method Room Air 07/17/24 13:06 Const General: no acute distress Nutritional Appearance: well nourished Orientation/consciousness: patient oriented x3 HEENT Head: Yes normocephalic Ears: external ears normal and TM abnormal bulging bilateral and with fluid behind the TM bilateral General nose exam: Normal external nose present Mouth: moist mucous membranes Neuro General: patient oriented x3 Psych Speech and movement: Normal speech and movement present Assessment & Plan Assessment & Plan (1) Fluid level behind tympanic membrane of both ears: Code(s): H65.93 - Unspecified nonsuppurative otitis media, bilateral Plan: Ordered Cetirizine 10 mg BID for 1 week. TM clear and Intact, no Infection seen. Acetaminophen for pain relief. RTC if not better. Medications: New cetirizine (Zyrtec) 10 mg PO DAILY 30 tabs 0RF H65.93 - Unspecified nonsuppurative otitis media, bilateral Coding Level of Care Code Est Pt Level 4 (09999) Diagnoses Fluid level behind tympanic membrane of both ears H65.93 Time Spent (min) 20
--- OUTSIDE RECORDS SUMMARY | 2024-07-17 15:27 | XMS_ITS | Clinical Summary ---
Author Organization [facility] Address [address] [address] Phone Care Team Providers Care Wine Specialist Name Role Phone Cortney Blakely MD Primary Care Provider [phone]- [phone] Allergies No known active allergies Medications Medication Sig Dispensed Refills Start Date End Date Status amLODIPine (NORVASC) 5 MG tablet Take 5 mg by mouth every evening. 08/27/2022 Active lisinopril (PRINIVIL,ZESTRIL) 10 MG tablet Take 20 mg by mouth every morning. 07/04/2022 Active methotrexate 2.5 MG Oral tablet Take 10 mg by mouth once a week. 09/08/2022 Active FREESTYLE LITE Strp stripsIndications:Ty pe 1 diabetes mellitus with diabetic neuropathy 1 each by Miscellaneous route 3 (three) times a day before meals. Dx E10.42 on insulin 300 strip 2 10/19/2022 Active calcium carbonate (CALCIUM 600 ORAL) Take 1 capsule by mouth daily. Active multivit-min/folic/v it K/lycop (MEN'S 50 PLUS MULTIVITAMIN ORAL) Take 1 capsule by mouth daily. Active Medication-Free TextIndications:CBD Gummie Take 15 mg by mouth every morning. Indications: CBD Gummie Active insulin syringe-needle U-100 0.3 mL 31 gauge x 5/16 SyrgIndications:Type 1 diabetes mellitus with diabetic neuropathy Use as directed to administer insulin daily 100 each 3 05/04/2023 Active folic acid (FOLVITE) 1 MG tablet Take 1 tablet by mouth every morning. 08/03/2023 Active BD ULTRA-FINE VIVIAN PEN NEEDLE 32 gauge x 5/32 NdleIndications:Type 1 diabetes mellitus with diabetic neuropathy 1 each by Miscellaneous route 3 (three) times a day. 300 each 3 09/16/2023 Active insulin aspart U-100 (NOVOLOG FLEXPEN U-100 INSULIN) 100 unit/mL (3 mL) injection penIndications:Type 1 diabetes mellitus with peripheral neuropathy Inject 3-10 Units under the skin 3 (three) times a day with meals. Plus 2 units to prime pen with each dose. 30 mL 3 02/28/2024 Active simvastatin (ZOCOR) 20 MG tabletIndications:Hy perlipidemia, unspecified hyperlipidemia type TAKE 1 TABLET BY MOUTH ONCE DAILY IN THE MORNING 90 tablet 1 05/30/2024 Active LANTUS SOLOSTAR U-100 INSULIN 100 unit/mL (3 mL) InPn injection penIndications:Type 1 diabetes mellitus with peripheral neuropathy 10-11 units, subcutaneously, once daily 15 mL 3 05/30/2024 Active Active Problems Problem Noted Date Diagnosed Date [...] 1 diabetes mellitus with retinopathy Overview (09/15/2022): [facility] Assessment & Plan (05/30/2024 2:14 [...] PM EST Hospital Encounter [facility] [address] [facility] [place] [address] Yoselin Rich MD Discharge Disposition: Home or Self Care 05/30/2024 11:00 AM EST Office Visit [facility] [place] [address] [facility] [place] [phone] Yoselin Rich MD Type 1 diabetes mellitus with peripheral neuropathy (Primary Dx); 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; 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, macular edema presence unspecified, unspecified retinopathy severity; Essential hypertension 05/30/2024 Orders Only [facility] [address] [place] [address] Adan Smith MD 05/30/2024 Refill [facility] [address] [place] [address] Yoselin Rich MD Medication Refill from Last [...] Description 09/11/2024 11:40 AM EDT Office Visit [facility] [address] [phone] Yoselin Rich MD [address] [place] [id number] 01/08/2025 11:20 AM EDT Office Visit [facility] [place] [address] [place] [phone] Yoselin Rich MD [address] [place] [phone] (work) [email or web address] Health Maintenance Due Date Last Done Comments [...] URINE MICROALBUMIN <1.2 0 - 2.3 mg/dL [facility] URINE CREATININE 37 mg/dL [facility] MICROALB/CRE RATIO NOT CALCULATED 0 - 20 mg/g Cre [facility] Comment:due to Microalbumin <1.2 Urine (Urine) 05/30/2024 1:2 7 PM EST 05/30/2024 1:28 PM EST Yoselin Rich MD URINE ORDERABL ES [address] [address] * DIRECT LDL (05/30/2024 11:50 AM EST) Direct LDL 90 <100 mg/dL [employer] [facility] Comment: (NOTE) Greatly elevated Triglycerides values (>1200 mg/dL) interfere with the dLDL assay. Desirable range <100 mg/dL for primary prevention; ?? <70 mg/dL for patients with CHD or diabetic patients with > or = 2 CHD risk factors. Blood 05/30/2024 11:5 0 AM EST 05/30/2024 11:53 AM EST Yoselin Rich MD LAB BLOOD CHRIS FRANKLIN [employer] [facility] [address] [facility] [address] [address] * TSH with reflex (05/30/2024 11:50 AM EST) TSH 3.39 0.27 - 4.20 uIU/mL [facility] Blood 05/30/2024 11:5 0 AM EST 05/30/2024 11:53 AM EST Yoselin Rich MD LAB BLOOD CHRIS FRANKLIN Performing Organization Address [facility]/ZIP Co de Phone Number [address] [address] * Alanine aminotransferase (ALT) (05/30/2024 11:50 AM EST) ALT 21 0 - 40 U/L [facility] Blood 05/30/2024 11:5 0 AM EST 05/30/2024 11:53 AM EST Yoselin Rich MD LAB BLOOD CHRIS FRANKLIN Performing Organization Address City/[facility]/ZIP Co de Phone Number [address] [address] * Aspartate aminotransferase (AST) (05/30/2024 11:50 AM EST) AST 32 0 - 37 U/L [facility] Blood 05/30/2024 11:5 0 AM EST 05/30/2024 11:53 AM EST Yoselin Rich MD LAB BLOOD ORDCori FRANKLIN Performing Organization Address City/[facility]/ZIP Co de Phone Number [address] [address] * (ABNORMAL) Hemoglobin A1c (05/30/2024 11:50 AM EST) HEMOGLOBIN A1C 7.4(H) 4.3 - 5.8 % [facility] Blood 05/30/2024 11:5 0 AM EST 05/30/2024 11:53 AM EST Yoselin Rich MD LAB BLOOD ORDCori FRANKLIN [address] [address] * Vitamin B12 (05/30/2024 11:50 AM EST) Pathologist [facility] VITAMIN B12 752 232 - 1,245 pg/mL [facility] Blood 05/30/2024 11:5 0 AM EST 05/30/2024 11:53 AM EST Yoselin Rich MD LAB BLOOD ORDCori FRANKLIN [address] [address] * (ABNORMAL) Basic metabolic panel (05/30/2024 11:50 AM EST) SODIUM 144 133 - 146 mmol/L [facility] CHLORIDE 104 96 - 108 mmol/L [facility] POTASSIUM 5.1 3.3 - 5.1 mmol/L [facility] CO2 29 21 - 35 mmol/L [facility] BUN 14 6 - 19 mg/dL [facility] CREATININE 0.90 0.5 - 1.5 mg/dL [facility] GLUCOSE 156(H) 70 - 99 mg/dL [facility] CALCIUM 10.1 8.4 - 10.3 mg/dL [facility] EGFR 91 >59 mL/min/1.7 3m2 [facility] Comment:Estimated glomerular filtration rate calculated using the CKD-EPI refit equation. ANION GAP 16 10 - 20 mmol/L [facility] Blood 05/30/2024 11:5 0 AM EST 05/30/2024 11:53 AM EST Yoselin Rich MD LAB BLOOD CHRIS Boyd Organization Address City/State/ZIP Co de Phone Number [facility] [address] [place] [address] from Last 3 Months Care Teams Wine Specialist Relationship Specialty Start Date End Date Cortney Blakely MD [address] [facility] [place] [address] PCP - General Internal Medicine 09/15/22 Additional Source Comments The information contained in this document represents components of the legal health record. It is not the complete legal health record.[facility]
== END 2024-07-17 13:53 | disposition home or self-care (01) ==
PROVIDERS: PCP Internal Medicine; Visit Provider Nurse Practitioner Family
DX: H65.93 Unspecified nonsuppurative otitis media, bilateral (principal)

== ENCOUNTER → 2024-07-17 13:01 | Outpatient (BNVA) | payer MEDICARE, MEDICAID, SELFPAY | PROVIDERS: PCP Internal Medicine; Visit Provider Nurse Practitioner Family | DX: H65.93 Unspecified nonsuppurative otitis media, bilateral (principal) | CPT/HCPCS: 99212 ==

== ENCOUNTER 2024-07-27 12:36 | Outpatient (AMB) | payer MEDICARE, MEDICAID, SELFPAY ==
--- NOTE | 2024-07-27 13:19 | MHC.OFFWIV ---
Intake Vital Signs 07/27/24 13:21 Weight 164 lb BP 134/78 Blood Pressure Location Rt brachial Position Sitting Pulse 79 Pulse Source Pulse Oximeter Pulse Oximetry (%) 98 Oxygen Delivery Method Room Air Intake Visit Reasons: EP LT ear pain Intake Note: Patient here for left ear pain. Patient Tobacco Use Status: Never used Tobacco Allergies No Known Allergies Allergy (Verified 07/27/24 13:21) Do you need a note to return to daycare/school/sports/work: No HPI HPI Comments History of Present Illness Details 73 y/o Male patient who presents to the walk in clinic with c/o Left Ear pain. He had a FB removed from that Ear 06/27 and treated for Otitis Externa with Abx Drops. He returned to Wk in clinic 07/17 for similar concern and Diagnosed with Fluid behind TM. He was advised to use Claritin 10 BID for 1 week. Today Pt reports no relief, still had pain Left Ear. Pt reprts in the Past 3 weeks, he has been cleaning Mold up in his Attic and he wore Mask and Goggles all the time. [facility] Medical History (Updated 07/17/24 @ 13:38 by Taylor Barcenas NP) Fluid level behind tympanic membrane of both ears Hx of adenomatous polyp of colon Sacroiliac joint pain Normocytic normochromic anemia Tubular adenoma of colon Essential hypertension Type 1 diabetes mellitus with background retinopathy Dyslipidemia Inflammatory arthritis Surgical History Hx of colonoscopy No pertinent past surgical history Family History Father CVD (cardiovascular disease) Diabetes mellitus Mother Arthritis Maternal Aunt Diabetes mellitus Paternal Aunt Diabetes mellitus Sister No problems noted. Son No problems noted. Son No problems noted. Brother No problems noted. Brother No problems noted. Brother No problems noted. Brother No problems noted. Social History Housing: House Alcohol intake: current Alcohol intake frequency: a few times a month Alcohol type: beer Patient Tobacco Use Status: Never used Tobacco e-Cigarette/Vaping Use: Never Used Second Hand Smoke Exposure: No service: No Current occupational status: retired Cognitive needs: No Hearing needs: Yes Vision needs: Yes Review of Systems Const All systems reviewed & are unremarkable except as noted in HPI and below Physical Exam Vital Signs: Last Vital Signs Pulse 79 07/27/24 13:21 BP 134/78 07/27/24 13:21 Pulse Ox 98 07/27/24 13:21 Oxygen Delivery Method Room Air 07/27/24 13:21 Const Orientation/consciousness: patient oriented x3 HEENT Head: Yes normocephalic Ears: external ears normal and TM abnormal bulging bilateral and with fluid behind the TM bilateral Neuro General: patient oriented x3, gait normal and moves all extremities Psych Speech and movement: Normal speech and movement present Assessment & Plan Assessment & Plan (1) Fluid level behind tympanic membrane of both ears: Code(s): H65.93 - Unspecified nonsuppurative otitis media, bilateral Plan: Ordered Small Dose of Prednisone for 10 days. Continue Taking Cetirizine BID F/U with PCP Medications: New prednisone 20 mg PO DAILY 10 tabs 0RF H65.93 - Unspecified nonsuppurative otitis media, bilateral Refilled cetirizine (Zyrtec) 10 mg PO DAILY 30 tabs 0RF H65.93 - Unspecified nonsuppurative otitis media, bilateral Coding Level of Care Code Est Pt Level 4 (23702) Diagnoses Fluid level behind tympanic membrane of both ears H65.93 Time Spent (min) 20
[2024-07-27 13:21] VITALS: BP 134/78; PULSE 79; O2SAT 98
== END 2024-07-27 14:35 | disposition home or self-care (01) ==
PROVIDERS: PCP Internal Medicine; Visit Provider Nurse Practitioner Family
DX: H65.93 Unspecified nonsuppurative otitis media, bilateral (principal)

== ENCOUNTER → 2024-07-27 12:36 | Outpatient (BNVA) | payer MEDICARE, MEDICAID, SELFPAY | PROVIDERS: PCP Internal Medicine; Visit Provider Nurse Practitioner Family | DX: H65.93 Unspecified nonsuppurative otitis media, bilateral (principal) | CPT/HCPCS: 99212 ==

== ENCOUNTER 2024-08-01 13:11 | Outpatient (REF) | payer MEDICARE, MEDICAID, SELFPAY ==
--- OUTSIDE RECORDS SUMMARY | 2024-08-01 15:39 | XMS_ITS | Clinical Summary ---
Author Organization [facility] Address [address] [address] Phone Care Team Providers Care Debug Technician Name Role Phone Cortney Blakely MD Primary Care Provider +1- [phone] Allergies No known active allergies Medications Medication [...] 1 diabetes mellitus with retinopathy Overview (09/15/2022): [facility] Assessment & Plan (05/30/2024 2:14 [...] PM EST Hospital Encounter [facility] [address] [facility] [address] Yoselin Rich MD Discharge Disposition: Home or Self Care 05/30/2024 11:00 AM EST Office Visit [facility] [place] [address] [place] [address] Yoselin Rich MD Type 1 diabetes mellitus with peripheral neuropathy (Primary Dx); 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; 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, macular edema presence unspecified, unspecified retinopathy severity; Essential hypertension 05/30/2024 Orders Only [facility] [address] [place] [address] Adan Smith MD 05/30/2024 Refill [facility] [address] [place] [address] Yoselin Rich MD Medication Refill from Last [...] Description 09/11/2024 11:40 AM EDT Office Visit [facility] [address] [phone] Yoselin Rich MD [address] [place] [address] 01/08/2025 11:20 AM EDT Office Visit [facility] [place] [address] [place] [phone] Yoselin Rich MD [address] [place] [phone] (work) Health Maintenance Due Date Last Done Comments [...] URINE MICROALBUMIN <1.2 0 - 2.3 mg/dL [facility] URINE CREATININE 37 mg/dL [facility] MICROALB/CRE RATIO NOT CALCULATED 0 - 20 mg/g Cre [facility] Comment:due to Microalbumin <1.2 Urine (Urine) 05/30/2024 1:2 7 PM EST 05/30/2024 1:28 PM EST Yoselin Rich MD URINE ORDERABL ES [address] [address] * DIRECT LDL (05/30/2024 11:50 AM EST) Direct LDL 90 <100 mg/dL [facility] Comment: (NOTE) Greatly elevated Triglycerides values (>1200 mg/dL) interfere with the dLDL assay. Desirable range <100 mg/dL for primary prevention; ?? <70 mg/dL for patients with CHD or diabetic patients with > or = 2 CHD risk factors. Blood 05/30/2024 11:5 0 AM EST 05/30/2024 11:53 AM EST Yoselin Rich MD LAB BLOOD CHRIS FRANKLIN [employer] [facility] [address] [facility] [address] [address] [[email or web address]] * TSH with reflex (05/30/2024 11:50 AM EST) TSH 3.39 0.27 - 4.20 uIU/mL [facility] Blood 05/30/2024 11:5 0 AM EST 05/30/2024 11:53 AM EST Yoselin Rich MD LAB BLOOD CHRIS FRANKLIN Performing Organization Address [facility]/ZIP Co de Phone Number [address] [address] * Alanine aminotransferase (ALT) (05/30/2024 11:50 AM EST) ALT 21 0 - 40 U/L [facility] Blood 05/30/2024 11:5 0 AM EST 05/30/2024 11:53 AM EST Yoselin Rich MD LAB BLOOD CHRIS FRANKLIN Performing Organization Address City/[facility]/ZIP Co de Phone Number [address] [address] * Aspartate aminotransferase (AST) (05/30/2024 11:50 AM EST) AST 32 0 - 37 U/L [facility] Blood 05/30/2024 11:5 0 AM EST 05/30/2024 11:53 AM EST Yoselin Rich MD LAB BLOOD ORDCori FRANKLIN Performing Organization Address City/[facility]/ZIP Co de Phone Number [address] [address] * (ABNORMAL) Hemoglobin A1c (05/30/2024 11:50 AM EST) HEMOGLOBIN A1C 7.4(H) 4.3 - 5.8 % [facility] Blood 05/30/2024 11:5 0 AM EST 05/30/2024 11:53 AM EST Yoselin Rich MD LAB BLOOD ORDCori FRANKLIN [address] [address] * Vitamin B12 (05/30/2024 11:50 AM EST) Pathologist [facility] VITAMIN B12 752 232 - 1,245 pg/mL [facility] Blood 05/30/2024 11:5 0 AM EST 05/30/2024 11:53 AM EST Yoselin Rich MD LAB BLOOD ORDCori FRANKLIN [address] [address] * (ABNORMAL) Basic metabolic panel (05/30/2024 11:50 AM EST) SODIUM 144 133 - 146 mmol/L [facility] CHLORIDE 104 96 - 108 mmol/L [facility] POTASSIUM 5.1 3.3 - 5.1 mmol/L [facility] CO2 29 21 - 35 mmol/L [facility] BUN 14 6 - 19 mg/dL [facility] CREATININE 0.90 0.5 - 1.5 mg/dL [facility] GLUCOSE 156(H) 70 - 99 mg/dL [facility] CALCIUM 10.1 8.4 - 10.3 mg/dL [facility] EGFR 91 >59 mL/min/1.7 3m2 [facility] Comment:Estimated glomerular filtration rate calculated using the CKD-EPI refit equation. ANION GAP 16 10 - 20 mmol/L [facility] Blood 05/30/2024 11:5 0 AM EST 05/30/2024 11:53 AM EST Yoselin Rich MD LAB BLOOD CHRIS Boyd Organization Address City/State/ZIP Co de Phone Number [facility] [address] [place] [address] from Last 3 Months Care Teams Debug Technician Relationship Specialty Start Date End Date Cortney Blakely MD [address] [place] [address] PCP - General Internal Medicine 09/15/22 Additional Source Comments The information contained in this document represents components of the legal health record. It is not the complete legal health record.[facility]
[2024-08-01 16:12] LABS: MANUAL DIFF FLAG NO
[2024-08-01 16:26] LABS: Basophils Percent Auto 0.3 % (0-2); Eosinophils Percent Auto 0.1 % (0-4); Hematocrit 39.1 % (42.0-52.0); Hemoglobin 13.2 g/dl (14.0-18.0); Imm Gran Abs Auto 0.04 X10*3/uL (0.00-0.03); Imm Gran Pct Auto 0.4 % (0.0-0.4); Lymphocytes Absolute Auto 1.9 X10*3/uL (1.2-4.9); Lymphocytes Percent Auto 18.4 % (20-40); Mean Corpuscular HGB Conc 33.8 g/dl (31.0-36.0); Mean Corpuscular Hemoglobin 29.8 pg (27.0-33.0); Mean Corpuscular Volume 88.3 fL (80.0-98.0); Mean Platelet Volume 11.4 fL (9.4-12.4); Monocytes Absolute Auto 0.2 X10*3/uL (0.1-1.2); Monocytes Percent Auto 2.1 % (2-11); Neutrophils Percent Auto 78.7 % (45-73); Platelet Count 297 X10*3/uL (160-400); Red Blood Count 4.43 X10*6/uL (4.60-5.80); Red Cell Distribution Width 14.9 % (11.0-16.0); White Blood Count 10.1 X10*3/uL (4.8-10.8)
[2024-08-01 17:01] LABS: Erythrocyte Sedimentation Rate 3 MM/HR (0-15)
[2024-08-01 19:58] LABS: Alanine Aminotransferase 41 U/L (0-40); Albumin Level 4.2 g/dL (3.5-5.0); Anion Gap 14 (12-20); Aspartate Amino Transferase 32 U/L (5-37); Bilirubin Total 0.5 mg/dL (0.0-1.0); Blood Urea Nitrogen 18 mg/dL (9-16); C Reactive Protein 0.15 mg/dL (< or = 0.50); Calcium 9.8 mg/dL (8.4-10.2); Carbon Dioxide 27 mmol/L (22-29); Chloride 103 mmol/L (96-108); Estimated Glomerular Filt Rate > 60; Glucose Random 90 mg/dL (60-115); Potassium 4.3 mmol/L (3.3-5.1); Sodium 140 mmol/L (135-145)
[2024-08-01 20:18] LABS: Alkaline Phosphatase 78 U/L (39-117)
== END 2024-08-01 13:12 | disposition home or self-care (01) ==
LOC: HO.HMGCLDS 13:11
PROVIDERS: PCP Internal Medicine; Visit Provider Student in an Organized Health Care Education/Training Program
DX: M06.00 Rheumatoid arthritis without rheumatoid factor, unspecified site (principal); Z79.899 Other long term (current) drug therapy
CPT/HCPCS: 36415; 80053; 85025; 85652; 86140

== ENCOUNTER 2024-08-14 10:17 | Outpatient (REF) | payer MEDICARE, MEDICAID, SELFPAY ==
[2024-08-14 13:17] LABS: MANUAL DIFF FLAG NO
[2024-08-14 13:26] LABS: Basophils Percent Auto 0.5 % (0-2); Eosinophils Absolute Auto 0.2 X10*3/uL (0.0-0.4); Eosinophils Percent Auto 1.9 % (0-4); Hematocrit 41.8 % (42.0-52.0); Hemoglobin 13.5 g/dl (14.0-18.0); Imm Gran Abs Auto 0.02 X10*3/uL (0.00-0.03); Imm Gran Pct Auto 0.3 % (0.0-0.4); Lymphocytes Absolute Auto 2.6 X10*3/uL (1.2-4.9); Mean Corpuscular HGB Conc 32.3 g/dl (31.0-36.0); Mean Corpuscular Hemoglobin 29.5 pg (27.0-33.0); Mean Corpuscular Volume 91.3 fL (80.0-98.0); Mean Platelet Volume 12.4 fL (9.4-12.4); Monocytes Absolute Auto 0.8 X10*3/uL (0.1-1.2); Monocytes Percent Auto 9.4 % (2-11); Neutrophils Absolute Auto 4.5 x10*3/uL (2.0-8.3); Neutrophils Percent Auto 55.9 % (45-73); Platelet Count 194 X10*3/uL (160-400); Red Blood Count 4.58 X10*6/uL (4.60-5.80); Red Cell Distribution Width 15.3 % (11.0-16.0)
[2024-08-14 13:50] LABS: Alanine Aminotransferase 35 U/L (0-40); Albumin Level 4.4 g/dL (3.5-5.0); Alkaline Phosphatase 72 U/L (39-117); Anion Gap 12 (12-20); Aspartate Amino Transferase 34 U/L (5-37); Bilirubin Total 0.5 mg/dL (0.0-1.0); Blood Urea Nitrogen 19 mg/dL (9-16); C Reactive Protein 0.14 mg/dL (< or = 0.50); Calcium 9.6 mg/dL (8.4-10.2); Carbon Dioxide 26 mmol/L (22-29); Chloride 106 mmol/L (96-108); Estimated Glomerular Filt Rate > 60; Glucose Random 100 mg/dL (60-115); Potassium 4.2 mmol/L (3.3-5.1); Sodium 140 mmol/L (135-145); Total Protein 7.2 g/dL (6.5-8.0)
[2024-08-14 14:17] LABS: Erythrocyte Sedimentation Rate 3 MM/HR (0-15)
== END 2024-08-14 10:18 | disposition home or self-care (01) ==
LOC: HO.HMGCLDS 10:17
PROVIDERS: Student in an Organized Health Care Education/Training Program; PCP Internal Medicine; Visit Provider Internal Medicine Rheumatology
DX: R21 Rash and other nonspecific skin eruption (principal); M06.00 Rheumatoid arthritis without rheumatoid factor, unspecified site; Z79.899 Other long term (current) drug therapy
CPT/HCPCS: 36415; 80053; 85025; 85652; 86140

== ENCOUNTER 2024-08-15 10:08 | Outpatient (AMB) | payer MEDICARE, MEDICAID, SELFPAY ==
--- NOTE | 2024-08-15 10:10 | MHC.OFFVIS ---
Vital Signs 08/15/24 10:11 Height 5 ft 7 in Weight 162 lb 7.691 oz BMI 25.4 BP 130/80 Blood Pressure Location Rt brachial Position Sitting Pulse 74 Pulse Source Pulse Oximeter Pulse Oximetry (%) 99 Oxygen Delivery Method Room Air Intake Visit Reasons: RA Intake Note: Patient presents for RA. Allergies No Known Allergies Allergy (Verified 08/15/24 10:12) HPI HPI RA: Details: He was treated for possible left ear infection with prednisone 20mg qd 10 days. He bought [employer] Medical History Fluid level behind tympanic membrane of both ears Hx of adenomatous polyp of colon Sacroiliac joint pain Normocytic normochromic anemia Tubular adenoma of colon Essential hypertension Type 1 diabetes mellitus with background retinopathy Dyslipidemia Inflammatory arthritis Surgical History Hx of colonoscopy No pertinent past surgical history Family History Father CVD (cardiovascular disease) Diabetes mellitus Mother Arthritis Maternal Aunt Diabetes mellitus Paternal Aunt Diabetes mellitus Sister No problems noted. Son No problems noted. Son No problems noted. Brother No problems noted. Brother No problems noted. Brother No problems noted. Brother No problems noted. Social History Housing: House Alcohol intake: current Alcohol intake frequency: a few times a month Alcohol type: beer Patient Tobacco Use Status: Never used Tobacco e-Cigarette/Vaping Use: Never Used Second Hand Smoke Exposure: No service: No Current occupational status: retired Cognitive needs: No Hearing needs: Yes Vision needs: Yes Review of Systems Const All systems reviewed & are unremarkable except as noted in HPI and below Physical Exam Vital Signs: Last Vital Signs Pulse 74 08/15/24 10:11 BP 130/80 08/15/24 10:11 Pulse Ox 99 08/15/24 10:11 Oxygen Delivery Method Room Air 08/15/24 10:11 BMI result Body Mass Index 25.4 Const Other: General: Comfortable CVS: RRR Respiratory: clear to auscultation bilaterally. 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 He has skin tightening of lower extremities up to knees. No tightening of chest, abdomen, back or face. MSK: No tender joints. No synovitis. 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 Normal range of motion of upper extremity and lower extremities. No MTP tenderness. Assessment & Plan Assessment & Plan (1) Seronegative rheumatoid arthritis: Comment: In clinical remission on monotherapy with methotrexate. On exam he has sclerodactyly with skin tightening of lower extremities up to knees representing limited cutaneous systemic scleroderma. Rheumatology history: Seronegative presenting with inflammatory arthritis in his hands. dx 2016 MR hand showing synovitis and tenosynovitis. on MTX 17.5 mg since 2017 advanced to 20 mg due to synovitis 2020, reduced to 15 mg 09/2021, reduced to 10 mg 07/2023. Code(s): M06.00 - Rheumatoid arthritis without rheumatoid factor, unspecified site Category: Medical Plan: Continue methotrexate 10 mg once weekly Continue folic acid 1 mg daily Labs for disease and drug monitoring reviewed 08/2024. TB test is needed. T spot ordered Lab requisition given to patient to have done in 3 months in [place]. Return to clinic in 4 months (2) Systemic sclerosis with limited cutaneous involvement: Comment: Clinical diagnosis. He does not have Raynaud's phenomenon, dysphagia or telangiectasia on exam. We discussed diagnosis. He has been on methotrexate since 2018, which also controls cutaneous disease. Code(s): M34.9 - Systemic sclerosis, unspecified Category: Medical Plan: Lab workup ordered Continue methotrexate and folic acid as above. Drug monitoring above. Return to clinic in 4 months (3) technician terminal and repeater methotrexate user: Code(s): Z79.899 - Other mcc (current) drug therapy Category: Medical Plan: See above (4) Rash and other nonspecific skin eruption: Code(s): R21 - Rash and other nonspecific skin eruption Category: Medical Plan: See above Orders: Orders Scleroderma 70 Antibody Today R21 - Rash and other nonspecific skin eruption Anti-Centromere B Antibodies Today R21 - Rash and other nonspecific skin eruption Alanine Aminotransferase 3 Months Z79.60 - technician terminal and repeater (current) use of unspecified immunomodulators and immunosuppressants T Spot TB Today M06.00 - Rheumatoid arthritis without rheumatoid factor, unspecified site, Z79.899 - Other mcc (current) drug therapy Cyclic Citrullinated Peptide Today M06.00 - Rheumatoid arthritis without rheumatoid factor, unspecified site, R21 - Rash and other nonspecific skin eruption Rheumatoid Factor Today M06.00 - Rheumatoid arthritis without rheumatoid factor, unspecified site, R21 - Rash and other nonspecific skin eruption DESMOND Reflex Titer and Pattern Today R21 - Rash and other nonspecific skin eruption Complete Blood Count Auto Diff 3 Months Z79.60 - retirement (current) use of unspecified immunomodulators and immunosuppressants Aspartate Amino Transferase 3 Months Z79.60 - retirement (current) use of unspecified immunomodulators and immunosuppressants Creatinine 3 Months Z79.60 - retirement (current) use of unspecified immunomodulators and immunosuppressants Erythrocyte Sedimentation Rate 3 Months Z79.899 - Other termite control service representative (current) drug therapy C Reactive Protein 3 Months Z79.899 - Other termite control service representative (current) drug therapy Medications: Changed From methotrexate sodium 10 mg (4 x 2.5 mg) PO QWEEK 16 tabs 0RF M19.90 - Unspecified osteoarthritis, unspecified site To methotrexate sodium 10 mg (4 x 2.5 mg) PO QWEEK 12 weeks 48 tabs 0RF M19.90 - Unspecified osteoarthritis, unspecified site Refilled folic acid 1 mg PO DAILY 90 tabs 1RF Coding Level of Care Code Est Pt Level 4 (10225) Complex EM visit Add On G2211 Diagnoses Seronegative rheumatoid arthritis M06.00 Systemic sclerosis with limited cutaneous involvement M34.9 retirement methotrexate user Z79.899 Rash and other nonspecific skin eruption R21
[2024-08-15 10:11] VITALS: BP 130/80; PULSE 74; O2SAT 99; BMI 25.4
--- OUTSIDE RECORDS SUMMARY | 2024-08-15 11:37 | XMS_ITS | Clinical Summary ---
Author Organization [facility] Address [address] [address] Phone Care Team Providers Care Job Hand Name Role Phone Cortney Blakely MD Primary Care Provider Allergies No known active allergies Medications Medication [...] reliable. Can call & schedule appt w/ [employer] to learn how to use. 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, macular edema presence unspecified, unspecified retinopathy severity; Essential hypertension 05/30/2024 Orders Only [facility] [place] [address] [place] [address] [place] [address] Adan Smith MD 05/30/2024 Refill [facility] Endocrinology [address] [place] [address] Yoselin Rich MD Medication Refill from Last [...] Description 09/11/2024 11:40 AM EDT Office Visit [facility] Endocrinology [address] [phone] Yoselin Rich MD [address] [place] [phone] [email or web address] 01/08/2025 11:20 AM EDT Office Visit [facility] [address] [place] [phone] Yoselin Rich MD [address] [place] [phone] (work) [email or web address] Health Maintenance Due Date Last Done Comments [...] URINE MICROALBUMIN <1.2 0 - 2.3 mg/dL [facility] URINE CREATININE 37 mg/dL [facility] MICROALB/CRE RATIO NOT CALCULATED 0 - 20 mg/g Cre [facility] Comment:due to Microalbumin <1.2 Urine (Urine) 05/30/2024 1:2 7 PM EST 05/30/2024 1:28 PM EST Yoselin Rich MD URINE ORDERABL ES Performing Organization Address City/State/[facility] Co de Phone Number [address] [address] * DIRECT LDL (05/30/2024 11:50 AM EST) Direct LDL 90 <100 mg/dL [facility] [address] Comment: (NOTE) Greatly elevated Triglycerides values (>1200 mg/dL) interfere with the dLDL assay. Desirable range <100 mg/dL for primary prevention; ?? <70 mg/dL for patients with CHD or diabetic patients with > or = 2 CHD risk factors. Blood 05/30/2024 11:5 0 AM EST 05/30/2024 11:53 AM EST Yoselin Rich MD LAB BLOOD ORDCori [place] [facility] [facility] [address] [facility] [address],[place] [address], [facility] * TSH with reflex (05/30/2024 11:50 AM EST) TSH 3.39 0.27 - 4.20 uIU/mL [facility] Blood 05/30/2024 11:5 0 AM EST 05/30/2024 11:53 AM EST Yoselin Rich MD LAB BLOOD ORDE NOEMI Performing Organization Address City/[facility]/ZIP Co de Phone Number [address] [address] * Alanine aminotransferase (ALT) (05/30/2024 11:50 AM EST) ALT 21 0 - 40 U/L [facility] Blood 05/30/2024 11:5 0 AM EST 05/30/2024 11:53 AM EST Yoselin Rich MD LAB BLOOD CHRIS [place] Performing Organization Address City/[facility]/ZIP Co de Phone Number [address] [address] * Aspartate aminotransferase (AST) (05/30/2024 11:50 AM EST) AST 32 0 - 37 U/L [facility] Blood 05/30/2024 11:5 0 AM EST 05/30/2024 11:53 AM EST Yoselin Rich MD LAB BLOOD ORDCori [place]LIN Performing Organization Address City/[facility]/ZIP Co de Phone Number [address] [address] * (ABNORMAL) Hemoglobin A1c (05/30/2024 11:50 AM EST) Pathologist [facility] HEMOGLOBIN A1C 7.4(H) 4.3 - 5.8 % [facility] Blood 05/30/2024 11:5 0 AM EST 05/30/2024 11:53 AM EST Yoselin Rich MD LAB BLOOD ORDCori [place] [address] [address] * Vitamin B12 (05/30/2024 11:50 AM EST) Pathologist [facility] VITAMIN B12 752 232 - 1,245 pg/mL [facility] Blood 05/30/2024 11:5 0 AM EST 05/30/2024 11:53 AM EST Yoselin Rich MD LAB BLOOD CHRIS [place] [address] [address] * (ABNORMAL) Basic metabolic panel (05/30/2024 11:50 AM EST) Pathologist [facility] SODIUM 144 133 - 146 mmol/L [facility] CHLORIDE 104 96 - 108 mmol/L [facility] POTASSIUM 5.1 3.3 - 5.1 mmol/L [facility] CO2 29 21 - 35 mmol/L [facility] BUN 14 6 - 19 mg/dL [facility] CREATININE 0.90 0.5 - 1.5 mg/dL [facility] GLUCOSE 156(H) 70 - 99 mg/dL [facility] CALCIUM 10.1 8.4 - 10.3 mg/dL [facility] EGFR 91 >59 mL/min/1.7 3m2 [facility] Comment:Estimated glomerular filtration rate calculated using the CKD-EPI refit equation. ANION GAP 16 10 - 20 mmol/L [facility] Blood 05/30/2024 11:5 0 AM EST 05/30/2024 11:53 AM EST Yoselin Rich MD LAB BLOOD CHRIS Boyd Organization Address City/State/ZIP Co de Phone Number [facility] [address] [place] [address] from Last 3 Months Care Teams Job Hand Relationship Specialty Start Date End Date Cortney Blakely MD [address] [facility] [place] [address] PCP - General Internal Medicine 09/15/22 Additional Source Comments The information contained in this document represents components of the legal health record. It is not the complete legal health record.[facility]
== END 2024-08-15 11:00 | disposition home or self-care (01) ==
LOC: HO.RHES 10:09
PROVIDERS: PCP Internal Medicine; Visit Provider Internal Medicine Rheumatology
DX: M06.00 Rheumatoid arthritis without rheumatoid factor, unspecified site (principal); M34.9 Systemic sclerosis, unspecified; Z79.899 Other long term (current) drug therapy; R21 Rash and other nonspecific skin eruption
CPT/HCPCS: 99214; G2211

== ENCOUNTER 2024-08-15 10:08 | Outpatient (REF) | payer MEDICARE, MEDICAID, SELFPAY ==
[2024-08-15 18:07] LABS: Alanine Aminotransferase 36 U/L (0-40); Aspartate Amino Transferase 40 U/L (5-37)
[2024-08-15 18:19] LABS: Rheumatoid Factor < 13.0 IU/mL (<15.0)
[2024-08-16 13:48] LABS: Scleroderma 70 Antibody <1.0 NEG AI (<1.0 NEG)
[2024-08-16 20:53] LABS: Anti-Centromere B Antibodies <1.0 NEG AI (<1.0 NEG)
[2024-08-17 14:53] LABS: Cyclic Citrullinated Peptide <16 UNITS
[2024-08-18 11:48] LABS: ANA Pattern 3 Nuclear, Speckled; Anti Nuclear Antibody Pattern Nuclear, Homogeneous; Anti Nuclear Antibody Screen POSITIVE (NEGATIVE)
[2024-08-18 17:09] LABS: TS Negative Control Passed; TS Panel A 1; TS Panel B 0; TS Positive Control Passed; TSpotTB Negative (Negative)
== END 2024-08-15 10:09 | disposition home or self-care (01) ==
LOC: HO.HKASLDS 10:08
PROVIDERS: PCP Internal Medicine; Visit Provider Internal Medicine Rheumatology
DX: M06.00 Rheumatoid arthritis without rheumatoid factor, unspecified site (principal); R21 Rash and other nonspecific skin eruption; Z79.60 Long term (current) use of unspecified immunomodulators and immunosuppressants; Z79.899 Other long term (current) drug therapy
CPT/HCPCS: 36415; 84450; 84460; 86038; 86039; 86200; 86235; 86431; 86481; 99212

== ENCOUNTER 2024-08-21 08:30 | Outpatient (REF) | payer MEDICARE, MEDICAID, SELFPAY ==
--- OUTSIDE RECORDS SUMMARY | 2024-08-21 08:33 | XMS_ITS | Clinical Summary ---
Author Organization [facility] Address [address] [address] Phone Care Team Providers Care Merry Go Round Operator Name Role Phone Cortney Blakely MD Primary Care Provider Allergies No known active allergies Medications amLODIPine (NORVASC) 5 MG tablet Take 5 [...] E10.42 on insulin 300 strip 2 10/20/19 23 Active calcium carbonate (CALCIUM 600 ORAL) Take 1 capsule by mouth daily. Active multivit-min/folic /vit K/lycop (MEN'S 50 PLUS MULTIVITAMIN ORAL) Take 1 capsule by mouth daily. Active Medication-Free TextIndications:CB D Gummie Take 15 mg by mouth every morning. Indications: CBD Gummie Active insulin syringe-needle U-100 0.3 mL 31 gauge x 5/16 SyrgIndications:Ty pe 1 diabetes mellitus with diabetic [...] daily 15 mL 3 05/30/19 25 Active Active Problems Problem Noted Date Diagnosed [...] 1 diabetes mellitus with retinopathy Overview (09/15/2022): [facility] Assessment & Plan (05/30/2024 2:14 [...] PM EST Hospital Encounter [facility] [address] [place] [address] Yoselin Rich MD Discharge Disposition: Home or Self Care 05/30/2024 11:00 AM EST Office Visit [facility] Endocrinology [place] [address] [place] [address] Yoselin Rich MD Type 1 diabetes mellitus with peripheral neuropathy (Primary Dx); 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; 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, macular edema presence unspecified, unspecified retinopathy severity; Essential hypertension 05/30/2024 Orders Only [facility] [place]ocrinology [address] [place] [address] [place] [address] Adan Smith MD 05/30/2024 Refill [facility] Endocrinology [address] [place] [address] [place] [address] Yoselin Rich MD Medication Refill from Last [...] Recorded Sex Assigned at Not on file Legal Sex Male 2:15 PM EDT Gender Identity Not on file Sexual Orientation [...] Description 09/11/2024 11:40 AM EDT Office Visit [facility] Endocrinology [address] [place] [phone] Yoselin Rich MD [address] [place] [phone] [email or web address] 01/08/2025 11:20 AM EDT Office Visit [facility] Endocrinology [address] [place] [phone] Yoselin Rich MD [address] [place] [address] [place] [address] [email or web address] Health Maintenance Due Date Last Done Comments [...] URINE MICROALBUMIN <1.2 0 - 2.3 mg/dL [facility] URINE CREATININE 37 mg/dL [facility] MICROALB/CRE RATIO NOT CALCULATED 0 - 20 mg/g Cre [facility] Comment:due to Microalbumin <1.2 Urine (Urine) 05/30/2024 1:2 7 PM EST 05/30/2024 1:28 PM EST us Yoselin Rich MD URINE ORDERABLES Final Result [facility] [address] [place] [address] * DIRECT LDL (05/30/2024 11:50 AM EST) Direct LDL 90 <100 mg/dL [facility]-[address] [place] [address] Comment: (NOTE) Greatly elevated Triglycerides values (>1200 mg/dL) interfere with the dLDL assay. Desirable range <100 mg/dL for primary prevention; ?? <70 mg/dL for patients with CHD or diabetic patients with > or = 2 CHD risk factors. Blood 05/30/2024 11:5 0 AM EST 05/30/2024 11:53 AM EST us Yoselin Rich MD LAB BLOOD ORDERABLES F inal Result [facility]Picture [facility] [facility] [address] [facility] [address] [address] * TSH with reflex (05/30/2024 11:50 AM EST) TSH 3.39 0.27 - 4.20 uIU/mL [facility] Blood 05/30/2024 11:5 0 AM EST 05/30/2024 11:53 AM EST us Yoselin Rich MD LAB BLOOD ORDERABLES F inal Result Performing Organization Address [facility] Co de Phone Number [address] [address] * Alanine aminotransferase (ALT) (05/30/2024 11:50 AM EST) ALT 21 0 - 40 U/L [facility] Blood 05/30/2024 11:5 0 AM EST 05/30/2024 11:53 AM EST us Yoselin Rich MD LAB BLOOD ORDERABLES F inal Result Performing Organization Address [facility] Co de Phone Number [address] [address] * Aspartate aminotransferase (AST) (05/30/2024 11:50 AM EST) AST 32 0 - 37 U/L [facility] Blood 05/30/2024 11:5 0 AM EST 05/30/2024 11:53 AM EST us Yoselin Rich MD LAB BLOOD ORDERABLES F inal Result Performing Organization Address City/[facility]/ZIP Co de Phone Number [address] [address] * (ABNORMAL) Hemoglobin A1c (05/30/2024 11:50 AM EST) HEMOGLOBIN A1C 7.4(H) 4.3 - 5.8 % [facility] Blood 05/30/2024 11:5 0 AM EST 05/30/2024 11:53 AM EST Yoselin Rich MD LAB BLOOD ORDERABLES F inal Result Performing Organization Address [facility]/ZIP Co de Phone Number [address] [address] * Vitamin B12 (05/30/2024 11:50 AM EST) Pathologist [facility] VITAMIN B12 752 232 - 1,245 pg/mL [facility] Blood 05/30/2024 11:5 0 AM EST 05/30/2024 11:53 AM EST Yoselin Rich MD LAB BLOOD ORDERABLES F inal Result Performing Organization Address City/[facility]/ZIP Co de Phone Number [address] [address] * (ABNORMAL) Basic metabolic panel (05/30/2024 11:50 AM EST) SODIUM 144 133 - 146 mmol/L [facility] CHLORIDE 104 96 - 108 mmol/L [facility] POTASSIUM 5.1 3.3 - 5.1 mmol/L [facility] CO2 29 21 - 35 mmol/L [facility] BUN 14 6 - 19 mg/dL [facility] CREATININE 0.90 0.5 - 1.5 mg/dL [facility] GLUCOSE 156(H) 70 - 99 mg/dL [facility] CALCIUM 10.1 8.4 - 10.3 mg/dL [facility] EGFR 91 >59 mL/min/1.7 3m2 [facility] Comment:Estimated glomerular filtration rate calculated using the CKD-EPI refit equation. ANION GAP 16 10 - 20 mmol/L [facility] Blood 05/30/2024 11:5 0 AM EST 05/30/2024 11:53 AM EST us Yoselin Rich MD LAB BLOOD ORDERABLES F inal Result [facility] [address] [place] [address] from Last 3 Months Insurance MEDICARE PART A & B [facility] MEDICARE PART A & B HEALTH MEDICARE PART A & B [facility] MEDICARE PART A & [place] A & B [facility] Care Teams Merry Go Round Operator Relationship Specialty Start Date End Date Cortney Blakely MD [address] [place] [address] PCP - General Internal Medicine 09/15/22 Additional Source Comments The information contained in this document represents components of the legal health record. It is not the complete legal health record.[facility]
[2024-08-21 10:30] LABS: Alanine Aminotransferase 28 U/L (0-40); Aspartate Amino Transferase 32 U/L (5-37); Cholesterol 155 mg/dL (<200); HDL Cholesterol 71 mg/dL (>40); LDL Cholesterol Calculated 75 mg/dL (<100); Triglycerides 47 mg/dL (<150)
== END 2024-08-21 08:31 | disposition home or self-care (01) ==
LOC: HO.HMGCLDS 08:30
PROVIDERS: PCP Internal Medicine; Visit Provider Internal Medicine
DX: E78.5 Hyperlipidemia, unspecified (principal); E10.3299 Type 1 diabetes mellitus with mild nonproliferative diabetic retinopathy without macular edema, unspecified eye; I10 Essential (primary) hypertension; D64.9 Anemia, unspecified; Z86.0101 Personal history of adenomatous and serrated colon polyps
CPT/HCPCS: 36415; 80061; 84450; 84460

== ENCOUNTER 2024-08-23 09:10 | Outpatient (AMB) | payer MEDICARE, MEDICAID, SELFPAY ==
--- NOTE | 2024-08-23 09:19 | MHC.PC.OV ---
Vital Signs 08/23/24 09:26 Height 5 ft 7 in Weight 161 lb BMI 25.2 BP 128/60 Blood Pressure Location Lt brachial Position Sitting Respiration 16 Pulse 65 Pulse Source Pulse Oximeter Temp 98.3 F Temp Source Oral Pulse Oximetry (%) 98 Oxygen Delivery Method Room Air Intake Visit Reasons: 6 months f/up-cholesterol Intake Note: Pt is here today for his 6mo. f/u labs Allergies No Known Allergies Allergy (Verified 08/23/24 10:22) Medication List - Last Reconciled 09/04/24 by Cortney Blakely MD amlodipine 5 mg PO DAILY aspirin (Adult Low Dose Aspirin) 81 mg PO DAILY calcium carbonate-vitamin D3 600 mg-10 mcg (400 unit) (Calcium 600 + D(3)) 1 tab PO DAILY cetirizine (Zyrtec) 10 mg PO DAILY folic acid 1 mg PO DAILY insulin aspart U-100 (Novolog FlexPen U-100 Insulin aspart) 5 units subcut DIRECTED insulin glargine (Lantus U-100 Insulin) 11.5 units subcut DIRECTED insulin syringe-needle U-100 As directed lisinopril 20 mg PO DAILY 3 months methotrexate sodium 10 mg (4 x 2.5 mg) PO QWEEK 12 weeks citfvolw-gcc-QF-lycopen-lutein 0.4 mg-300 mcg- 250 mcg (Centrum Silver) 1 tab PO DAILY ylgtnxvf-tduvgofne-QO 3.5-10,000-1 mg/mL-unit/mL-% 4 drps otic (ear) left QID 7 days prednisone 20 mg PO DAILY simvastatin 20 mg PO DAILY Tobacco use date assessed: 08/23/24 Fall risk assessment: No Falls in past year Last assessed Fall Risk: 08/23/24 Dental Screening Dental Screen Date: 08/23/24 Did you have a dental visit in the last 12 months?: Yes Did you have a dental problem in the last 6 months where you did not have access to dental care?: No Was dental information given to patient?: Patient has dentist HPI 6 months f/up-cholesterol HPI Details - The patient is a 73-year-old male presenting for follow-up on his hypertension and lipids. - History of essential hypertension, well-controlled with lisinopril previously dosed at 10 mg twice daily, now simplified to 20 mg once daily for ease of use. - Dyslipidemia treated with simvastatin 20 mg daily, recent lab results indicate excellent lipid control. - Previously elevated liver enzymes returned to normal levels, no current concerns. - The patient suffers from rheumatoid arthritis and systemic sclerosis, managed with methotrexate and folic acid; recent rheumatologic assessment noted lower extremity sclerodermal changes but tested negative for scleroderma antibodies. [facility] Medical History Fluid level behind tympanic membrane of both ears Hx of adenomatous polyp of colon Sacroiliac joint pain Normocytic normochromic anemia Tubular adenoma of colon Essential hypertension Type 1 diabetes mellitus with background retinopathy Dyslipidemia Inflammatory arthritis Surgical History Hx of colonoscopy No pertinent past surgical history Family History Father CVD (cardiovascular disease) Diabetes mellitus Mother Arthritis Maternal Aunt Diabetes mellitus Paternal Aunt Diabetes mellitus Sister No problems noted. Son No problems noted. Son No problems noted. Brother No problems noted. Brother No problems noted. Brother No problems noted. Brother No problems noted. Social History Housing: House Alcohol intake: current Alcohol intake frequency: a few times a month Alcohol type: beer Patient Tobacco Use Status: Never used Tobacco e-Cigarette/Vaping Use: Never Used Second Hand Smoke Exposure: No service: No Current occupational status: retired Cognitive needs: No Hearing needs: Yes Vision needs: Yes Questionnaire PHQ-9 Over the last 2 weeks, how often have you been bothered by any of the following problems? 1. Little interest or pleasure in doing things: not at all 2. Feeling down, depressed, or hopeless: not at all 3. Trouble falling or staying asleep, or sleeping too much: not at all 4. Feeling tired or having little energy: not at all 5. Poor appetite or overeating: not at all 6. Feeling bad about yourself - or that you are a failure or have let yourself or your family down: not at all 7. Trouble concentrating on things, such as reading the newspaper or watching television: not at all 8. Moving or speaking so slowly that other people could have noticed. Or the opposite - being so fidgety or restless that you have been moving around a lot more than usual: not at all 9. Thoughts that you would be better off or of hurting yourself in some way: not at all Total score: 0 Depression Screening Interpretation: Negative Depression Screening Done: Yes 84467 - PHQ-9 Billing: Yes Source: Developed by Drs. Seferino Valdez, Mehreen Briceno, Obie Mcgee and colleagues, with an educational jad from [employer]. Thrive Questionnaire Date Thrive assessed: 08/23/24 I am a: Patient What is your living situation today?: I have a steady place to live Within the past 12 months, did the food you bought not last and you didn't have the money to get more?: I choose not to answer this question Within the past 12 months, did you worry whether your food would run out before you got money to buy more?: I choose not to answer this question Do you have trouble paying for medicines?: I choose not to answer this question Do you have trouble getting transportation to medical appointments?: I choose not to answer this question Do you have trouble paying your heating and electricity bill?: I choose not to answer this question Do you have trouble taking care of your child, family member or friend?: I choose not to answer this question Do you have trouble with day-to-day activities such as bathing, preparing meals, shopping, managing finances, etc.?: I choose not to answer this question Are you currently unemployed and looking for a job?: I choose not to answer this question Are you interested in more education?: I choose not to answer this question Please select the resources that you would like help with: None Currently or been in a relationship where the following occur: I choose not to answer THRIVE Score: 0 AUDIT C Alcohol Use Questionnaire (AUDIT-C) 1. How often do you have a drink containing alcohol?: Monthly or less 2. How many drinks containing alcohol do you have on a typical day when you are drinking?: 1 or 2 3. How often do you have six or more drinks on one occasion?: Never Total Score: 1 LESVIA-7 AMB Questionnaire LESVIA-7 Date LESVIA - 7 assessed: 08/23/24 Feeling nervous, anxious, or on edge: 0 = Not at all Not being able to stop or control worryin = Not at all Worrying too much about different things: 0 = Not at all Trouble relaxin = Not at all Being so restless that it is hard to sit still: 0 = Not at all Becoming easily annoyed or irritable: 0 = Not at all Feeling afraid as if something awful might happen: 0 = Not at all Total LESVIA-7 score (0-4 normal; 5-9 mild; 10-14 moderate; 15-21 severe): 0 Source: Developed by Drs. Seferino Valdez, Mehreen Briceno, Obie Mcgee and colleagues, with an educational jad from [employer]. Review of Systems Const Denies body aches, Denies fatigue, Denies fever(s) and Denies lethargy Eyes Details: Goes to [facility] for his routine eye exam, currently up-to-date ENT Reports no additional complaints and Reports Normal hearing present Card Denies chest pain, Denies rapid heart rate, Denies irregular heart rhythm, Denies leg edema and Denies lightheadedness Resp Denies chest congestion, Denies cough and Denies pain with cough GI Denies abdominal pain, Denies melena, Denies hematochezia, Denies change in bowel habits and Denies heartburn Reports no additional complaints Skin/Breast Denies lesions and Denies rash Neuro Reports no additional complaints, Reports Normal hearing present and Denies Sensory deficit (Neuro) Psych Reports no additional complaints Endo Denies fatigue Stanley/Lymph Denies easy bleeding, Denies easy bruising and Denies lymphadenopathy Aller/Immun Reports no additional complaints Physical exam (Primary Care) Vital Signs: Last Vital Signs Temp 98.3 F 08/23/24 09:26 Pulse 65 08/23/24 09:26 Resp 16 08/23/24 09:26 BP 128/60 08/23/24 09:26 Pulse Ox 98 08/23/24 09:26 Oxygen Delivery Method Room Air 08/23/24 09:26 BMI result Body Mass Index 25.2 Tobacco/Smoking Status: Tobacco use Status Tobacco use date assessed 08/23/24 08/23/24 09:21 Patient Tobacco Use Status Never used Tobacco 08/23/24 09:20 e-Cigarette/Vaping Use Never Used 08/23/24 09:20 PHQ-9: PHQ-9 Score PHQ-9: Total score 0 08/23/24 10:33 Depression Screening Interpretation: Negative Thrive Assessment: Date of Thrive Assessment Date Thrive assessed 08/23/24 08/23/24 09:21 Currently or been in a relationship where the following occur: I choose not to answer Const General: cooperative, no acute distress and alert Orientation/consciousness: patient oriented x3 HENMT Mouth: Normal oral and palatal mucosa present and moist mucous membranes Eyes General: appearance normal, both eyes and all related structures Neck Neck: Yes full ROM and Yes no lymphadenopathy Thyroid: Thyroid normal Resp Auscultation: clear to auscultation bilaterally Cardio Jugular venous distension: no JVD Rate: regular rate Rhythm: regular rhythm Heart sounds: S1 normal heart sound present and S2 normal heart sound present GI Inspection: Yes normal to inspection Palpation (GI): Soft to palpation Auscultation: normal bowel sounds General: Yes no CVA tenderness Male General Exam: Yes normal external exam Back/Spine/Pelvis Back: no CVA tenderness and No back tenderness Skin General skin exam: no rashes or lesions noted Neuro General: patient oriented x3, gait normal, moves all extremities, no focal motor deficits and CN's II-XI intact bilaterally Cranial nerves: Yes Normal hearing present Gait exam (Neuro): Normal gait present Motor exam (neuro): 5/5 motor strength present throughout Sensory Exam: No Sensory deficit (Neuro) Extrem General: Yes normal to inspection, Yes full ROM, Yes no pedal edema and Yes normal gait Psych Appearance: grossly normal and well kempt Mental Status: mental status grossly normal Speech and movement: Normal speech and movement present Affect: normal affect Thought process: Normal thought process present Results Reviewed Results Reviewed: Name: Kevin Serrato Age/Sex: 73/M : 1950 Unit#: [id number] Attend Dr: Cortney Blakely MD Re08/21/24 Status: DEP [facility] Disch: SPEC : [id number] LUCILA: 08/21/24 STATUS: COMP REQ : [id number] RECD: 08/21/[address]: Cortney Blakely MD COMP: 08/21/24 ENTERED: 08/21/24 [facility] : ORDERED: AST, ALT, Lipid Panel Test Result Flag Reference AST (GOT) 32 5-37 U/L ALT (GPT) 28 0-40 U/L Triglyceride 47 <150 mg/dL Desirable Triglyceride: less than 150 mg/dL Borderline High Triglyceride 150-199 mg/dL High Triglyceride: 200-499 mg/dL Very High Triglyceride: greater than or equal to 5OO mg/dL Cholesterol 155 <200 mg/dL Desirable Cholesterol: less than 200 mg/dL Borderline High Cholesterol: 200-239 mg/dL High Cholesterol: greater than 239 mg/dL LDL Calculated 75 <100 mg/dL Desirable LDL: less than 100 mg/dL Near Optimal/Above Optimal LDL: 110-129 mg/dL Borderline High LDL: 130-159 mg/dL High LDL: 160-189 mg/dL Very High LDL: greater than or equal to 190 mg/dL HDL 71 >40 mg/dL Desirable HDL: greater than 40 mg/dL Note: This HDL assay may give artificially low results in patients with liver disease. Coding Level of Care Code Est Pt Level 4 (90283) Complex EM visit Add On G2211 Diagnoses Dyslipidemia E78.5 Essential hypertension I10 Additional Codes PHQ-9 - 31671 - PHQ-9 Billing: Yes ([id number]) Assessment & Plan Assessment & Plan (1) Dyslipidemia: Code(s): E78.5 - Hyperlipidemia, unspecified Category: Medical Plan: Continued on simvastatin 20 mg daily (2) Essential hypertension: Code(s): I10 - Essential (primary) hypertension Category: Medical Plan: Continued on lisinopril 20 mg daily in addition to amlodipine 5 mg once a day Orders: Orders Lipid Panel 02/10/25 I10 - Essential (primary) hypertension, E78.5 - Hyperlipidemia, unspecified Aspartate Amino Transferase 02/10/25 I10 - Essential (primary) hypertension, E78.5 - Hyperlipidemia, unspecified Basic Metabolic Panel Fasting 02/10/25 I10 - Essential (primary) hypertension, E78.5 - Hyperlipidemia, unspecified Alanine Aminotransferase 02/10/25 I10 - Essential (primary) hypertension, E78.5 - Hyperlipidemia, unspecified Medications: Changed From lisinopril 20 mg (2 x 10 mg) PO DAILY 180 tabs 1RF To lisinopril 20 mg PO DAILY 90 tabs 4RF 3 months Refilled amlodipine 5 mg PO DAILY 90 tabs 4RF simvastatin 20 mg PO DAILY 90 tabs 4RF
[2024-08-23 09:26] VITALS: BP 128/60; PULSE 65; RESP 16; TEMP 36.8; O2SAT 98; BMI 25.2
--- OUTSIDE RECORDS SUMMARY | 2024-08-23 09:39 | XMS_ITS | Clinical Summary ---
Author Organization [facility] Address [address] [address] Phone Care Team Providers Care General Operations Agent Name Role Phone Cortney Blakely MD Primary [...] 1 diabetes mellitus with retinopathy Overview (09/15/2022): [facility] Assessment & Plan (05/30/2024 2:14 [...] PM EST Hospital Encounter [facility] [address] [place] [address] Yoselin Rich MD Discharge Disposition: Home or Self Care 05/30/2024 11:00 AM EST Office Visit [facility] [place] [address] [place] [address] Yoselin Rich MD Type 1 diabetes mellitus with peripheral neuropathy (Primary Dx); 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; 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, macular edema presence unspecified, unspecified retinopathy severity; Essential hypertension 05/30/2024 Orders Only [facility] [address] [place] [address] [place] [address] Adan Smith MD 05/30/2024 Refill [facility] [address] [place] [address] [place] [address] Yoselin Rich MD Medication Refill from Last [...] Description 09/11/2024 11:40 AM EDT Office Visit [facility] [place] [address] [place] [phone] Yoselin Rich MD [address] [place] [id number] [email or web address] 01/08/2025 11:20 AM EDT Office Visit [facility] [place] [address] [place] [phone] Yoselin Rich MD [address] [place] [address] [place] [phone] [email or web address] Health Maintenance Due Date Last Done Comments [...] URINE MICROALBUMIN <1.2 0 - 2.3 mg/dL [facility] URINE CREATININE 37 mg/dL [facility] MICROALB/CRE RATIO NOT CALCULATED 0 - 20 mg/g Cre [facility] Comment:due to Microalbumin <1.2 Urine (Urine) 05/30/2024 1:2 7 PM EST 05/30/2024 1:28 PM EST us Yoselin Rich MD URINE ORDERABLES Final Result [facility] [address] [place] [address] * DIRECT LDL (05/30/2024 11:50 AM EST) Direct LDL 90 <100 mg/dL [facility] [place] [address] Comment: (NOTE) Greatly elevated Triglycerides values (>1200 mg/dL) interfere with the dLDL assay. Desirable range <100 mg/dL for primary prevention; ?? <70 mg/dL for patients with CHD or diabetic patients with > or = 2 CHD risk factors. Blood 05/30/2024 11:5 0 AM EST 05/30/2024 11:53 AM EST us Yoselin Rich MD LAB BLOOD ORDERABLES F inal Result [employer] [facility] [facility] [address] [facility] [address] [address] * TSH with reflex (05/30/2024 11:50 AM EST) TSH 3.39 0.27 - 4.20 uIU/mL [facility] Blood 05/30/2024 11:5 0 AM EST 05/30/2024 11:53 AM EST us Yoselin Rich MD LAB BLOOD ORDERABLES F inal Result Performing Organization Address [facility] Co de Phone Number [address] [address] * Alanine aminotransferase (ALT) (05/30/2024 11:50 AM EST) ALT 21 0 - 40 U/L [facility] Blood 05/30/2024 11:5 0 AM EST 05/30/2024 11:53 AM EST us Yoselin Rich MD LAB BLOOD ORDERABLES F inal Result Performing Organization Address [facility] Co de Phone Number [address] [address] * Aspartate aminotransferase (AST) (05/30/2024 11:50 AM EST) AST 32 0 - 37 U/L [facility] Blood 05/30/2024 11:5 0 AM EST 05/30/2024 11:53 AM EST us Yoselin Rich MD LAB BLOOD ORDERABLES F inal Result Performing Organization Address City/[facility]/ZIP Co de Phone Number [address] [address] * (ABNORMAL) Hemoglobin A1c (05/30/2024 11:50 AM EST) HEMOGLOBIN A1C 7.4(H) 4.3 - 5.8 % [facility] Blood 05/30/2024 11:5 0 AM EST 05/30/2024 11:53 AM EST Yoselin Rich MD LAB BLOOD ORDERABLES F inal Result Performing Organization Address [facility]/ZIP Co de Phone Number [address] [address] * Vitamin B12 (05/30/2024 11:50 AM EST) Pathologist [facility] VITAMIN B12 752 232 - 1,245 pg/mL [facility] Blood 05/30/2024 11:5 0 AM EST 05/30/2024 11:53 AM EST Yoselin Rich MD LAB BLOOD ORDERABLES F inal Result Performing Organization Address City/[facility]/ZIP Co de Phone Number [address] [address] * (ABNORMAL) Basic metabolic panel (05/30/2024 11:50 AM EST) SODIUM 144 133 - 146 mmol/L [facility] CHLORIDE 104 96 - 108 mmol/L [facility] POTASSIUM 5.1 3.3 - 5.1 mmol/L [facility] CO2 29 21 - 35 mmol/L [facility] BUN 14 6 - 19 mg/dL [facility] CREATININE 0.90 0.5 - 1.5 mg/dL [facility] GLUCOSE 156(H) 70 - 99 mg/dL [facility] CALCIUM 10.1 8.4 - 10.3 mg/dL [facility] EGFR 91 >59 mL/min/1.7 3m2 [facility] Comment:Estimated glomerular filtration rate calculated using the CKD-EPI refit equation. ANION GAP 16 10 - 20 mmol/L [facility] Blood 05/30/2024 11:5 0 AM EST 05/30/2024 11:53 AM EST us Yoselin Rich MD LAB BLOOD ORDERABLES F inal Result [facility] [address] [place] [address] from Last 3 Months Insurance MEDICARE PART A & B [facility] MEDICARE PART A & B HEALTH MEDICARE PART A & B [place] MEDICARE PART A & [place] B [facility] Care Teams General Operations Agent Relationship Specialty Start Date End Date Cortney Blakely MD [address] [place] [address] PCP - General Internal Medicine 09/15/22 Additional Source Comments The information contained in this document represents components of the legal health record. It is not the complete legal health record.[facility]
== END 2024-08-23 10:36 | disposition home or self-care (01) ==
LOC: HO.HMCC 09:11
PROVIDERS: PCP Internal Medicine; Visit Provider Internal Medicine
DX: E78.5 Hyperlipidemia, unspecified (principal); I10 Essential (primary) hypertension

== ENCOUNTER → 2024-08-23 09:10 | Outpatient (BNVA) | payer MEDICARE, MEDICAID, SELFPAY | PROVIDERS: PCP Internal Medicine; Visit Provider Internal Medicine | DX: E78.5 Hyperlipidemia, unspecified (principal); I10 Essential (primary) hypertension | CPT/HCPCS: 96127; 99212 ==

== ENCOUNTER 2024-11-28 12:45 | Outpatient (REF) | payer MEDICARE, MEDICAID, SELFPAY ==
--- OUTSIDE RECORDS SUMMARY | 2024-11-28 13:55 | XMS_ITS | Clinical Summary ---
Author Organization [facility] Address [address] [place] [phone] Phone Care Team Providers Care Water Systems Engineer Name Role Phone Cortney Blakely MD Primary [...] Take 1 capsule by mouth daily. Active insulin syringe-needle U-100 0.3 mL 31 gauge x 16 SyrgIndications:Ty pe 1 diabetes mellitus with diabetic neuropathy Use as directed to administer insulin daily 100 each 3 05/04/19 Active Additional Information Patient not taking.Reported on 09/11/2024 folic acid (FOLVITE) 1 MG tablet Take 1 tablet by mouth every morning. 08/03/19 24 Active BD ULTRA-FINE VIVIAN PEN NEEDLE 32 gauge x NdleIndications:Ty pe 1 diabetes mellitus with diabetic [...] e 1 diabetes mellitus with peripheral neuropathy 10 units, subcutaneously, once daily 15 mL 3 09/12/19 25 Active Active Problems Problem Noted Date Diagnosed Date Type 1 diabetes mellitus with peripheral neuropa thy 1972 Assessment & Plan (09/11/2024 12:42 PM EDT): + tinea pedis on exam, to rx with OTC anti-fungal Assessment & Plan (05/30/2024 2:13 PM EST): [...] was increased). Essential hypertension Assessment & Plan (09/11/2024 12:42 PM EDT): Well controlled today. Managed by PCP Assessment & Plan (05/30/2024 2:12 PM EST): [...] rx. Type 1 diabetes mellitus with hypoglycemia abby strauss Overview (09/15/2022): Hx severe hypoglycemia Assessment & Plan (09/11/2024 12:44 PM EDT): Control suboptimal with excessive, mild hypoglycemia. No severe hypoglycemia. Using CGM to help avoid. Using PB/chocolate to address lows. Strongly advised he use source of more rapid-acting sugar to more promptly raise glucose. Also advised he cut back on insulin w/ most of meals to help avoid lows. Will do labs if able to get done prior to leaving on trip. To call if hasn't heard from us within 1-2 weeks. Continue to work on eating healthy & keeping active. To call or send in BG with problems with glycemic control. Umalb/creat up to date, normal. Assessment & Plan (05/30/2024 2:13 PM EST): [...] how to set up and place the freeGreenFuelyle ramana 2 sensor. He put the sensor [...] 1 diabetes mellitus with retinopathy Overview (09/15/2022): [facility] Assessment & Plan (09/11/2024 12:42 PM EDT): Up to date with ophtho. 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; Essential hypertension 08/28/2024 Refill [facility] [address] [place] [address] Yoselin Rich MD Medication Refill from Last [...] Sign Reading Time Taken Comments Blood Pressure 120/64 09/11/2024 11:34 AM EDT Pulse 64 09/11/2024 11:34 AM EDT Temperature 36.3 C (97.4 F) 05/30/2024 10:49 AM EST Respiratory Rate 16 05/30/2024 10:49 AM EST Oxygen Saturation 99% 09/11/2024 11:34 AM EDT Inhaled Oxygen Concentration - - Weight 74.4 kg (164 lb) 09/11/2024 11:34 AM EDT Height 175.6 cm (5' 9.13 ) 09/11/2024 11:34 AM E DT Body Mass Index 24.12 09/11/2024 11:34 AM EDT Plan of Treatment Upcoming Encounters Date Type Department Care Team (Late st Contact Info) Description 01/08/2025 11:20 AM EDT Office Visit [facility] Endocrinology [address] [place] [phone] Yoselin Rich MD [address] [place] [phone] [email or web address] 04/09/2025 11:40 AM EST Office Visit [facility] Endocrinology [address] [place] [phone] Yoselin Rich MD [address] [place] [phone] [email or web address] Health Maintenance Due Date Last Done Comments Adult Td,Tdap Booster 1950 COVID-19 VACCINE (#1) 10/07/1956 DEPRESSION SCREENING 1963 HEPATITIS C SCREENING 10/07/1969 PNEUMOCOCCAL VACCINES (50+ years) (1 of 2 - PCV) 10/07/1970 ZOSTER VACCINES (1 of 2) 10/07/1970 COLOGUARD 10/07/1996 COLONOSCOPY 10/07/1996 COLORECTAL CANCER SCREENING 10/07/1996 FIT TEST 10/07/1996 FOBT 10/07/1996 SIGMOIDOSCOPY 10/07/1996 VIRTUAL COLONOSCOPY 10/07/1996 RSV VACCINE (1 - Risk 60-74 years 1-dose series) 2011 DIABETIC EYE EXAM 09/15/2022 HEMOGLOBIN A1C 11/27/2024 05/30/2024, 02/10, 11/16/2023, Additional history exists BLOOD PRESSURE 03/13/2025 09/11/2024 CREATININE LEVEL 05/30/2025 05/30/2024, , 02/28/2024, Additional [...] age to complete this topic MENINGOCOCCAL VACCINES (B) Aged Out N o longer eligible based on patient's age to complete this topic Medical Devices Not on file Procedures Procedure Name Priority Date/Time Associated Diagnosis Comments HEMOGLOBIN A1C Routine 05/30/2024 11:50 AM EST Type 1 diabetes mellitus with peripheral neuropathy BASIC METABOLIC PANEL Routine 05/30/2024 11:50 AM EST Type 1 diabetes mellitus with peripheral neuropathy from Last 3 Months or Most Recently Relevant to Health Maintenance Results * (ABNORMAL) Hemoglobin A1c (05/30/2024 11:50 AM EST) HEMOGLOBIN A1C 7.4(H) 4.3 - 5.8 % [facility] Blood 05/30/2024 11:5 0 AM EST 05/30/2024 11:53 AM EST Yoselin Rich MD LAB BLOOD ORDERABLES F inal Result [address] [id number] * (ABNORMAL) Basic metabolic panel (05/30/2024 11:50 AM EST) SODIUM 144 133 - 146 mmol/L [facility] CHLORIDE 104 96 - 108 mmol/L [facility] POTASSIUM 5.1 3.3 - 5.1 mmol/L [facility] CO2 29 21 - 35 mmol/L [facility] BUN 14 6 - 19 mg/dL [facility] CREATININE 0.90 0.5 - 1.5 mg/dL [facility] GLUCOSE 156(H) 70 - 99 mg/dL [facility] CALCIUM 10.1 8.4 - 10.3 mg/dL [facility] EGFR 91 >59 mL/min/1.7 3m2 [facility] Comment:Estimated glomerular filtration rate calculated using the CKD-EPI refit equation. ANION GAP 16 10 - 20 mmol/L [facility] Blood 05/30/2024 11:5 0 AM EST 05/30/2024 11:53 AM EST Yoselin Rich MD LAB BLOOD ORDERABLES F inal Result [facility] [address] [place] [address] from Last 3 Months or Most Recently Relevant to Health Maintenance Insurance MEDICARE PART A & B [facility] MEDICARE PART A & B HEALTH MEDICARE PART A & B MEDICARE PART A & [place] & B HEALTH MEDICARE PART A & B [facility] Care Teams Water Systems Engineer Relationship Specialty Start Date End Date Cortney Blakely MD [facility] [place] [address] PCP - General Internal Medicine 09/15/22 Additional Source Comments The information contained in this document represents components of the legal health record. It is not the complete legal health record.[facility]
[2024-11-28 16:13] LABS: MANUAL DIFF FLAG NO
[2024-11-28 16:35] LABS: Hematocrit 39.6 % (42.0-52.0); Hemoglobin 13.2 g/dl (14.0-18.0); Imm Gran Abs Auto 0.02 X10*3/uL (0.00-0.03); Imm Gran Pct Auto 0.3 % (0.0-0.4); Lymphocytes Absolute Auto 2.6 X10*3/uL (1.2-4.9); Mean Corpuscular HGB Conc 33.3 g/dl (31.0-36.0); Mean Corpuscular Hemoglobin 30.1 pg (27.0-33.0); Mean Corpuscular Volume 90.2 fL (80.0-98.0); NRBC Abs Auto 0.000 X10*3/uL (0.0-0.012); NRBC Pct Auto 0.0 /100WBC (0.0-0.2); Platelet Count 249 X10*3/uL (160-400); Red Blood Count 4.39 X10*6/uL (4.60-5.80); White Blood Count 7.6 X10*3/uL (4.8-10.8)
[2024-11-28 17:00] LABS: Alanine Aminotransferase 25 U/L (0-40); Aspartate Amino Transferase 30 U/L (5-37); Estimated Glomerular Filt Rate > 60
== END 2024-11-28 12:46 | disposition home or self-care (01) ==
LOC: HO.HMGCLDS 12:45
PROVIDERS: PCP Internal Medicine; Visit Provider Internal Medicine Rheumatology
DX: Z79.899 Other long term (current) drug therapy (principal); Z79.60 Long term (current) use of unspecified immunomodulators and immunosuppressants
CPT/HCPCS: 36415; 82565; 84450; 84460; 85025; 85652; 86140

== ENCOUNTER 2024-12-28 09:52 | Outpatient (AMB) | payer MEDICARE, MEDICAID, SELFPAY ==
[2024-12-28 10:10] VITALS: BP 120/60; PULSE 63; O2SAT 98; BMI 25.5
--- NOTE | 2024-12-28 10:10 | MHC.OFFVIS ---
Vital Signs 12/28/24 10:10 Height 5 ft 7 in Weight 162 lb 14.746 oz BMI 25.5 BP 120/60 Blood Pressure Location Rt brachial Position Sitting Pulse 63 Pulse Source Pulse Oximeter Pulse Oximetry (%) 98 Oxygen Delivery Method Room Air Intake Visit Reasons: 4 Months Intake Note: Patient presents for RA. Accompanied by: Self / Same As Patient Allergies No Known Allergies Allergy (Verified 08/23/24 10:22) HPI HPI 4 Months: Details: No new joint symptoms. No worsening skin tightness. He is experiencing stiffness in his hands when he is using them. Denies any recent infections. [facility] Medical History Fluid level behind tympanic membrane of both ears Hx of adenomatous polyp of colon Sacroiliac joint pain Normocytic normochromic anemia Tubular adenoma of colon Essential hypertension Type 1 diabetes mellitus with background retinopathy Dyslipidemia Inflammatory arthritis Surgical History Hx of colonoscopy No pertinent past surgical history Family History Father CVD (cardiovascular disease) Diabetes mellitus Mother Arthritis Maternal Aunt Diabetes mellitus Paternal Aunt Diabetes mellitus Sister No problems noted. Son No problems noted. Son No problems noted. Brother No problems noted. Brother No problems noted. Brother No problems noted. Brother No problems noted. Social History Housing: House Alcohol intake: current Alcohol intake frequency: a few times a month Alcohol type: beer Patient Tobacco Use Status: Never used Tobacco e-Cigarette/Vaping Use: Never Used Second Hand Smoke Exposure: No service: No Current occupational status: retired Cognitive needs: No Hearing needs: Yes Vision needs: Yes Physical Exam Vital Signs: Last Vital Signs Pulse 63 12/28/24 10:10 BP 120/60 12/28/24 10:10 Pulse Ox 98 12/28/24 10:10 Oxygen Delivery Method Room Air 12/28/24 10:10 BMI result Body Mass Index 25.5 Const Other: General: Comfortable CVS: RRR Respiratory: clear to auscultation bilaterally. 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 He has skin tightening of lower extremities up to knees. MSK: No tender joints. No synovitis. He is able to education counselor his hands. Normal range of motion of upper extremity and lower extremities. No MTP tenderness. Assessment & Plan Assessment & Plan (1) Systemic sclerosis with limited cutaneous involvement: Comment: Clinical diagnosis. DESMOND 1:80. Negative anticentromere antibody and Scl-70. He does not have Raynaud's phenomenon, dysphagia or telangiectasia on exam. He has been on methotrexate since 2018, which also controls cutaneous disease. He is experiencing stiffness in his hands related to sclerodactyly. We discussed optimizing methotrexate dose. Code(s): M34.9 - Systemic sclerosis, unspecified Category: Medical Plan: Increase methotrexate 15 mg once weekly Continue folic acid 1 mg daily Labs up-to-date for drug monitoring and high-risk medication. He will have labs for drug monitoring on methotrexate in 1 month Return to clinic in 3 months (2) Seronegative rheumatoid arthritis: Comment: In clinical remission on monotherapy with methotrexate. Rheumatology history: Seronegative presenting with inflammatory arthritis in his hands. dx 2016 MR hand showing synovitis and tenosynovitis. on MTX 17.5 mg since 2017 advanced to 20 mg due to synovitis 2020, reduced to 15 mg 09/2021, reduced to 10 mg 07/2023. Code(s): M06.00 - Rheumatoid arthritis without rheumatoid factor, unspecified site Category: Medical Plan: Increasing methotrexate to 15 mg once weekly to better control cutaneous disease from systemic sclerosis Continue folic acid 1 mg daily Return to clinic in 3 months (3) retirement methotrexate user: Code(s): Z79.899 - Other middle or intermediate school principal (current) drug therapy Category: Medical Plan: See above Orders: Orders Erythrocyte Sedimentation Rate 1 Month Z79.899 - Other fci (current) drug therapy Complete Blood Count Auto Diff 1 Month Z79.899 - Other fci (current) drug therapy Alanine Aminotransferase 1 Month Z79.899 - Other middle or intermediate school principal (current) drug therapy Aspartate Amino Transferase 1 Month Z79.899 - Other fci (current) drug therapy Creatinine 1 Month Z79.899 - Other middle or intermediate school principal (current) drug therapy C Reactive Protein 1 Month Z79.899 - Other middle or intermediate school principal (current) drug therapy Medications: Changed From methotrexate sodium 10 mg (4 x 2.5 mg) PO QWEEK 12 weeks 48 tabs 0RF M19.90 - Unspecified osteoarthritis, unspecified site To methotrexate sodium 15 mg (6 x 2.5 mg) PO QWEEK 72 tabs 0RF 12 weeks M19.90 - Unspecified osteoarthritis, unspecified site Coding Level of Care Code Est Pt Level 4 (93746) Complex EM visit Add On G2211 Diagnoses Systemic sclerosis with limited cutaneous involvement M34.9 Seronegative rheumatoid arthritis M06.00 retirement methotrexate user Z79.899
--- OUTSIDE RECORDS SUMMARY | 2024-12-28 11:33 | XMS_ITS | Clinical Summary ---
Author Organization [facility] Address [address] [place] [phone] Phone Care Team Providers Care Reference Archivist Name Role Phone Cortney Blakely MD Primary [...] how to set up and place the freeMarketectureyle ramana 2 sensor. He put the sensor [...] 1 diabetes mellitus with retinopathy Overview (09/15/2022): [facility] Assessment & Plan (09/11/2024 12:42 PM EDT): [...] Encounters Date Type Department Care Team Description 12/20/2024 Orders Only [facility] [address] [facility] [address] [place] [address] Tonia Lange MD from Last 3 Months Immunizations No known [...] Description 01/08/2025 11:20 AM EDT Office Visit [facility] Endocrinology [address] [place] [phone] Yoselin Rich MD [address] [place] [phone] 04/09/2025 11:40 AM EST Office Visit [facility] Endocrinology [address] [place] [phone] Yoselin Rich MD [address] [place] [phone] [email or web address] Health Maintenance Due Date Last Done Comments [...] DIABETIC EYE EXAM 09/15/2022 INFLUENZA VACCINE (#1) 2024 HEMOGLOBIN A1C 11/27/2024 05/30/2024, 02/10, 11/16/2023, Additional [...] HEMOGLOBIN A1C 7.4(H) 4.3 - 5.8 % [facility] Blood 05/30/2024 11:5 0 AM EST 05/30/2024 11:53 AM EST us Yoselin Rich MD LAB BLOOD ORDERABLES F inal Result Performing Organization Address City/State/[facility] Co de Phone Number [address] [phone] * (ABNORMAL) Basic metabolic panel (05/30/2024 11:50 AM EST) SODIUM 144 133 - 146 mmol/L [facility] CHLORIDE 104 96 - 108 mmol/L [facility] POTASSIUM 5.1 3.3 - 5.1 mmol/L [facility] CO2 29 21 - 35 mmol/L [facility] BUN 14 6 - 19 mg/dL [facility] CREATININE 0.90 0.5 - 1.5 mg/dL [facility] GLUCOSE 156(H) 70 - 99 mg/dL [facility] CALCIUM 10.1 8.4 - 10.3 mg/dL [facility] EGFR 91 >59 mL/min/1.7 3m2 [facility] Comment:Estimated glomerular filtration rate calculated using the CKD-EPI refit equation. ANION GAP 16 10 - 20 mmol/L [facility] Blood 05/30/2024 11:5 0 AM EST 05/30/2024 11:53 AM EST us Yoselin Rich MD LAB BLOOD ORDERABLES F inal Result [facility] [address] [place] [address] from Last 3 Months or Most Recently Relevant to Health Maintenance Insurance MEDICARE PART A & B [facility] MEDICARE PART A & B [place] [facility] PART A & [facility] & [facility] MEDICARE PART A & B MEDICARE PART A & B [facility] Care Teams Reference Archivist Relationship Specialty Start Date End Date Cortney Blakely MD [facility] [place] [address] PCP - General Internal Medicine 09/15/22 Additional Source Comments The information contained in this document represents components of the legal health record. It is not the complete legal health record.[facility]
== END 2024-12-28 10:43 | disposition home or self-care (01) ==
LOC: HO.RHES 09:53
PROVIDERS: PCP Internal Medicine; Visit Provider Internal Medicine Rheumatology
DX: M34.9 Systemic sclerosis, unspecified (principal); M06.00 Rheumatoid arthritis without rheumatoid factor, unspecified site; Z79.899 Other long term (current) drug therapy
CPT/HCPCS: 99214; G2211

== ENCOUNTER → 2024-12-28 09:52 | Outpatient (BNVA) | payer MEDICARE, MEDICAID, SELFPAY | PROVIDERS: PCP Internal Medicine; Visit Provider Internal Medicine Rheumatology | DX: M34.9 Systemic sclerosis, unspecified (principal); M06.00 Rheumatoid arthritis without rheumatoid factor, unspecified site; Z79.631 Long term (current) use of antimetabolite agent | CPT/HCPCS: 99212 ==

== ENCOUNTER 2025-02-05 13:11 | Outpatient (REF) | payer MEDICARE, MEDICAID, SELFPAY ==
[2025-02-05 16:04] LABS: MANUAL DIFF FLAG NO
[2025-02-05 16:23] LABS: Hematocrit 39.9 % (42.0-52.0); Hemoglobin 13.1 g/dl (14.0-18.0); Imm Gran Abs Auto 0.02 X10*3/uL (0.00-0.03); Imm Gran Pct Auto 0.2 % (0.0-0.4); Lymphocytes Absolute Auto 2.0 X10*3/uL (1.2-4.9); Mean Corpuscular HGB Conc 32.8 g/dl (31.0-36.0); Mean Corpuscular Hemoglobin 30.3 pg (27.0-33.0); Mean Corpuscular Volume 92.4 fL (80.0-98.0); NRBC Abs Auto 0.000 X10*3/uL (0.0-0.012); NRBC Pct Auto 0.0 /100WBC (0.0-0.2); Platelet Count 267 X10*3/uL (160-400); Red Blood Count 4.32 X10*6/uL (4.60-5.80); White Blood Count 9.6 X10*3/uL (4.8-10.8)
[2025-02-05 16:27] LABS: Alanine Aminotransferase 31 U/L (0-40); Aspartate Amino Transferase 33 U/L (5-37); Estimated Glomerular Filt Rate > 60
--- OUTSIDE RECORDS SUMMARY | 2025-02-05 16:49 | XMS_ITS | Clinical Summary ---
Author Organization [facility] Address [address] [place] [phone] Phone Care Team Providers Care Quantitative Consultant Name Role Phone Cortney Blakely MD Primary Care Provider Allergies No known active allergies Medications amLODIPine (NORVASC) 5 MG tablet Take 5 mg by mouth every evening. 08/28/19 23 Active lisinopril (PRINIVIL,ZESTRIL ) 10 MG tablet Take 20 mg by mouth every morning. 07/05/19 23 Active methotrexate 2.5 MG Oral tablet Take 10 mg by mouth once a week. 09/09/19 23 Active FREESTYLE LITE Strp stripsIndications :Type 1 diabetes mellitus with diabetic neuropathy 1 each by Miscellaneous route 3 (three) times a day before meals. Dx E10.42 on insulin 300 strip 2 10/20/19 Active calcium carbonate (CALCIUM 600 ORAL) Take 1 capsule by mouth daily. Active multivit-min/foli c/vit K/lycop (MEN'S 50 PLUS MULTIVITAMIN ORAL) Take 1 capsule by mouth daily. Active insulin syringe-needle U-100 0.3 mL 31 gauge x 16 SyrgIndications:T ype 1 diabetes mellitus with diabetic neuropathy Use as directed to administer insulin daily 100 each 3 05/04/19 Active Additional Information Patient not taking.Reported on 01/08/2025 folic acid (FOLVITE) 1 MG tablet Take 1 tablet by mouth every morning. 08/03/19 24 Active BD ULTRA-FINE VIVIAN PEN NEEDLE 32 gauge x 532 NdleIndications:T ype 1 diabetes mellitus with diabetic neuropathy 1 each by Miscellaneous route 3 (three) times a day. 300 each 3 09/16/19 24 Active insulin aspart U-100 (NOVOLOG FLEXPEN U-100 INSULIN) 100 unit/mL (3 mL) injection penIndications:Ty pe 1 diabetes mellitus with peripheral neuropathy Inject 3-10 Units under the skin 3 (three) times a day with meals. Plus 2 units to prime pen with each dose. 30 mL 3 02/28/20 24 Active simvastatin (ZOCOR) 20 MG tabletIndications :Hyperlipidemia, unspecified hyperlipidemia type TAKE 1 TABLET BY MOUTH ONCE DAILY IN THE MORNING 90 tablet 1 05/30/19 25 Active LANTUS SOLOSTAR U-100 INSULIN 100 unit/mL (3 mL) InPn injection penIndications:Ty pe 1 diabetes mellitus with peripheral neuropathy 9-10 units, subcutaneously, once daily 15 mL 3 01/09/20 25 Active LANTUS SOLOSTAR U-100 INSULIN 100 unit/mL (3 mL) InPn injection penIndications:Ty pe 1 diabetes mellitus with peripheral neuropathy 10 units, subcutaneously, once daily 15 mL 3 09/12/19 25 025 Discontin ued(Dose adjustmen t) Active Problems Problem Noted Date Diagnosed Date [...] was increased). Essential hypertension Assessment & Plan (01/08/2025 1:04 PM EDT): Well controlled today. Managed by PCP Assessment & Plan (09/11/2024 12:42 PM EDT): [...] (09/15/2022): Hx severe hypoglycemia Assessment & Plan (01/08/2025 1:04 PM EDT): Control reasonable, if not optimal. No severe hypoglycemia. Using CGM to help avoid. Await labs done today. Advised to cut back on lantus to 9 units and/or take less mealtime insulin prior to meals when will be active after & less @ hs to avoid lows overnight. Strongly advised him to consider combination pump/sensor to help improve control, he will think about & do some research.Continue to work on eating healthy & keeping active. To call or send in BG with problems with glycemic control. Umalb/creat up to date, normal. BP under good control. Assessment & Plan (09/11/2024 12:44 PM EDT): [...] 1 diabetes mellitus with retinopathy Overview (09/15/2022): [facility] Assessment & Plan (01/08/2025 1:04 PM EDT): Up to date with ophtho. 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, macular edema presence unspecified, unspecified retinopathy severity; Essential hypertension 01/08/2025 11:16 AM EDT - 01/08/2025 11:59 PM EDT Hospital Encounter [facility] [address] [place] [address] Yoselin Rich MD Discharge Disposition: Home or Self Care 12/20/2024 Orders Only [address] [place] [address] Tonia Lange MD from Last 3 Months [...] Sign Reading Time Taken Comments Blood Pressure 122/68 01/08/2025 11:21 AM EDT Pulse 60 01/08/2025 11:21 AM EDT Temperature 36.3 C (97.3 F) 01/08/2025 11:21 AM EDT Respiratory Rate 20 01/08/2025 11:21 AM EDT Oxygen Saturation 99% 01/08/2025 11:21 AM EDT Inhaled Oxygen Concentration - - Weight 75.3 kg (166 lb) 01/08/2025 11:21 AM EDT Height 175.6 cm (5' 9.13 ) 09/11/2024 11:34 AM E DT Body Mass Index 24.42 09/11/2024 11:34 AM EDT Plan of Treatment Upcoming Encounters Date Type Department Care Team (Late st Contact Info) Description 04/09/2025 11:40 AM EST Office Visit [facility] Endocrinology [address] [phone] Yoselin Rich MD [address] [place] [phone] [email or web address] 07/02/2025 11:40 AM EDT Office Visit [facility] Endocrinology [address] [place] [phone] Yoselin Rich MD [address] [place] [phone] [email or web address] Health Maintenance Due Date Last Done Comments Adult Td,Tdap Booster 1950 COVID-19 VACCINE (#1) 10/07/1956 DEPRESSION SCREENING 1963 HEPATITIS C SCREENING 10/07/1969 PNEUMOCOCCAL VACCINES (50+ years) (1 of 2 - PCV) 10/07/1970 ZOSTER VACCINES (1 of 2) 10/07/1970 COLOGUARD 10/07/1996 COLONOSCOPY 10/07/1996 COLORECTAL CANCER SCREENING 10/07/1996 FIT TEST 10/07/1996 FOBT 10/07/1996 SIGMOIDOSCOPY 10/07/1996 VIRTUAL COLONOSCOPY 10/07/1996 RSV VACCINE (1 - Risk 50-74 years 1-dose series) 10/07/2001 DIABETIC EYE EXAM 09/15/2022 INFLUENZA VACCINE (#1) 2024 BLOOD PRESSURE 07/08/2025 01/08/2025 HEMOGLOBIN A1C 07/08/2025 01/08/2025, 05/13, 02/28/2024, Additional history exists CREATININE LEVEL 01/08/2026 01/08/2025, , 02/29/2024, Additional history exists POTASSIUM LEVEL 01/08/2026 01/08/2025, 05/13, 02/28/2024, Additional history exists SMOKING STATUS SCREENING (Once After 26 Yrs) Completed 01/08/2025 HEPATITIS A VACCINES Aged Out No long [...] Date/Time Associated Diagnosis Comments HEMOGLOBIN A1C Routine 01/08/2025 11:13 AM EDT Type 1 diabetes mellitus with peripheral neuropathy ASPARTATE AMINOTRANSFERASE (AST) Routine 01/08/2025 11:13 AM EDT Type 1 diabetes mellitus with peripheral neuropathy ALANINE AMINOTRANSFERASE (ALT) Routine 01/08/2025 11:13 AM EDT Type 1 diabetes mellitus with peripheral neuropathy BASIC METABOLIC PANEL Routine 01/08/2025 11:13 AM EDT Type 1 diabetes mellitus with peripheral neuropathy from Last 3 Months Results * Alanine aminotransferase (ALT) (01/08/2025 11:13 AM EDT) ALT 20 0 - 40 U/L [facility] Blood 01/08/2025 11:1 3 AM EDT 01/08/2025 11:17 AM EDT Yoselin Rihc MD LAB BLOOD ORDERABLES F inal Result Performing Organization Address [facility] Co de Phone Number [address] [address] * Aspartate aminotransferase (AST) (01/08/2025 11:13 AM EDT) AST 24 0 - 37 U/L [facility] Blood 01/08/2025 11:1 3 AM EDT 01/08/2025 11:17 AM EDT Yoselin Rich MD LAB BLOOD ORDERABLES F inal Result Performing Organization Address [facility] Co de Phone Number [address] [address] * (ABNORMAL) Hemoglobin A1c (01/08/2025 11:13 AM EDT) HEMOGLOBIN A1C 7.3(H) 4.3 - 5.8 % [facility] Blood 01/08/2025 11:1 3 AM EDT 01/08/2025 11:16 AM EDT Yoselin Rich MD LAB BLOOD ORDERABLES F inal Result Performing Organization Address City/[facility]/ZIP Co de Phone Number [address] [address] * (ABNORMAL) Basic metabolic panel (01/08/2025 11:13 AM EDT) SODIUM 138 133 - 146 mmol/L [facility] CHLORIDE 102 96 - 108 mmol/L [facility] POTASSIUM 4.5 3.3 - 5.1 mmol/L [facility] CO2 24 21 - 35 mmol/L [facility] BUN 20(H) 6 - 19 mg/dL [facility] CREATININE 0.90 0.5 - 1.5 mg/dL [facility] GLUCOSE 338(H) 70 - 99 mg/dL [facility] CALCIUM 9.4 8.4 - 10.3 mg/dL [facility] EGFR 90 >59 mL/min/1.7 3m2 [facility] Comment:Estimated glomerular filtration rate calculated using the CKD-EPI refit equation. ANION GAP 17 10 - 20 mmol/L [facility] Blood 01/08/2025 11:1 3 AM EDT 01/08/2025 11:17 AM EDT Yoselin Rich MD LAB BLOOD ORDERABLES F inal Result [address] [address] from Last 3 Months Insurance [place]ICARE PART [place] [id number] [facility]IC[facility] [place] [facility] Care Teams Quantitative Consultant Relationship Specialty Start Date End Date Cortney Blakely MD [address] [place] [place] [address] PCP - General Internal Medicine 09/15/22 Additional Source Comments The information contained in this document represents components of the legal health record. It is not the complete legal health record.[facility]
== END 2025-02-05 13:12 | disposition home or self-care (01) ==
LOC: HO.HMGCLDS 13:11
PROVIDERS: PCP Internal Medicine; Visit Provider Internal Medicine Rheumatology
DX: Z79.899 Other long term (current) drug therapy (principal)
CPT/HCPCS: 36415; 82565; 84450; 84460; 85025; 85652; 86140

== ENCOUNTER 2025-02-12 09:07 | Outpatient (REF) | payer MEDICARE, MEDICAID, SELFPAY ==
--- OUTSIDE RECORDS SUMMARY | 2025-02-12 10:06 | XMS_ITS | Clinical Summary ---
Author Organization [facility] Address [address] [place] [phone] Phone Care Team Providers Care Communication Professor Name Role Phone Cortney Blakely MD Primary [...] VIVIAN PEN NEEDLE 32 gauge x 532 NdleIndications:Ty pe 1 diabetes mellitus with diabetic [...] e 1 diabetes mellitus with peripheral neuropathy 9-10 units, subcutaneously, once daily 15 mL 3 01/09/20 25 Active Active Problems Problem Noted Date [...] how to set up and place the Vhallyle ramana 2 sensor. 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, macular edema presence unspecified, unspecified retinopathy severity; Essential hypertension 01/08/2025 11:16 AM EDT - 01/08/2025 11:59 PM EDT Hospital Encounter [facility] [place] [address] [place] [place] [address] Yoselin Rich MD Discharge Disposition: Home or Self Care 12/20/2024 Orders Only [address] [address] Tonia Lange MD from Last 3 Months [...] Description 04/09/2025 11:40 AM EST Office Visit [facility] Endocrinology [place] [address] [place] [place] [phone] Yoselin Rich MD [address] [place] [phone] [email or web address] 07/02/2025 11:40 AM EDT Office Visit [facility] Endocrinology [place] [address] [place] [phone] Yoselin Rich MD [address] [place] [address] [address] [place] [address] [email or web address] Maintenance Due Date Last Done Comments [...] mellitus with peripheral neuropathy BASIC METABOLIC PANEL (BMP) Routine 01/08/2025 11:13 AM EDT Type 1 diabetes mellitus with peripheral neuropathy from Last 3 Months Results * Alanine aminotransferase (ALT) (01/08/2025 11:13 AM EDT) ALT 20 0 - 40 U/L [facility] Blood 01/08/2025 11:1 3 AM EDT 01/08/2025 11:17 AM EDT Yoselin Rich MD LAB BLOOD BKR ORDERABL ES Final Result Performing Organization Address City/[facility]/ZIP Co de Phone Number [address] [address] * Aspartate aminotransferase (AST) (01/08/2025 11:13 AM EDT) AST 24 0 - 37 U/L [facility] Blood 01/08/2025 11:1 3 AM EDT 01/08/2025 11:17 AM EDT Yoselin Rich MD LAB BLOOD BKR ORDERABL ES Final Result [address] [address] * (ABNORMAL) Hemoglobin A1c (01/08/2025 11:13 AM EDT) HEMOGLOBIN A1C 7.3(H) 4.3 - 5.8 % [facility] Blood 01/08/2025 11:1 3 AM EDT 01/08/2025 11:16 AM EDT Yoselin Rich MD LAB BLOOD BKR ORDERABL ES Final Result Performing Organization Address [facility]/ZIP Co de Phone Number [address] [address] * (ABNORMAL) Basic metabolic panel (01/08/2025 11:13 AM EDT) SODIUM 138 133 - 146 mmol/L [facility] CHLORIDE 102 96 - 108 mmol/L [facility] POTASSIUM 4.5 3.3 - 5.1 mmol/L [facility] CO2 24 21 - 35 mmol/L [facility] BUN 20(H) 6 - 19 mg/dL [facility] CREATININE 0.90 0.5 - 1.5 mg/dL [facility] GLUCOSE 338(H) 70 - 99 mg/dL [facility] CALCIUM 9.4 8.4 - 10.3 mg/dL [facility] EGFR 90 >59 mL/min/1.7 3m2 [facility] Comment:Estimated glomerular filtration rate calculated using the CKD-EPI refit equation. ANION GAP 17 10 - 20 mmol/L [facility] Blood 01/08/2025 11:1 3 AM EDT 01/08/2025 11:17 AM EDT Yoselin Rich MD LAB BLOOD BKR ORDERABL ES Final Result Performing Organization Address [facility] Co de Phone Number [address] [address] from Last 3 Months Insurance MEDICARE PART A & [facility] [place] [id number] MEDICARE PART A [place] [id number] MEDICARE PART A & B HEALTH MEDICARE PART A [place] [id number] MEDICARE PART A & B MEDIC[place] PART [place] [id number] Care Teams Communication Professor Relationship Specialty Start Date End Date Cortney Blakely MD 1960 [facility] [place] [address] PCP - General Internal Medicine 09/15/22 Additional Source Comments The information contained in this document represents components of the legal health record. It is not the complete legal health record.[facility]
[2025-02-12 11:15] LABS: Alanine Aminotransferase 27 U/L (0-40); Anion Gap 9 (12-20); Aspartate Amino Transferase 28 U/L (5-37); Blood Urea Nitrogen 21 mg/dL (9-16); Calcium 8.8 mg/dL (8.4-10.2); Carbon Dioxide 29 mmol/L (22-29); Chloride 108 mmol/L (96-108); Cholesterol 178 mg/dL (<200); Estimated Glomerular Filt Rate > 60; HDL Cholesterol 76 mg/dL (>40); Potassium 3.9 mmol/L (3.3-5.1); Sodium 142 mmol/L (135-145); Triglycerides 54 mg/dL (<150)
== END 2025-02-12 09:08 | disposition home or self-care (01) ==
LOC: HO.HMGCLDS 09:07
PROVIDERS: PCP Internal Medicine; Visit Provider Internal Medicine
DX: I10 Essential (primary) hypertension (principal); E78.5 Hyperlipidemia, unspecified
CPT/HCPCS: 36415; 80048; 80061; 84450; 84460

== ENCOUNTER 2025-02-20 11:18 | Outpatient (AMB) | payer MEDICARE, MEDICAID, SELFPAY ==
--- NOTE | 2025-02-20 12:09 | A.OFFPC_ITS ---
Vital Signs 02/20/25 12:18 Height 5 ft 7 in Weight 165 lb BMI 25.8 BP 134/70 Blood Pressure Location Lt brachial Position Sitting Respiration 16 Pulse 71 Pulse Source Pulse Oximeter Temp 97.7 F Temp Source Oral Pulse Oximetry (%) 95 Oxygen Delivery Method Room Air Intake Visit Reasons: 6 months f/up-cholesterol Intake Note: Pt is here today for his 6mo. f/u Business Services Analyst Required: No Allergies No Known Allergies Allergy (Verified 02/20/25 12:38) Medication List - Last Reconciled 02/20/25 by Cortney Blakely MD amlodipine 5 mg PO DAILY aspirin (Adult Low Dose Aspirin) 81 mg PO DAILY calcium carbonate-vitamin D3 600 mg-10 mcg (400 unit) (Calcium 600 + D(3)) 1 tab PO DAILY folic acid 1 mg PO DAILY insulin aspart U-100 (Novolog FlexPen U-100 Insulin aspart) 5 units subcut DIRECTED insulin glargine (Lantus U-100 Insulin) 11.5 units subcut DIRECTED insulin syringe-needle U-100 As directed lisinopril 20 mg PO DAILY 3 months methotrexate sodium 15 mg (6 x 2.5 mg) PO QWEEK 12 weeks nqgjkcgw-rys-GX-lycopen-lutein 0.4 mg-300 mcg- 250 mcg (Centrum Silver) 1 tab PO DAILY simvastatin 20 mg PO DAILY Tobacco use date assessed: 02/20/25 Fall risk assessment: No Falls in past year Last assessed Fall Risk: 02/20/25 Dental Screening Dental Screen Date: 02/20/25 Did you have a dental visit in the last 12 months?: Yes Did you have a dental problem in the last 6 months where you did not have access to dental care?: No Was dental information given to patient?: Patient has dentist HPI 6 months f/up-cholesterol HPI Details 74-year-old male with history of rheumat oid arthritis and systemic sclerosis as well as diabetes mellitus currently followed by rheumatology and endocrine clinic respectively, here today for follow-up on his hypertension and dyslipidemia. He has been compliant with taking his medications, but admits to not getting any regular exercise. Blood pressure stable and controlled on present treatment with lisinopril 20 mg daily and amlodipine 5 mg once a day. He had recent fasting labs done which showed electrolytes, renal function, lipids within normal limits. 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 Son No problems noted. Son No problems noted. Brother No problems noted. Brother No problems noted. Brother No problems noted. Brother No problems noted. Social History Housing: House Alcohol intake: current Alcohol intake frequency: a few times a month Alcohol type: beer Patient Tobacco Use Status: Never used Tobacco e-Cigarette/Vaping Use: Never Used Second Hand Smoke Exposure: No service: No Current occupational status: retired Cognitive needs: No Hearing needs: Yes Vision needs: Yes Questionnaire PHQ-9 Over the last 2 weeks, how often have you been bothered by any of the following problems? 1. Little interest or pleasure in doing things: not at all 2. Feeling down, depressed, or hopeless: not at all 3. Trouble falling or staying asleep, or sleeping too much: not at all 4. Feeling tired or having little energy: not at all 5. Poor appetite or overeating: not at all 6. Feeling bad about yourself - or that you are a failure or have let yourself or your family down: not at all 7. Trouble concentrating on things, such as reading the newspaper or watching television: not at all 8. Moving or speaking so slowly that other people could have noticed. Or the opposite - being so fidgety or restless that you have been moving around a lot more than usual: not at all 9. Thoughts that you would be better off or of hurting yourself in some way: not at all Total score: 0 Depression Screening Interpretation: Negative Depression Screening Done: Yes Source: Developed by Drs. Seferino Valdez, Mehrene Briceno, Obie Mcgee and colleagues, with an educational jad from [employer]. Thrive Questionnaire Date Thrive assessed: 08/23/24 I am a: Patient What is your living situation today?: I have a steady place to live Within the past 12 months, did the food you bought not last and you didn't have the money to get more?: I choose not to answer this question Within the past 12 months, did you worry whether your food would run out before you got money to buy more?: I choose not to answer this question Do you have trouble paying for medicines?: I choose not to answer this question Do you have trouble getting transportation to medical appointments?: I choose not to answer this question Do you have trouble paying your heating and electricity bill?: I choose not to answer this question Do you have trouble taking care of your child, family member or friend?: I choose not to answer this question Do you have trouble with day-to-day activities such as bathing, preparing meals, shopping, managing finances, etc.?: I choose not to answer this question Are you currently unemployed and looking for a job?: I choose not to answer this question Are you interested in more education?: I choose not to answer this question Please select the resources that you would like help with: None Currently or been in a relationship where the following occur: I choose not to answer THRIVE Score: 0 AUDIT C Alcohol Use Questionnaire (AUDIT-C) 1. How often do you have a drink containing alcohol?: Monthly or less 2. How many drinks containing alcohol do you have on a typical day when you are drinking?: 1 or 2 3. How often do you have six or more drinks on one occasion?: Never Total Score: 1 LESVIA-7 AMB Questionnaire LESVIA-7 Date LESVIA - 7 assessed: 08/23/24 Feeling nervous, anxious, or on edge: 0 = Not at all Not being able to stop or control worryin = Not at all Worrying too much about different things: 0 = Not at all Trouble relaxin = Not at all Being so restless that it is hard to sit still: 0 = Not at all Becoming easily annoyed or irritable: 0 = Not at all Feeling afraid as if something awful might happen: 0 = Not at all Total LESVIA-7 score (0-4 normal; 5-9 mild; 10-14 moderate; 15-21 severe): 0 Source: Developed by Drs. Seferino Valdez, Mehreen Briceno, Obie Mcgee and colleagues, with an educational jad from [employer]. Review of Systems Const Denies body aches, Denies fatigue, Denies fever(s) and Denies lethargy Eyes Details: Goes to [facility] for his routine eye exam, currently up-to-date ENT Reports no additional complaints and Reports Normal hearing present Card Denies chest pain, Denies rapid heart rate, Denies irregular heart rhythm, Denies leg edema and Denies lightheadedness Resp Denies chest congestion, Denies cough and Denies pain with cough GI Denies abdominal pain, Denies melena, Denies hematochezia, Denies change in bowel habits and Denies heartburn Reports no additional complaints Musc Reports no additional complaints Skin/Breast Denies lesions and Denies rash Neuro Reports no additional complaints, Reports Normal hearing present and Denies Sensory deficit (Neuro) Psych Reports no additional complaints Endo Denies fatigue Stanley/Lymph Denies easy bleeding, Denies easy bruising and Denies lymphadenopathy Aller/Immun Reports no additional complaints Physical exam (Primary Care) Vital Signs: Last Vital Signs Temp 97.7 F 02/20/25 12:18 Pulse 71 02/20/25 12:18 Resp 16 02/20/25 12:18 BP 134/70 02/20/25 12:18 Pulse Ox 95 02/20/25 12:18 Oxygen Delivery Method Room Air 02/20/25 12:18 BMI result Body Mass Index 25.8 Tobacco/Smoking Status: Tobacco use Status Tobacco use date assessed 02/20/25 02/20/25 12:14 Patient Tobacco Use Status Never used Tobacco 02/20/25 12:14 e-Cigarette/Vaping Use Never Used 02/20/25 12:14 PHQ-9: PHQ-9 Score PHQ-9: Total score 0 02/25/25 23:10 Depression Screening Interpretation: Negative Thrive Assessment: Date of Thrive Assessment Date Thrive assessed 08/23/24 02/20/25 12:14 Currently or been in a relationship where the following occur: I choose not to answer Const General: cooperative, no acute distress and alert Orientation/consciousness: patient oriented x3 HENMT Mouth: Normal oral and palatal mucosa present and moist mucous membranes Eyes General: appearance normal, both eyes and all related structures Neck Neck: Yes full ROM and Yes no lymphadenopathy Thyroid: Thyroid normal Resp Auscultation: clear to auscultation bilaterally Cardio Jugular venous distension: no JVD Rate: regular rate Rhythm: regular rhythm Heart sounds: S1 normal heart sound present and S2 normal heart sound present GI Inspection: Yes normal to inspection Palpation (GI): Soft to palpation Auscultation: normal bowel sounds General: Yes no CVA tenderness Male General Exam: Yes normal external exam Back/Spine/Pelvis Back: no CVA tenderness and No back tenderness Skin General skin exam: no rashes or lesions noted Neuro General: patient oriented x3, gait normal, moves all extremities, no focal motor deficits and CN's II-XI intact bilaterally Cranial nerves: Yes Normal hearing present Gait exam (Neuro): Normal gait present Motor exam (neuro): 5/5 motor strength present throughout Sensory Exam: No Sensory deficit (Neuro) Extrem General: Yes normal to inspection, Yes full ROM, Yes no pedal edema and Yes normal gait Psych Appearance: grossly normal and well kempt Mental Status: mental status grossly normal Speech and movement: Normal speech and movement present Affect: normal affect Thought process: Normal thought process present Results Reviewed Results Reviewed: Name: Kevin Serrato Age/Sex: 74/M : 1950 Unit#: [id number] Attend Dr: Cortney Blakely MD Re02/12/25 Status: DEP REF Location: [facility] [address] Disch: SPEC : [id number] LUCILA: 02/12/25 STATUS: COMP REQ : [id number] RECD: 02/12/[address]: Cortney Blakely MD COMP: 02/12/25 ENTERED: 02/12/[address]: ORDERED: Met Prof Fast, AST, ALT, Lipid Panel Test Result Flag Reference Sodium 142 135-145 mmol/L Potassium 3.9 3.3-5.1 mmol/L CL 108 96-108 mmol/L CO2 29 22-29 mmol/L Gap 9 L 12-20 BUN 21 H 9-16 mg/dL Creat 0.90 0.5-1.4 mg/dL eGFR > 60 Chronic Kidney Disease: Estimated GFR < 60 mL/min/1.73m2 Severe Kidney Disease: Estimated GFR < 15 mL/min/1.73m2 FBS 99 60-99 mg/dL CA 8.8 # 8.4-10.2 mg/dL AST (GOT) 28 5-37 U/L ALT (GPT) 27 0-40 U/L Triglyceride 54 <150 mg/dL Desirable Triglyceride: less than 150 mg/dL Borderline High Triglyceride 150-199 mg/dL High Triglyceride: 200-499 mg/dL Very High Triglyceride: greater than or equal to 5OO mg/dL Cholesterol 178 <200 mg/dL Desirable Cholesterol: less than 200 mg/dL Borderline High Cholesterol: 200-239 mg/dL High Cholesterol: greater than 239 mg/dL LDL Calculated 92 <100 mg/dL Desirable LDL: less than 100 mg/dL Near Optimal/Above Optimal LDL: 110-129 mg/dL Borderline High LDL: 130-159 mg/dL High LDL: 160-189 mg/dL Very High LDL: greater than or equal to 190 mg/dL HDL 76 >40 mg/dL Desirable HDL: greater than 40 mg/dL Note: This HDL assay may give artificially low results in patients with liver disease. 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 Continue simvastatin 20 mg at bedtime , in addition to adherence to low- cholesterol diet and regular exercise, at least 30 minutes 3 to 4 times a week. Advised patient to make healthy food choices, eat more fruits, vegetables, whole grains, wild caught fish and low-fat dairy. Limit amount of meat and fried or fatty food products, as well as processed foods and fast foods. Follow-up scheduled with repeat fasting lipid panel in 3 months. (2) Essential hypertension: Code(s): I10 - Essential (primary) hypertension Category: Medical Plan: Blood pressure at goal of less than 130/80. Continue with current medication. Reinforced importance of following a low sodium diet, getting regular exercise, and lowering stress levels. 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 Rich, currently on NovoLog 5 units as directed and Lantus 11.5 units once a day (4) Seronegative rheumatoid arthritis: Comment: In clinical remission on monotherapy with methotrexate. Rheumatology history: Seronegative presenting with inflammatory arthritis in his hands. dx 2015 MR hand showing synovitis and tenosynovitis. on MTX 17.5 mg since 2017 advanced to 20 mg due to synovitis 2020, reduced to 15 mg 09/2021, reduced to 10 mg 07/2023. Code(s): M06.00 - Rheumatoid arthritis without rheumatoid factor, unspecified site Category: Medical Plan: Follow[place] [facility] [place] Orders: Orders Lipid Panel 05/13/25 E10.3299 - Type 1 diabetes mellitus with mild nonprolife rative diabetic retinopathy without macular edema, unspecified eye, E78.5 - Hyperlipidemia, unspecified, I10 - Essential (primary) hypertension, M06.00 - Rheumatoid arthritis without rheumatoid factor, unspecified site Microalbumin, Random (w Creat) 05/13/25 E10.3299 - Type 1 diabetes mellitus with mild nonproliferative diabetic retinopathy without macular edema, unspeci fied eye, E78.5 - Hyperlipidemia, unspecified, I10 - Essential (primary) hypertension, M06.00 - Rheumatoid arthritis without rheumatoid factor, unspecified site Vitamin D 25-OH Total 05/13/25 E10.3299 - Type 1 diabetes mellitus with mild nonproliferative diabetic retinopathy without macular edema, unspecified eye, E78.5 - Hyperlipidemia, unspecified, I10 - Essential (primary) hypertension, M06.00 - Rheumatoid arthritis without rheumatoid factor, unspecified site Aspartate Amino Transferase 05/13/25 E10.3299 - Type 1 diabetes mellitus with m ild nonproliferative diabetic retinopathy without macular edema, unspecified eye, E78.5 - Hyperlipidemia, unspecified, I10 - Essential (primary) hypertension, M06.00 - Rheumatoid arthritis without rheumatoid factor, unspecified site Alanine Aminotransferase 05/13/25 E10.3299 - Type 1 diabetes mellitus with mild nonproliferative diabetic retinopathy without macular edema, unspecified eye, E78.5 - Hyperlipidemia, unspecified, I10 - Essential (primary) hypertension, M06.00 - Rheumatoid arthritis without rheumatoid factor, unspecified site Hemoglobin A1c 05/13/25 E10.3299 - Type 1 diabetes mellitus with mild nonproliferative diabetic retinopathy without macular edema, unspecified eye, E78.5 - Hyperlipidemia, unspecified, I10 - Essential (primary) hypertension, M06.00 - Rheumatoid arthritis without rheumatoid factor, unspecified site Basic Metabolic Panel Fasting 05/13/25 E10.3299 - Type 1 diabetes mellitus with mild nonproliferative diabetic retinopathy without macular edema, unspecified eye, E78.5 - Hyperlipidemia, unspecified, I10 - Essential (primary) hypertension, M06.00 - Rheumatoid arthritis without rheumatoid factor, unspecified site PSA,Total (Free>4and<10) 05/13/25 E10.3299 - Type 1 diabetes mellitus with mild nonproliferative diabetic retinopathy without macular edema, unspecified eye, E78.5 - Hyperlipidemia, unspecified, I10 - Essential (primary) hypertension, M06.00 - Rheumatoid arthritis without rheumatoid factor, unspecified site Medications: Refilled lisinopril 20 mg PO DAILY 90 tabs 4RF 3 months amlodipine 5 mg PO DAILY 90 tabs 4RF simvastatin 20 mg PO DAILY 90 tabs 4RF
[2025-02-20 12:18] VITALS: BP 134/70; PULSE 71; RESP 16; TEMP 36.5; O2SAT 95; BMI 25.8
--- OUTSIDE RECORDS SUMMARY | 2025-02-20 13:31 | XMS_ITS | Clinical Summary ---
Author Organization [facility] Address [address] [place] [id number] Phone Care Team Providers Care Automotive Dismantler Name Role Phone Cortney Blakely MD Primary [...] how to set up and place the Rapid Vocabularyyle ramana 2 sensor. He put the sensor [...] 1 diabetes mellitus with retinopathy Overview (09/15/2022): [facility] Assessment & Plan (01/08/2025 1:04 [...] Type Department Care Team Description 01/27/[address] [address] Tonia Lange MD 01/08/2025 11:20 AM EDT Office Visit [facility] [place] [address] [place] [address] Yoselin Rich MD 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 (Primary Dx); Type 1 diabetes mellitus with peripheral neuropathy; 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, macular edema presence unspecified, unspecified retinopathy severity; Essential hypertension 01/08/2025 11:16 AM EDT - 01/08/2025 11:59 PM EDT Hospital Encounter [facility] [place] [address] [place] [place] [address] Yoselin Rich MD Discharge Disposition: Home or Self Care 12/20/2024 Orders Only [address] [address] Tonia Lnage MD from Last 3 Months Immunizations No [...] Description 04/09/2025 11:40 AM EST Office Visit [facility] Endocrinology [place] [address] [place] [address] Yoseiln Rich MD [address] [place] [id number] [email or web address] 07/02/2025 11:40 AM EDT Office Visit [facility] Endocrinology [place] [address] [place] [phone] Yoselin Rich MD [address] [place] [address] [address] [place] [address] [email or web address] Maintenance Due Date Last Done Comments [...] EDT) ALT 20 0 - 40 U/L [facility] Blood 01/08/2025 11:1 3 AM EDT 01/08/2025 11:17 AM EDT Yoselin Rich MD LAB BLOOD BKR ORDERABL ES Final Result Performing Organization Address City/[facility]/ZIP Co de Phone Number [address] [address] * Aspartate aminotransferase (AST) (01/08/2025 11:13 AM EDT) AST 24 0 - 37 U/L [facility] Blood 01/08/2025 11:1 3 AM EDT 01/08/2025 11:17 AM EDT Yoselin Rich MD LAB BLOOD BKR ORDERABL ES Final Result [address] [address] * (ABNORMAL) Hemoglobin A1c (01/08/2025 11:13 AM EDT) HEMOGLOBIN A1C 7.3(H) 4.3 - 5.8 % [facility] Blood 01/08/2025 11:1 3 AM EDT 01/08/2025 11:16 AM EDT Yoselin Rich MD LAB BLOOD BKR ORDERABL ES Final Result Performing Organization Address [facility]/ZIP Co de Phone Number [address] [address] * (ABNORMAL) Basic metabolic panel (01/08/2025 11:13 AM EDT) SODIUM 138 133 - 146 mmol/L [facility] CHLORIDE 102 96 - 108 mmol/L [facility] POTASSIUM 4.5 3.3 - 5.1 mmol/L [facility] CO2 24 21 - 35 mmol/L [facility] BUN 20(H) 6 - 19 mg/dL [facility] CREATININE 0.90 0.5 - 1.5 mg/dL [facility] GLUCOSE 338(H) 70 - 99 mg/dL [facility] CALCIUM 9.4 8.4 - 10.3 mg/dL [facility] EGFR 90 >59 mL/min/1.7 3m2 [facility] Comment:Estimated glomerular filtration rate calculated using the CKD-EPI refit equation. ANION GAP 17 10 - 20 mmol/L [facility] Blood 01/08/2025 11:1 3 AM EDT 01/08/2025 11:17 AM EDT Yoselin Rich MD LAB BLOOD BKR ORDERABL ES Final Result Performing Organization Address [facility] Co de Phone Number [address] [address] from Last 3 Months Insurance MEDICARE PART A & [facility] [place] [id number] MEDICARE PART A [place] [id number] MEDICARE PART A & B [place] MED[place] [id number] MEDICARE PART A & [place] MEDICARE PART [place] [id number] Care Teams Automotive Dismantler Relationship Specialty Start Date End Date Cortney Blakely MD [address] [place] [address] PCP - General Internal Medicine 09/15/22 Additional Source Comments The information contained in this document represents components of the legal health record. It is not the complete legal health record.[facility]
== END 2025-02-20 12:48 | disposition home or self-care (01) ==
LOC: HO.HMCC 11:18
PROVIDERS: PCP Internal Medicine; Visit Provider Internal Medicine
DX: E78.5 Hyperlipidemia, unspecified (principal); I10 Essential (primary) hypertension; E10.3299 Type 1 diabetes mellitus with mild nonproliferative diabetic retinopathy without macular edema, unspecified eye; M06.00 Rheumatoid arthritis without rheumatoid factor, unspecified site

== ENCOUNTER → 2025-02-20 11:18 | Outpatient (BNVA) | payer MEDICARE, MEDICAID, SELFPAY | PROVIDERS: PCP Internal Medicine; Visit Provider Internal Medicine | DX: E78.5 Hyperlipidemia, unspecified (principal); I10 Essential (primary) hypertension; E10.3299 Type 1 diabetes mellitus with mild nonproliferative diabetic retinopathy without macular edema, unspecified eye; M06.00 Rheumatoid arthritis without rheumatoid factor, unspecified site | CPT/HCPCS: 99212 ==